=== PATIENT | female | born 1955 | race Caucasian/White ===

== ENCOUNTER 2024-07-07 09:40 | Emergency (ER) | payer MEDICARE, OTHER, SELFPAY ==
--- NOTE | ~2024-07-07 | XR_ITS ---
EXAMINATION: XR elbow RT min 3V DATE: 07/07/2024 11:28 INDICATION: Right elbow pain and swelling post fall TECHNIQUE: Anteroposterior, two oblique and lateral views of the right elbow were obtained. COMPARISON: None. FINDINGS: Alignment is normal. Subtle cortical discontinuity the right radial head neck junction with subtle li near sclerosis extending transversely across the head neck junction consistent with a minimally impac michelle fracture. No evident involvement of the articular cortex. Mild osteoarthritis at the right elbow. Small enthesophytes at the medial and lateral epicondyles. Small right elbow joint effusion with dis placement of the anterior but not the posterior fat pads. Soft tissues are otherwise unremarkable. IMPRESSION: 1. Minimally impacted fracture the proximal right radial head neck junction with small elbow joint ef fusion. Reviewed, dictated and finalized at location A. IMPRESSION: 1. Minimally impacted fracture the proximal right radial head neck junction wit h small elbow joint effusion.
--- NOTE | ~2024-07-07 | XR_ITS ---
EXAMINATION: XR wrist RT min 3V DATE: 07/07/2024 11:29 INDICATION: Right wrist pain and swelling post fall TECHNIQUE: Posteroanterior, ulnar deviation, oblique, and lateral views of the right wrist were obtai valentina. COMPARISON: none FINDINGS: Alignment is normal. No fracture. Mild polyarticular osteoarthritis at the wrist, distal radioulnar, triscaphe, first carpometacarpal joint and many of the visualized interphalangeal joints. Soft tissue s are unremarkable. IMPRESSION: 1. Polyarticular osteoarthritis at the right hand and wrist. No acute osseous abnormality. Reviewed, dictated and finalized at location A. IMPRESSION: 1. Polyarticular osteoarthritis at the right hand and wrist. No acute osseous a bnormality.
--- NOTE | ~2024-07-07 | XR_ITS ---
EXAMINATION: [id number] DATE: 07/07/2024 11:28 INDICATION: Right rib pain post fall TECHNIQUE: A frontal inspiratory view of the chest and I views of the right ribs were obtained. COMPARISON: None FINDINGS: Old healed fracture at the right humeral neck. Irregular contours suspicious for minimally displaced fracture of the anteriormost fourth-seventh ribs although differential would include artifact of the costochondral calcifications. Lungs are clear with no focal airspace opacities, pulmonary edema, pleu ral effusion or pneumothorax. Heart size within normal limits for AP technique. Left ventricular assi st device. Dual lead pacemaker/AICD seen with leads projecting over the expected locations of the rig ht atrium and right ventricle. IMPRESSION: 1. Possible acute minimally displaced fracture of the anterior right fourth-seventh ribs. Correlate f or point tenderness at this location. Alternatively this could be artifact of costochondral calcifica tions. 2. No pneumothorax or other acute cardiopulmonary disease. Reviewed, dictated and finalized at location A. IMPRESSION: 1. Possible acute minimally displaced fracture of the anterior right fourth-sev enth ribs. Correlate for point tenderness at this location. Alternatively this could be artifact of costochondral calcifications. 2. No pneumothorax or other acute cardiopulmonary disease.
--- NOTE | ~2024-07-07 | XR_ITS ---
EXAMINATION: XR finger 1st LT min 2V DATE: 07/07/2024 11:29 INDICATION: Left thumb pain and swelling TECHNIQUE: Dorsal palmar, lateral and oblique views of the left first digit were obtained COMPARISON: None FINDINGS: Bone alignment is normal. No fracture. Mild osteoarthritis at the distal radioulnar and at the first carpometacarpal, metacarpophalangeal and interphalangeal joints. IMPRESSION: 1. Mild polyarticular osteoarthritis at the left hand and wrist. No acute osseous abnormality. Reviewed, dictated and finalized at location A. IMPRESSION: 1. Mild polyarticular osteoarthritis at the left hand and wrist. No acute osseo us abnormality.
--- OUTSIDE RECORDS SUMMARY | 2024-07-07 10:13 | XMS_ITS | Encounter Summary ---
Author Organization [facility] Address [address] [place] [address] Phone Care Team Providers Care Sweatband Decorating Machine Operator Name Role Phone Scotty Oneil MD Primary Care Provider [phone] Maeve Multani MD Unavailable [phone] Castillo Hollis MD Unavailable Kiara King RN Unavailable Gisel Byrd RN Unavailable [phone] Aleta Cevallos RN Unavailable [phone] Josette Ramirez MD Unavailable Miscellaneous, Not In File Unavailable Unava Zenia Brown MA Unavailable Encounter Details Date Type Department Care Team (Late st Contact Info) Description 07/23/2017 Telephone [facility] Cardiology [address] [facility] [address] [place] [address] [place] [address] Parth Bartlett MD [address] [facility] [address] [place] [address] Social History Tobacco Use Types Packs/Day Years Used Date Smoking Tobacco: Never Smokeless Tobacco: Never Alcohol Use Standard Drinks/Week Comments No 0 (1 standard drink = 0.6 oz pur e alcohol) Comments Unknown Sex and Gender Information Value Date Recorded Sex Assigned at Not on file Legal Sex Female 11:50 PM PC INSTALLATION ENGINEER Gender Identity Female 05/25/2020 10:45 AM CDT Sexual Orientation Straight 07/07/2019 7: 18 PM CDT documented as of this encounter Plan of Treatment Not on file documented as of this encounter Visit Diagnoses Not on filedocumented in this encounter Additional Health Concerns Infection Onset Date Last Indicated Resolved Time COVID: Suspected Comment:Removed after ID review. 06/08/2019 Rajat Riggsmeagan 06/07/2019 06/07/2019 06/08/2019 8:27 AM C DT MRSA 08/15/2019 08/15/2019 09/27/2020 5:00 AM CDT COVID: Suspected 02/14/2020 02/14/2020 02/15/2020 1:07 PM PC INSTALLATION ENGINEER Respiratory Infection (ZOHRA), contact + droplet Comment:Automatically added due to negative COVID-19 result. 02/15/2020 02/15/2020 02/29/2020 3:0 7 AM PC INSTALLATION ENGINEER COVID19 03/14/2020 03/14/2020 03/28/2020 3:06 AM PC INSTALLATION ENGINEER COVID: Recovered Comment:Added based on recent COVID infection. 03/28/2020 03/29/2020 07/26/2020 3:05 AM C DT COVID: Suspected 01/17/2022 01/17/2022 01/17/2022 10:16 AM PC INSTALLATION ENGINEER COVID19 02/12/2022 02/12/2022 02/25/2022 3:05 AM PC INSTALLATION ENGINEER COVID: Recovered Comment:Added based on recent COVID infection. 02/25/2022 02/25/2022 05/26/2022 3:05 AM C DT documented as of this encounter Care Teams Sweatband Decorating Machine Operator Relationship Specialty Start Date End Date [place] [address] PCP - General 05/10/16 Maeve Multani MD [address] [facility] [place] [address] Surgeon Breast Surgery 10/27/17 Castillo Hollis MD [address] [facility] [address] [place] [address] Radiation Oncology 10/27/17 Kiara King, RN [address] [facility] [address] [place] [address] SHOP Outpatient Spout Liner Helper 02/26/19 03/04/19 Gisel Byrd, RN [address] [facility] [address] [place] [address] SHOP Outpatient Spout Liner Helper 06/09/19 07/11/19 Aleta Cevallos, RN [address] [facility] [address] [place] [address] VAD Coordinator Hydroelectric Systems Technician 09/13/19 Josette Ramirez MD [address] [place] [address] Surgeon Cardiothoracic Surgery 09/15/19 Miscellaneous, Not In File 09/15/19 Zenia Gerber MA [address] [facility] [address] [place] [address] ACO Care Hobbies [employer] Crafts Sales Representative 11/28/20 11/28/20 documented as of this encounter
--- OUTSIDE RECORDS SUMMARY | 2024-07-07 10:13 | XMS_ITS | Encounter Summary ---
Author Organization [facility] Address [address] [place] [address] Care Team Providers Care Hospice Administrator Name Role Phone Scotty Oneil MD Primary Care Provider [phone] NerissaMaeve judd MD Unavailable [phone] Castillo Hollis MD Unavailable Aleta Cevallos RN Unavailable [phone] Josette Ramirez MD Unavailable [phone] Miscellaneous, Not In File Unavailable Unava Zenia Brown MA Unavailable [phone] Encounter Details Date Type Department Care Team (Late st Contact Info) Description 10/20/2019 Anticoagulation Tele phone Call [facility] Trans[facility] Heart [address] [facility] [address] Mailstop 24-21-119 [place] [address] Aleta Cevallos, RN [address] [facility] [address] [place] [address] Social History Tobacco Use Types Packs/Day Years Used Date Smoking Tobacco: Never Smokeless Tobacco: Never Alcohol Use Standard Drinks/Week Comments No 0 (1 standard drink = 0.6 oz pur e alcohol) Social Connection and Isolat ion Panel [NHANES] Answer Date Recorded In a typical week, how many times do you talk on the phone with family, friends, or neighbors? More than three times a week 06/10/2019 How often do you get togethe r with friends or relatives? More than three times a week 06/10/2019 How often do you attend chur ch or latter day services? More than 4 times per year 06/10/2019 Do you belong to any clubs o r organizations such as restorationism groups, unions, fraternal or athletic groups, or school groups? No 06/10/2019 How often do you attend meet ings of the clubs or organizations you belong to? Never 06/10/2019 Are you , , di vorced, , never , or living with a partner? 06/10/2019 Overall Financial Resource Strain (CARDIA) Answe r Date Recorded How hard is it for you to pa y for the very basics like food, housing, medical care, and heating? Not hard at all 06/10/2019 PHQ-2 Answer Date Recorded PHQ-2 Score 2 07/23/2019 Hunger Vital Sign Answer Date Recorded Within the past 12 months, y ou worried that your food would run out before you got the money to buy more. Never true 06/10/19 20 Within the past 12 months, t he food you bought just didn't last and you didn't have money to get more. Never true 06/10/2019 PRAPARE - Transportation Answer Date Re corded In the past 12 months, has l ack of transportation kept you from medical appointments or from getting medications? No 05/13 In the past 12 months, has l ack of transportation kept you from meetings, work, or from getting things needed for daily living? No 06/10/2019 Comments No Sex and Gender Information Value Date Recorded Sex Assigned at Not on file Legal Sex Female 11:50 PM SUPERVISOR BOATBUILDERS WOOD Gender Identity Female 05/25/2020 10:45 AM CDT Sexual Orientation Straight 07/07/2019 7: 18 PM CDT documented as of this encounter Plan of Treatment Not on file documented as of this encounter Visit Diagnoses Not on filedocumented in this encounter Additional Health Concerns Infection Onset Date Last Indicated Resolved Time MRSA 08/15/2019 08/15/2019 09/27/2020 5:00 AM CDT COVID: Suspected 02/14/2020 02/14/2020 02/15/2020 1:07 PM SUPERVISOR [employer]ATBUILD[employer] WOOD Respiratory Infection (ZOHRA), contact + droplet Comment:Automatically added due to negative COVID-19 result. 02/15/2020 02/15/2020 02/29/2020 3:0 7 AM SUPERVISOR BOATBUILD[employer] WOOD COVID19 03/14/2020 03/14/2020 03/28/2020 3:06 AM SUPERVISOR BOATBUILDERS WOOD COVID: Recovered Comment:Added based on recent COVID infection. 03/28/2020 03/29/2020 07/26/2020 3:05 AM C DT COVID: Suspected 01/17/2022 01/17/2022 01/17/2022 10:16 AM SUPERVISOR [employer]BUILD[employer]OD COVID19 02/12/2022 02/12/2022 02/25/2022 3:05 AM SUPERVISOR BOATBUILDERS [employer]OD COVID: Recovered Comment:Added based on recent COVID infection. 02/25/2022 02/25/2022 05/26/2022 3:05 AM C DT documented as of this encounter Care Teams Hospice Administrator Relationship Specialty Start Date End Date Scotty Oneil MD [address] [place] [address] PCP - General 05/10/16 Maeve Multani MD [address] [place] [address] Surgeon Breast Surgery 10/27/17 Castillo Hollis MD [address] [facility] [address] [place], [place] [id number] Radiation Oncology 10/27/17 Aleta Cevallos, RN [address] [address] VAD Coordinator After School Counselor 09/13/19 Josette Ramirez MD [address] [address] Surgeon Cardiothoracic Surgery 09/15/19 Miscellaneous, Not In File 09/15/19 Zenia Gerber MA [address] [place] [address] [address] [place] [address] ACO Care Windows Desktop Support 11/28/20 11/28/20 documented as of this encounter
--- OUTSIDE RECORDS SUMMARY | 2024-07-07 10:13 | XMS_ITS | Encounter Summary ---
Author Organization [facility] Address [address] [place] [address] Care Team Providers Care Federal Judge Name Role Phone Scotty Oneil MD Primary Care Provider [phone] NerissaMaeve judd MD Unavailable [phone] Castillo Hollis MD Unavailable Aleta Cevallos RN Unavailable [phone] Josette Ramirez MD Unavailable Miscellaneous, Not In File Unavailable Unava Zenia Brown MA Unavailable [phone] Encounter Details Date Type Department Care Team (Late st Contact Info) Description 10/13/2019 Telephone [facility] Radiology [address] [place] [address] Kirstin Elizabeth, REN Social History Tobacco Use Types Packs/Day Years [...] often do you attend chur ch or adventist services? More than 4 times per year 06/10/2019 Do you belong to any clubs o r organizations such as taoism groups, unions, fraternal or athletic groups, or [...] on file Legal Sex Female 11:50 PM JAVA WEB ARCHITECT Gender Identity Female 05/25/2020 10:45 AM CDT Sexual Orientation Straight 07/07/2019 7: 18 PM CDT documented as of this encounter Plan of Treatment Not on file documented as of this encounter Visit Diagnoses Not on filedocumented in this encounter Additional Health Concerns Infection Onset Date Last Indicated Resolved Time MRSA 08/15/2019 08/15/2019 09/27/2020 5:00 AM CDT COVID: Suspected 02/14/2020 02/14/2020 02/15/2020 1:07 PM JAVA WEB ARCHITECT Respiratory Infection (ZOHRA), contact + droplet Comment:Automatically added due to negative COVID-19 result. 02/15/2020 02/15/2020 02/29/2020 3:0 7 AM JAVA WEB ARCHITECT COVID19 03/14/2020 03/14/2020 03/28/2020 3:06 AM JAVA WEB ARCHITECT COVID: Recovered Comment:Added based on recent COVID infection. 03/28/2020 03/29/2020 07/26/2020 3:05 AM C DT COVID: Suspected 01/17/2022 01/17/2022 01/17/2022 10:16 AM JAVA WEB ARCHITECT COVID19 02/12/2022 02/12/2022 02/25/2022 3:05 AM JAVA WEB ARCHITECT COVID: Recovered Comment:Added based on recent COVID infection. 02/25/2022 02/25/2022 05/26/2022 3:05 AM C DT documented as of this encounter Care Teams Federal Judge Relationship Specialty Start Date End Date Scotty Oneil MD [address] [place] [address] PCP - General 05/10/16 [place] Trib[place] HousingMaeve MD [address] [place] [address] Surgeon Breast Surgery 10/27/17 Castillo Hollis MD [address] [facility] [address] [place] [address] Radiation Oncology 10/27/17 Aleta Cevallos, RN [address] [place] [address] VAD Coordinator Ice Cream Freezer 09/13/19 Josette Ramirez MD [address] [place] [address] Surgeon Cardiothoracic Surgery 09/15/19 Miscellaneous, Not In File 8/5/20 Zenia Gerber MA [address] [facility] [address] [place] [address] ACO Care Learning Solutions Specialist 11/28/20 11/28/20 documented as of this encounter
--- OUTSIDE RECORDS SUMMARY | 2024-07-07 10:14 | XMS_ITS | Referral Summary ---
Author Organization [facility] Address [address] [place] [address] Care Team Providers Care Supervisor Paste Mixing Name Role Phone Scotty Oneil MD Primary Care Provider [phone] Maeve Multani MD Unavailable [phone] Castillo Hollis MD Unavailable Aleta Cevallos RN Unavailable [phone] Josette Ramirez MD Unavailable [phone] Miscellaneous, Not In File Unavailable Unava ilable Encounters Date Type Department Care Team Description 06/10/2024 10:40 AM CDT - 06/10/2024 11:59 PM CDT Hospital Encounter [facility] Breast [facility] ([facility]) [address] [place] [id number] Breast calcification seen on mammogram Discharge Disposition: Discharge to home or self care 06/09/2024 10:45 AM CDT Therapy [facility] Physical [place] [address] [address] Maxine De Leon PTA Muscle weakness (generalized) (Primary Dx) 06/07/2024 Anticoagulation Telephone Call [facility] Transplant Heart [address] [facility] [address] Mail[address] -[phone] [place] [address] Aleta Cevallos, RN 06/07/2024 11:40 AM CDT Lab [facility] Laboratory [address] [place] [phone] LVAD (left ventricular assist device) present (HCC) 06/07/2024 10:45 AM CDT Therapy [facility] [place] [address] Spike Ott, PT Muscle weakness (generalized) (Primary Dx) 06/03/2024 11:15 AM CDT Therapy [facility] [place] [address] Spike Ott, PT Muscle weakness (generalized) (Primary Dx) 05/31/2024 10:45 AM CDT Therapy [facility] [place] [address] Maxine De Leon, LEAD ATHLETE Muscle weakness (generalized) (Primary Dx) 05/27/2024 10:45 AM CDT Therapy [facility] [place] [address] Maxine De Leon, LEAD ATHLETE Muscle weakness (generalized) (Primary Dx) 05/24/2024 11:30 AM CDT Therapy [facility] [place] [address] Spike Ott, PT Muscle weakness (generalized) (Primary Dx) 05/16/2024 Orders Only [facility] [address] [place] [phone] Scotty Oneil MD 05/13/2024 Anticoagulation Telephone Call [facility] Transplant Heart [address] [facility] [address] Mailstop [phone] [place] [address] Aleta Cevallos RN 05/13/2024 12:00 PM CDT Lab [facility] [address] [phone] LVAD (left ventricular assist device) present (HCC) 05/13/2024 9:30 AM CDT Office Visit [facility] [address] [facility] Medical [address] [place] [phone] Bradycardia (Primary Dx); SOB (shortness of breath); Chronic systolic congestive heart failure (CMS/HCC) (HCC); Coronary artery disease involving little river coronary artery of little river heart without angina pectoris; LVAD (left ventricular assist device) present ([facility]) 05/12/2024 1:00 PM CDT Therapy [facility] [place] [address] [address] Maxine De Leon, LEAD ATHLETE Muscle weakness (generalized) (Primary Dx) 05/10/2024 Telephone [facility] Endocrinology Metabolism and Lipid [address] [facility] 5th [place] [address] [place] [address] Candy Espinoza RN Prior Auth; ozempic 2 mg 05/10/2024 12:00 PM CDT Therapy [facility] [place] [address] [address] Spike Ott, PT Muscle weakness (generalized) (Primary Dx) 05/03/2024 2:30 PM CDT Therapy [facility] [place] [address] Maxine De Leon, LEAD ATHLETE Muscle weakness (generalized) (Primary Dx) 04/30/2024 1:45 PM CDT Therapy [facility] [place] [address] Maxine De Leon, LEAD ATHLETE Muscle weakness (generalized) (Primary Dx) 04/29/2024 Telephone [facility] Ophthalmology [address] [facility] 6th Floor, [address] Center for [facility] [address] Whitney Mitchell OD 04/28/2024 Anticoagulation Telephone Call [facility] Transplant Heart [address] [facility] [address] Mail[address] [phone] [place] [address] Aleta Cevallos RN 04/28/2024 11:00 AM CDT Lab [facility] [address] [place] [address] LVAD (left ventricular assist device) present ([facility]) 04/23/2024 10:30 AM CDT Office Visit [facility] [address] [place] [address] Stefanie Fajardo NP Acute non-recurrent maxillary sinusitis (Primary Dx); Class 3 severe obesity due to excess calories with serious comorbidity and body mass index (BMI) of 40.0 to 44.9 in adult ([facility]) 04/20/2024 11:00 AM CDT Therapy [facility] Therapy - [address] [place] [address] Spike Ott, PT Muscle weakness (generalized) (Primary Dx) 04/16/2024 Telephone [facility] [address] [facility] 8th [place] [address] [place] [address] Soledad Hedrick NP 04/14/2024 Telephone [facility] Endocrinology Metabolism and Lipid [address] [facility] 13th [place] [address] [place] [address] Mine Klein RMA ROI ([facility]) from Last 3 Months Allergies Active Allergy Reactions Criticality Noted Date Comments Empagliflozin Other (See comments) Low 10/31/2017 Yeast infection Lisinopril Cough Low 02/26/2018 Medications acetaminophen 500 mg capsule Take 2 capsules (1,000 mg total) by mouth every 6 (six) hours as needed for pain, headaches or fever 30 tablet 09/15/19 20 Active fenofibrate (TRICOR) 54 mg tabletIndicati ons:hyperlipid emia Take 1 tablet (54 mg total) by mouth daily Active docusate sodium (COLACE) 100 mg capsuleIndicat ions:constipat ion Take 1 capsule (100 mg total) by mouth 2 (two) times a day as needed for constipation 11/28/19 21 Active pen needle, diabetic 31 gauge x 5/16 needleIndicati ons:Controlled type 2 diabetes mellitus with hyperglycemia, with long-term current use of insulin ([facility]) Use to inject 1-4 times daily as directed. 300 each 4 07/17/19 22 Active blood glucose diagnostic (glucose blood) stripIndicatio ns:Controlled type 2 diabetes mellitus with hyperglycemia, with long-term current use of insulin ([facility]) Check blood sugar four times a day or as directed 400 each 11 03/13/19 23 Active glucagon (Gvoke HypoPen 1-Pack) 1 mg/0.2 mL auto-injectorI ndications:Typ e 2 diabetes mellitus with hyperglycemia, with long-term current use of insulin ([facility]) Use as directed for severe low blood sugar 0.2 mL 2 03/20/19 23 Active terbinafine (LamISIL) 1 % cream Apply topically 2 (two) times a day 30 g 2 03/20/19 23 Active blood-glucose transmitter (Dexcom G6 Transmitter) deviceIndicati ons:Type 2 diabetes mellitus without complication, with long-term current use of insulin ([facility]) Use one transmitter one every 3 months 1 each 3 07/19/19 23 Active ergocalciferol (VITAMIN D) 50,000 unit capsuleIndicat ions:Vitamin D deficiency TAKE 1 CAPSULE BY MOUTH 1 TIME A WEEK 12 capsule 3 08/11/19 24 Active metOLazone (ZAROXOLYN) 2.5 mg tablet Take 1 tablet (2.5 mg total) by mouth 3 (three) times a week 36 tablet 3 09/10/19 24 025 Active Ozempic 2 mg/dose (8 mg/3 mL) pen injector injectionIndic ations:Type 2 diabetes mellitus without complication, with long-term current use of insulin ([facility]) INJECT 2 MG UNDER THE SKIN EVERY 7 DAYS 3 mL 3 11/12/19 24 Active magnesium oxide (MAG-OX) 400 mg (241.3 mg elemental magnesium) tablet TAKE 1 TABLET(400 MG) BY MOUTH TWICE DAILY 60 tablet 11 11/17/19 24 Active insulin glargine (TOUJEO) 300 unit/mL (1.5 mL) pen for injectionIndic ations:Type 2 diabetes mellitus without complication, with long-term current use of insulin ([facility]) Inject 38 Units under the skin daily 12 mL 3 01/05/20 24 Active omeprazole (PriLOSEC) 20 mg capsule TAKE 1 CAPSULE(20 MG) BY MOUTH DAILY 90 capsule 3 01/12/20 24 Active ondansetron (ZOFRAN) 4 mg tablet Take 1 tablet (4 mg total) by mouth every 8 (eight) hours as needed for nausea 20 tablet 2 01/14/20 24 Active bumetanide (BUMEX) 1 mg tablet TAKE 3 TABLETS BY MOUTH TWICE DAILY 540 tablet 3 01/26/20 24 Active rosuvastatin (CRESTOR) 40 mg tablet TAKE 1 TABLET(40 MG) BY MOUTH EVERY NIGHT 90 tablet 3 01/26/20 24 Active insulin aspart (NovoLOG) 100 unit/mL (3 mL) pen for injectionIndic ations:Control led type 2 diabetes mellitus with hyperglycemia, with long-term current use of insulin ([facility]) Inject 13 units three times a day with meal : if you skip a meal, skip this dose. sliding scale : 3 units for every 50 points above 150 three times a day with meals, based on sugar value BEFORE the meal. # Novolog 4 units with snacks if your sugar before the snack is above 140-150. Max TDD 100 units daily 90 mL 3 02/07/20 24 Active warfarin (COUMADIN) 2 mg tablet Take 2mg daily; 3mg fri/e 03/11/19 25 Active metoprolol XL (TOPROL-XL) 25 mg extended release tablet TAKE 1 TABLET(25 MG) BY MOUTH DAILY 30 tablet 3 04/05/19 25 Active albuterol HFA (PROVENTIL HFA,VENTOLIN HFA,PROAIR HFA) 90 mcg/actuation inhalerIndicat ions:Acute non-recurrent maxillary sinusitis Inhale 2 puffs every 6 (six) hours as needed for wheezing 3 each 4 04/24/19 25 026 Active fluticasone propionate (FLONASE) 50 mcg/actuation nasal sprayIndicatio ns:Acute non-recurrent maxillary sinusitis Administer 2 sprays into each nostril daily 3 each 4 04/24/19 25 Active allopurinoL (ZYLOPRIM) 100 mg tablet TAKE 1 TABLET(100 MG) BY MOUTH DAILY 90 tablet 05/07/19 25 Active ALPRAZolam (XANAX) 0.25 mg tablet TAKE 1 TABLET(0.25 MG) BY MOUTH THREE TIMES DAILY NEEDED FOR ANXIETY 90 tablet 05/07/19 25 Active spironolactone (ALDACTONE) 25 mg tablet TAKE 1 TABLET(25 MG) BY MOUTH DAILY 90 tablet 3 05/04/19 25 Active potassium chloride ER 20 mEq CR tablet 1 tablet (20 mEq total) daily 05/10/19 25 Active cephalexin (KEFLEX) 250 mg capsule TAKE 1 CAPSULE(250 MG) BY MOUTH EVERY NIGHT 30 capsule 2 06/15/19 25 Active pregabalin (LYRICA) 25 mg capsuleIndicat ions:Polyneuro anita associated with underlying disease TAKE 1 CAPSULE(25 MG) BY MOUTH TWICE DAILY 60 capsule 1 06/25/19 25 Active cephalexin (KEFLEX) 250 mg capsule Take 1 capsule (250 mg total) by mouth nightly 30 capsule 2 03/15/19 25 025 Discontinued pregabalin (LYRICA) 25 mg capsuleIndicat ions:Polyneuro anita associated with underlying disease Take 1 capsule (25 mg total) by mouth 2 (two) times a day 60 capsule 05/20/19 25 025 Discontinued Active Problems Problem Noted Date Diagnosed Date Acute non-recurrent maxillary sinusitis 04/24/19 25 Assessment & Plan (04/23/2024 10:37 AM CDT): Will start on Augmentin, Medrol dose pack, Flonase, and Albuterol inhaler to help with infection and symptoms. Will continue to monitor. Orders: albuterol HFA (PROVENTIL HFA,VENTOLIN HFA,PROAIR HFA) 90 mcg/actuation inhaler; Inhale 2 puffs every 6 (six) hours as needed for wheezing methylPREDNISolone (MEDROL DOSEPACK) 4 mg Dosepack; Take as directed on package. 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 WIll continue to follow with ophthalmology and endocrinology as well. History of breast cancer 10/10/2023 Assessment & Plan (10/10/2023 9:09 AM CDT): No evidence of recurrence. BMI 40.0-44.9, adult 10/10/2023 Assessment & Plan (10/10/2023 9:09 AM CDT): As above. Annual physical exam 10/10/2023 Assessment & Plan (10/10/2023 9:10 AM CDT): Focus of exam is prevnetative in nature. Reviewed age and comorbid appropriate screening recommendations and will monitor response. Acute kidney injury superimposed on chronic kidn ey disease 07/17/2023 Assessment & Plan (07/18/2023 10:35 AM CDT): Per review of chart, BL Cr appears to be ~1.6. Cr 1.92 on admit. -renal fxn stable -continue to hold losartan at discharge--may resume as OP -Hold PM Bumex -Avoid nephrotoxins, renally dose meds as appropriate -Avoid hypotension Assessment & Plan (07/17/2023 1:35 PM CDT): Per review of chart, BL Cr appears to be ~1.6. Cr 1.92 on admit. -Cr slightly up trending -Hold losartan at this time -Hold PM Bumex -Avoid nephrotoxins, renally dose meds as appropriate -Avoid hypotension -BMP daily UTI (urinary tract infection) 07/15/2023 Assessment & Plan (07/18/2023 10:36 AM CDT): Presenting with complicated UTI due to recurrence despite prophylactic antibiotics and systemic symptoms of confusion, weakness, and ROBRET. Typical symptoms UTI with grossly positive UA 4+ LE, > 50 WBC, 3+ bacteria. She has remote urine culture 2019 showing bird susceptible Klebsiella and resistant Enterococcus. Will trial her on ceftriaxone and follow up urine cultures from [facility] -culture has grown Proteus -ceftriaxone 2 g daily transitioned to cefepime (previous resistance to CTX in 2019) -kidney US to r/o structural abnormalities: Small left angiomyolipoma. Otherwise normal kidneys. No hydronephrosis. -will discharge on Cipro mg daily x 3 more days Assessment & Plan (07/17/2023 1:29 PM CDT): Presenting with complicated UTI due to recurrence despite prophylactic antibiotics and systemic symptoms of confusion, weakness, and ROBERT. Typical symptoms UTI with grossly positive UA 4+ LE, > 50 WBC, 3+ bacteria. She has remote urine culture 2019 showing bird susceptible Klebsiella and resistant Enterococcus. Will trial her on ceftriaxone and follow up urine cultures from [facility] -ceftriaxone 2 g daily transitioned to cefepime (previous resistance to CTX in 2019) -follow-up urine cultures, pending susceptibilities -kidney US to r/o structural abnormalities: Small left angiomyolipoma. Otherwise normal kidneys. No hydronephrosis. Weakness 07/15/2023 Assessment & Plan (07/15/2023 10:58 PM CDT): Global weakness without focal deficits. Likely secondary to untreated complicated UTI. Head CT negative. -PT OT evaluation Hypertropia of right eye 05/05/2023 Assessment & Plan (05/05/2023 11:46 AM CDT): History of remakes/glasses seeming off for year Significant improvement with prism - release Rx, pt ed on adaptation No s/sx concerning for GCA Pattern of deviation consistent with R cranial nerve (CN) 4 paresis Exophoria 04/22/2023 Assessment & Plan (04/22/2023 11:36 AM CDT): Recheck alternate cover test (ACT) at dist/near and fusional ranges non dilated at FU Combined forms of age-related cataract of both e yes 04/22/2023 Assessment & Plan (04/22/2023 11:35 AM CDT): Defer cataract surgery until signs and symptoms indicate. Pt was educated on the diagnosis. Recommend daily UV protection. Encounter for observation fo r other suspected diseases and conditions ruled out 04/22/2023 Generalized contraction of visual field, bilater al 04/22/2023 Assessment & Plan (04/22/2023 11:35 AM CDT): Better on visual field (VF) than confrontations - non specific defects OU Fall 02/13/2022 Assessment & Plan (02/14/2022 12:57 PM HEAD WAITER/WAITRESS): Patient states she was feeling weak and her wheelchair was only locked on one side which caused her to lose her balance and have a mechanical fall (no loss of consciousness) -[employer] ICD interrogation-no arrhythmias -PT/OT evaluated the patient Spo2 96% on room air with activity. pt denied SOB Assessment & Plan (02/13/2022 5:29 PM HEAD WAITER/WAITRESS): Patient states she was feeling weak and her wheelchair was only locked on one side which caused her to lose her balance and have a mechanical fall (no loss of consciousness) -[employer] ICD interrogation-no arrythmias Closed nondisplaced fracture of surgical neck of right humerus 02/12/2022 Assessment & Plan (02/15/2022 9:22 AM HEAD WAITER/WAITRESS): In the setting of a mechanical fall -Right upper extremity imaging with comminuted impacted fracture of the surgical neck of the right humerus with a fracture involving the greater tuberosity as well with mild displacement of fracture fragments and varus alignment of the primary distal fracture fragment. -Orthopedics consulted, recommended non-operative management, right arm sling, non-weight bearing RUE -PRN Tylenol ,oxycodone and lidocaine patches for pain -pt reports that pain is now well controlled on current regimen -PT/OT evaluations Assessment & Plan (02/14/2022 12:34 PM HEAD WAITER/WAITRESS): In the setting of a mechanical fall -Right upper extremity imaging with comminuted impacted fracture of the surgical neck of the right humerus with a fracture involving the greater tuberosity as well with mild displacement of fracture fragments and varus alignment of the primary distal fracture fragment. -Orthopedics consulted, recommended non-operative management, right arm sling, non-weight bearing RUE -PRN Tylenol ,oxycodone and lidocaine patches for pain -PT/OT evaluations Assessment & Plan (02/13/2022 5:40 PM HEAD WAITER/WAITRESS): In the setting of a mechanical fall -Right upper extremity imaging with comminuted impacted fracture of the surgical neck of the right humerus with a fracture involving the greater tuberosity as well with mild displacement of fracture fragments and varus alignment of the primary distal fracture fragment. -Orthopedics consulted, recommended non-operative management, right arm sling, non-weight bearing RUE -PRN Tylenol and tramadol for pain -PT/OT evaluations Stage 3 chronic kidney disease 02/12/2022 Assessment & Plan (02/14/2022 12:59 PM HEAD WAITER/WAITRESS): -Serum Cr currently at baseline -Daily BMPs -Avoid nephrotoxins Assessment & Plan (02/13/2022 5:01 PM HEAD WAITER/WAITRESS): -Serum Cr currently at baseline -Daily BMPs -Avoid nephrotoxins Morbid (severe) obesity due to excess calories 0 10/16/2021 Irritable bowel syndrome with diarrhea 2 Tinea corporis 10/16/2021 Conductive hearing loss, bilateral 05/08/2021 Assessment & Plan (05/08/2021 10:16 AM CDT): Avoid ear cleaning techniques Avoid water to ears Follow up in one year Impacted cerumen of right ear 05/08/2021 Assessment & Plan (07/25/2023 10:45 AM CDT): Avoid ear cleaning techniques Follow up as needed for ear check Assessment & Plan (05/08/2021 10:16 AM CDT): Avoid ear cleaning techniques Avoid water to ears Follow up in one year Polyneuropathy associated with underlying diseas e 12/20/2020 Assessment & Plan (10/10/2023 9:08 AM CDT): No open wounds/sores. No new neuropathy progressive symptoms. Assessment & Plan (02/14/2022 12:59 PM HEAD WAITER/WAITRESS): -Continue home Pregabalin Assessment & Plan (02/13/2022 5:01 PM HEAD WAITER/WAITRESS): -Continue home Pregabalin Left ventricular assist device (LVAD) complicati on 11/26/2020 Assessment & Plan (11/26/2020 11:57 PM CDT): Driveline pain likely secondary to irritation at exit site. Associated dried blood without purulence. This may be in the setting of changing brands of earlene patches to anchor her driveline approximately 1 week ago. She also no longer has a stitch to anchor her driveline. Although differential includes DLI, there is only mild erythema at driveline site with discharge and her CT shows no signs of infection. There is some fat stranding anterior to the driveline as it enters the rectus, but it does not appear contiguous with her driveline and it likely represents SQ inflammation from site of insulin administration. There is no associated tenderness in this area on exam. -no LVAD alarms -suspect driveline irritation -no sample to culture -CT abdominal wall fat stranding correlates with SQ insulin injections -holding off on antibiotics at this time -will reposition external driveline with less tension and re-assess Atrial fibrillation 11/26/2020 Assessment & Plan (10/10/2023 9:09 AM CDT): Continue f/u cardiology. No s/s of fluid overload. Assessment & Plan (02/15/2022 9:21 AM HEAD WAITER/WAITRESS): -Paroxysmal atrial fibrillation but currently in sinus rhythm -Continue home Metoprolol for rate control -Continue warfarin for AC (INR at 2.3) -Monitor on telemetry and replete serum electrolytes for a goal K >4.0 and Mg >2.0 Assessment & Plan (02/14/2022 12:31 PM HEAD WAITER/WAITRESS): -Paroxysmal atrial fibrillation but currently in sinus rhythm -Continue home Metoprolol for rate control -Continue warfarin for AC (INR at 2.3) -Monitor on telemetry and replete serum electrolytes for a goal K >4.0 and Mg >2.0 Assessment & Plan (02/13/2022 5:09 PM HEAD WAITER/WAITRESS): -Paroxysmal atrial fibrillation but currently in sinus rhythm -Continue home Metoprolol for rate control and warfarin for AC -Monitor on telemetry and replete serum electrolytes for a goal K >4.0 and Mg >2.0 Assessment & Plan (11/26/2020 11:04 PM CDT): Anticoagulated on warfarin for LVAD as above. Metoprolol discontinued in May due to persistent volume overload, RV dysfunction, and multivalvular abnormalities -continue warfarin as above -continuous telemetry LVAD (left ventricular assist device) present Assessment & Plan (10/10/2023 9:09 AM CDT): No complications at the present time. Assessment & Plan (07/18/2023 10:37 AM CDT): Status post DT HeartMate 3 implantation on 08/24/2019 complicated by driveline infection in 2020 with completion of doxycycline therapy and without recurrence. -continue home warfarin 2 mg daily, INR goal 2-3 -continue aspirin 81 mg daily -continue metoprolol 25 mg daily, spironolactone 25 mg daily -stop losartan -Continue home bumex and discharge today -hold coumadin x 2 days and then decrease to 1mg until Cipro finished Assessment & Plan (07/17/2023 1:36 PM CDT): Status post DT HeartMate 3 implantation on 08/24/2019 complicated by driveline infection in 2020 with completion of doxycycline therapy and without recurrence. -continue home warfarin 2 mg daily, INR goal 2-3 -continue aspirin 81 mg daily -continue metoprolol 25 mg daily, spironolactone 25 mg daily -holding losartan due to ROBERT -continue Bumex 3 mg b.i.d. PO--hold PM dose -strict I&Os, daily standing weights, low-Na diet -telemetry Assessment & Plan (02/15/2022 9:23 AM HEAD WAITER/WAITRESS): S/p HeartMate 3 implanted 08/24/2019 (DT) -LVAD functioning appropriately without alarms -INR currently 3.2 (INR goal 2.0-3.0) -Continue warfarin 3 mg daily and 2 mg on Friday and Friday -Daily INRs Assessment & Plan (02/14/2022 12:58 PM HEAD WAITER/WAITRESS): S/p HeartMate 3 implanted 08/24/2019 -LVAD functioning appropriately without alarms -INR currently 2.3 (INR goal 2.0-3.0) -Continue warfarin 3 mg daily and 2 mg on Friday and Friday -Daily INRs Assessment & Plan (02/13/2022 5:24 PM HEAD WAITER/WAITRESS): S/p HeartMate 3 implanted 08/24/2019 -LVAD functioning appropriately without alarms -INR currently 2.3 (INR goal 2.0-3.0) -Continue warfarin 3 mg daily and 2 mg on Friday and Friday -Daily INRs Assessment & Plan (11/26/2020 11:46 PM CDT): HeartMate 3 on 08/24/2019 with RV dysfunction, moderate MR and severe TR. She has had challenges with maintaining volume status, but has not required hospitalziation. Diuretics were recently increased to Bumex 3 mg BID with metolazone PRN. She frequently needs metolazone 3x/week. -Status post 1000cc IVF in ED, instructed to hold on further IVF -resume diuresis Bumex 3 mg BID -metolazone PRN, usually requires multiple doses -continue ASA 325 mg -continue warfarin 4 mg and Friday, 3 mg other days -continue losartan 25 mg daily and spironolactone 12.5 mg daily -strict I/Os, daily standing weights, low sodium diet, continuous telemetry Physical deconditioning 09/10/2019 Assessment & Plan (09/13/2019 8:20 AM CDT): Due to acute illness and prolonged hospitalization 09/09 was first day of sit to stand but unable to pivot Clarke lift to chair PT/OT Will need placement: SNF vs Rehab Assessment & Plan (09/12/2019 2:24 PM CDT): Patient severely deconditioned 09/09 was first day of sit to stand but unable to pivot Clarke lift to chair PT/OT Will need placement: SNF vs Rehab Assessment & Plan (09/11/2019 2:11 PM CDT): Patient severely deconditioned 09/09 was first day of sit to stand but unable to pivot Clarke lift to chair PT/OT Will need placement: SNF vs Rehab Assessment & Plan (09/10/2019 3:36 PM CDT): Patient severely deconditioned Today was first day of sit to stand but unable to pivot Clarke lift to chair PT/OT Will need placement: SNF vs Rehab Myocarditis 09/01/2019 Assessment & Plan (09/12/2019 2:24 PM CDT): Giant cell myocarditis. Cardiology recommends holding off on immunotherapy at this time given recent LVAD placement and acute illness. Assessment & Plan (09/11/2019 2:10 PM CDT): Giant cell myocarditis. Cardiology recommends holding off on immunotherapy at this time given recent LVAD placement and acute illness. Assessment & Plan (09/07/2019 9:08 AM CDT): Giant cell myocarditis. Cardiology recommends holding off on immunotherapy at this time given recent LVAD placement and acute illness. 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 Cardiology recommends holding off on immunotherapy at this time given recent LVAD placement and acute illness. Atrial fibrillation with RVR 08/26/2019 Assessment & Plan (07/18/2023 10:30 AM CDT): -Currently paced -Continue BB -Anticoagulation with warfarin -Telemetry Assessment & Plan (07/17/2023 1:23 PM CDT): -Currently paced -Continue BB -Anticoagulation with warfarin -Telemetry Assessment & Plan (09/13/2019 8:23 AM CDT): Pt vtach/a fib/ PVCs persistently. Pt has ICD for hx of VF arrest. ICD interrogated/turned on (08/24), set to shock for rate > 200. S/p amio load and oral without rate control. Cardioversion 08/29 was unsuccessful x4. Started on dilt gtt. - amiodarone 200mg daily - currently SR - on systemic anticoagulation Assessment & Plan (09/12/2019 2:24 PM CDT): Pt vtach/a fib/ PVCs persistently. Pt has ICD for hx of VF arrest. ICD interrogated/turned on (08/24), set to shock for rate > 200. S/p amio load and oral without rate control. Cardioversion 08/29 was unsuccessful x4. Started on dilt gtt. - amiodarone 200mg daily - A paced rhythm - on systemic anticoagulation Assessment & Plan (09/11/2019 2:10 PM CDT): Pt vtach/a fib/ PVCs persistently. Pt has ICD for hx of VF arrest. ICD interrogated/turned on (08/24), set to shock for rate > 200. S/p amio load and oral without rate control. Cardioversion 08/29 was unsuccessful x4. Started on dilt gtt. - amiodarone 200mg daily - A paced rhythm - on systemic anticoagulation Assessment & Plan (09/10/2019 3:27 PM CDT): Pt vtach/a fib/ PVCs persistently. Pt has ICD for hx of VF arrest. ICD interrogated/turned on (08/24), set to shock for rate > 200. S/p amio load and oral without rate control. Cardioversion 08/29 was unsuccessful x4. Started on dilt gtt. - amiodarone 200mg daily - A paced rhythm - on systemic anticoagulation- therapeutic Assessment & Plan (09/01/2019 11:42 PM CDT): Pt vtach/a fib/ PVCs persistently. Pt has ICD for hx of VF arrest. ICD interrogated/turned on (08/24), set to shock for rate > 200. S/p amio load and oral without rate control. Cardioversion 08/29 was unsuccessful x4. Started on dilt gtt. - dilt gtt stopped - PO amio 400 mg TID Assessment & Plan (09/01/2019 1:32 AM CDT): Pt vtach/a fib/ PVCs persistently. Pt has ICD for hx of VF arrest. ICD interrogated/turned on (08/24), set to shock for rate > 200. S/p amio load and oral without rate control. Cardioversion 08/29 was unsuccessful x4. Started on dilt gtt. - dilt gtt stopped - PO amio Assessment & Plan (08/31/2019 2:20 AM CDT): Pt vtach/a fib/ PVCs persistently. Pt has ICD for hx of VF arrest. ICD interrogated/turned on (08/24), set to shock for rate > 200. S/p amio load and oral without rate control. Cardioversion 08/29 was unsuccessful x4. Started on dilt gtt. - dilt gtt for goal HR < 110 Assessment & Plan (08/30/2019 3:03 AM CDT): Pt vtach/a fib/ PVCs persistently. Pt has ICD for hx of VF arrest. ICD interrogated/turned on (08/24), set to shock for rate > 200 - amio gtt completed on 08/26 - amio 400 TID Assessment & Plan (08/29/2019 2:37 AM CDT): Pt vtach/a fib/ PVCs persistently. Pt has ICD for hx of VF arrest. ICD interrogated/turned on (08/24), set to shock for rate > 200 - amio gtt completed on 08/26 - amio 400 TID Assessment & Plan (08/27/2019 4:44 PM CDT): Pt vtach/a fib/ PVCs persistently. Pt has ICD for hx of VF arrest. ICD interrogated/turned on (08/24), set to shock for rate > 200 - amio gtt completed on 08/26 - amio 400 TID Assessment & Plan (08/27/2019 12:43 AM CDT): Pt vtach/a fib/ PVCs persistently. Pt has ICD for hx of VF arrest. ICD interrogated/turned on (08/24), set to shock for rate > 200 - amio gtt @ 1 - prn amio bolus Assessment & Plan (08/26/2019 2:42 AM CDT): Pt vtach/a fib/ PVCs persistently. Pt has ICD for hx of VF arrest. ICD interrogated/turned on (08/24) - responds well to amio boluses (2 received overnight). - amio gtt - lidocaine gtt. - prn amio bolus Hyponatremia 08/16/2019 Assessment & Plan (09/09/2019 10:17 AM CDT): Sodium remains low Assessment & Plan (08/19/2019 2:28 PM CDT): Chronically low sodium in the 120-127 range likely related to severe heart failure. -started vaptan 15mg daily per heart failure, 08/18 MRSA (methicillin resistant Staphylococcus aureus) infection 08/16/2019 Assessment & Plan (09/10/2019 3:30 PM CDT): MRSA UTI. UA on 08/14- IV Ceftriaxone started 08/14--> switched to IV Vancomycin 08/16 after urine culture speciated to MRSA. 08/16 blood cx x2 - vancomycin completed (08/23-09/06). - WBC mildly elevated - pt afebrile - Will continue to monitor Assessment & Plan (09/01/2019 11:42 PM CDT): MRSA UTI. UA on 08/14 with over 50 wbc's, over 50 rbc's, 3+ leuk esterase. IV Ceftriaxone started 08/14--> switched to IV Vancomycin 08/16 after urine culture speciated to MRSA. 08/16 blood cx x2. Repeat UA with 21-50 WBC, 3+ LE (08/16). - tx vancomycin 750 q12, for 2 weeks post-op (08/23-09/06). - redosed vancomycin to 1g daily until 09/06 Assessment & Plan (09/01/2019 1:31 AM CDT): MRSA UTI. UA on 08/14 with over 50 wbc's, over 50 rbc's, 3+ leuk esterase. IV Ceftriaxone started 08/14--> switched to IV Vancomycin 08/16 after urine culture speciated to MRSA. 08/16 blood cx x2. Repeat UA with 21-50 WBC, 3+ LE (08/16). - tx vancomycin 750 q12, for 2 weeks post-op (08/23-09/06). Assessment & Plan (08/31/2019 2:18 AM CDT): MRSA UTI. UA on 08/14 with over 50 wbc's, over 50 rbc's, 3+ leuk esterase. IV Ceftriaxone started 08/14--> switched to IV Vancomycin 08/16 after urine culture speciated to MRSA. 08/16 blood cx x2. Repeat UA with 21-50 WBC, 3+ LE (08/16). - tx vancomycin 750 q12, for 2 weeks post-op (08/23-09/06). Assessment & Plan (08/30/2019 3:03 AM CDT): MRSA UTI. UA on 08/14 with over 50 wbc's, over 50 rbc's, 3+ leuk esterase. IV Ceftriaxone started 08/14--> switched to IV Vancomycin 08/16 after urine culture speciated to MRSA. 08/16 blood cx x2. Repeat UA with 21-50 WBC, 3+ LE (08/16). - tx vancomycin 750 q12, for 2 weeks post-op (08/23-09/06) - vanc currently stopped, repeat vanc level and resume vanc if possible. Assessment & Plan (08/29/2019 2:36 AM CDT): MRSA UTI. UA on 08/14 with over 50 wbc's, over 50 rbc's, 3+ leuk esterase. IV Ceftriaxone started 08/14--> switched to IV Vancomycin 08/16 after urine culture speciated to MRSA. 08/16 blood cx x2. Repeat UA with 21-50 WBC, 3+ LE (08/16). - tx vancomycin 750 q12, for 2 weeks post-op (08/23-09/06) Assessment & Plan (08/27/2019 4:43 PM CDT): MRSA UTI. UA on 08/14 with over 50 wbc's, over 50 rbc's, 3+ leuk esterase. IV Ceftriaxone started 08/14--> switched to IV Vancomycin 08/16 after urine culture speciated to MRSA. 08/16 blood cx x2. Repeat UA with 21-50 WBC, 3+ LE (08/16). - tx vancomycin 750 q12, for 2 weeks post-op (08/23-09/06) Assessment & Plan (08/27/2019 12:39 AM CDT): MRSA UTI. UA on 08/14 with over 50 wbc's, over 50 rbc's, 3+ leuk esterase. IV Ceftriaxone started 08/14--> switched to IV Vancomycin 08/16 after urine culture speciated to MRSA. 08/16 blood cx x2. Repeat UA with 21-50 WBC, 3+ LE (08/16). - tx vancomycin 750 q12, for 2 weeks post-op (08/23-09/06) - holding vanc today given high trough level Assessment & Plan (08/25/2019 4:09 PM CDT): MRSA UTI. UA on 08/14 with over 50 wbc's, over 50 rbc's, 3+ leuk esterase. IV Ceftriaxone started 08/14--> switched to IV Vancomycin 08/16 after urine culture speciated to MRSA. 08/16 blood cx x2. Repeat UA with 21-50 WBC, 3+ LE (08/16). - tx vancomycin 750 q12, for 2 weeks post-op (08/23-09/06) - vanc trough 2-3x/wk Assessment & Plan (08/25/2019 3:52 AM CDT): MRSA UTI. UA on 08/14 with over 50 wbc's, over 50 rbc's, 3+ leuk esterase. -IV Ceftriaxone started 08/14--> switched to IV Vancomycin 08/16 after urine culture speciated to MRSA -08/16 blood cx x2 -repeat UA with 21-50 WBC, 3+ LE (08/16) - tx vancomycin 750 q12, for 2 weeks post-op (08/23-09/06) Assessment & Plan (08/24/2019 7:31 PM CDT): MRSA UTI. UA on 08/14 with over 50 wbc's, over 50 rbc's, 3+ leuk esterase. -IV Ceftriaxone started 08/14--> switched to IV Vancomycin 08/16 after urine culture speciated to MRSA -08/16 blood cx x2 -repeat UA with 21-50 WBC, 3+ LE (08/16) - tx vancomycin 750 q12, for 2 weeks post-op (08/23-09/06) Chronic systolic congestive heart failure (CMS/H CC) 08/08/2019 Overview (08/16/2019): Added automatically from request for surgery [id number] Assessment & Plan (02/15/2022 9:18 AM HEAD WAITER/WAITRESS): ACC/AHA stage D heart failure secondary to NICM s/p HeartMate 3 on 08/24/2019 with RV dysfunction, moderate MR and severe TR -S/p Medtronic dual-chamber ICD -Pt remains hemodynamically stable, euvolemic on exam -Continue Bumex 2 mg BID for now -Continue losartan 25 mg daily, metoprolol XL 25 mg daily and spironolactone 12.5 mg daily -Strict I/Os, daily standing weights, low sodium diet, continuous telemetry while in house -plan to discharge home today after last remdesevir dose -last echo ( showed moderate RV dysfxn so will plan to discharge on home diuretic regimen (bumex 3/3 + metolazone MWF ) Assessment & Plan (02/14/2022 12:32 PM HEAD WAITER/WAITRESS): ACC/AHA stage D heart failure secondary to NICM s/p HeartMate 3 on 08/24/2019 with RV dysfunction, moderate MR and severe TR -S/p Medtronic dual-chamber ICD -Hemodynamically stable, euvolemic on exam -Continue Bumex 2 mg BID -Continue losartan 25 mg daily, metoprolol XL 25 mg daily and spironolactone 12.5 mg daily -Strict I/Os, daily standing weights, low sodium diet, continuous telemetry Assessment & Plan (02/13/2022 5:24 PM HEAD WAITER/WAITRESS): ACC/AHA stage D heart failure secondary to NICM s/p HeartMate 3 on 08/24/2019 with RV dysfunction, moderate MR and severe TR -S/p Medtronic dual-chamber ICD -Hemodynamically stable, euvolemic on exam -Continue Bumex 1 mg BID -Continue losartan 25 mg daily, metoprolol XL 25 mg daily and spironolactone 12.5 mg daily -Strict I/Os, daily standing weights, low sodium diet, continuous telemetry Acute on chronic combined sy stolic (congestive) and diastolic (congestive) heart failure 08/08/2019 Overview (08/17/2019): Added automatically from request for surgery [id number] Hx of adenomatous colonic polyps 07/09/2019 ICD (implantable cardioverter-defibrillator) in place 06/24/2019 Urinary tract infection 06/08/2019 Assessment & Plan (11/26/2020 11:41 PM CDT): Recurrent UTIs currently on suppressive therapy without dysuria on admission -continue Keflex 250 mg daily Assessment & Plan (09/14/2019 7:29 AM CDT): UA grossly positive (obtained at time of cox placement), culture with enterobacter sensitive to cefepime. -patient reports chronic UTI (7-9) this year - may consider chronic suppression after treatment -cox was placed due to limited mobility and excoriated perineum - Cefepime day 4/7 Assessment & Plan (09/12/2019 2:30 PM CDT): UA grossly positive (obtained at time of cox placement), culture is pending -continue cefepime -patient reports chronic UTI (7-9) this year - may consider chronic suppression after treatment -cox was placed due to limited mobility and excoriated perineum Assessment & Plan (06/09/2019 9:11 AM CDT): UA with 21-50 WBCs, 3+ LE, suggestive of UTI. - Urine cx growing Klebsiella, sensitivities pending. - Started on ceftriaxone 1 g IV daily (06/06-). - Will transition to Keflex 250 mg q6h for treatment on discharge for additional 3 days (total 5 days of treatment). Sensitivities pending but had urine cx in Mar growing Klebsiella susceptible to many antibiotics including Keflex. Will follow up on sensitivities and call patient if need to change antibiotics. Cellulitis of right upper extremity 03/09/2019 Assessment & Plan (03/09/2019 9:11 AM HEAD WAITER/WAITRESS): S/p Vanc x 2 Will discharge on doxy Cardiac arrest with ventricular fibrillation Assessment & Plan (03/09/2019 9:12 AM HEAD WAITER/WAITRESS): - Admitted 02/24 following Vfib arrest. Required chest compressions, defibrillation and epinephrine - [facility] 02/24 with widely patent stents in the LAD and obtuse marginal branch and unchanged CAD from prior [facility] in 09/2018 - Was not cooled. Now back at baseline mental status. - Cardiac arrest felt to be due to arrhythmia in the setting of acute on chronic CHF - Was on amiodarone for ectopy earlier this admission. Now discontinued. - Patient not willing to repeat cMRI - S/p ICD placement Assessment & Plan (03/02/2019 6:23 PM HEAD WAITER/WAITRESS): Unable to view telemetry in the ED showing ventricular fibrillation. Patient previously seen by Dr. De La Paz for SVT where possible SVT ablation had been discussed. S/p multiple rounds of CPR, epinephrine, amiodarone, defibrillation. Per collaborative physician, most likely 2/2 acute on chronic CHF, malignant HTN, and respiratory failure. On arrival to the floor, EKG in sinus tachycardia with 1st degree block. TTE 02/25 shows new reduced LVEF 20% - Monitoring BMP, Mg q12 hours for electrolyte repletion - Patient was not cooled. She received prompt CPR in the ED here per her family and per ED sign out. In addition, the ED notes indicate that she was responding to her name and groaning. On the floor overnight, she was wiggling her toes and regarding to command. She thus has clear neurologic recovery and will not derive benefit from cooling at this time -02/26 stable without pressors, no episodes of VT/VF in CCU. Some ectopy 02/26, s/p amio bolus/gtt and metop inc to 25 q8 (from XL 50 qD). -03/01, will transition to amio 400 mg TID (has received 2.2 g IV since admission), held on 03/02 due to bradycardia/hypotension - Will consult heart failure and EP Abnormal findings on cardiac catheterization Overview (09/03/2018): Added automatically from request for surgery [id number] NSTEMI (non-ST elevated myocardial infarction) 0 08/25/2018 Overview (08/25/2018): Added automatically from request for surgery [id number] SVT (supraventricular tachycardia) 08/13/2018 Assessment & Plan (08/13/2018 3:58 AM CDT): Currently resolved. Hemodynamically stable. Patient is chest pain-free. Patient received 2 doses of adenosine and 1 dose of IV metoprolol. Will continue with p.o. Carvedilol b.i.d. Echocardiogram is pending in a.m.. Will trend troponins. TSH was slightly elevated. Will get free T3-T4 levels. Continue telemetry monitoring. Will check electrolytes in a.m.. Elevated troponin 08/13/2018 Assessment & Plan (06/08/2019 8:19 AM CDT): Trop elevated to 0.06 on admission. EKG without acute changes. Likely 2/2 to demand ischemia from HFrEF exacerbation vs. less likely true ACS. Also has chronically elevated trop at baseline. Recent cath (03/01): Widely patent stents in the LAD and OM, 40% proximal LAD occlusion, 40% mid-RCA occlusion, mild diffuse disease in CFX - Trop 0.06 --> 0.06, d/c'd trend. - Management of HFrEF as above. Assessment & Plan (08/13/2018 4:04 AM CDT): Initial troponins negative Second sample was consistent with elevated troponins at 0.3. Patient at this point remains chest pain-free and otherwise asymptomatic. Will continue with telemetry monitoring continue trending troponin. Continue with Nitro-Bid and aspirin. Echocardiogram is pending in a.m.. Patient states that does not want to have any extensive cardiac workup in [facility] and would like to have a follow-up and further evaluation at her cardiology office. Discussed with the patient if the troponins Will trend down she will most likely be discharged home however if troponins continue to rise she will need to stay in the hospital. Patient verbalized understanding Nonrheumatic aortic valve regurgitation 06/22/19 17 Neoplasm of uncertain behavior of breast 016 Mass of breast 11/23/2015 Assessment & Plan (07/18/2023 10:28 AM CDT): History of breast cancer status post definitive treatment. Assessment & Plan (07/15/2023 10:56 PM CDT): History of breast cancer status post definitive treatment. Abrasion of toe 11/02/2015 Overview (05/17/2016): Toe abrasion, right, initial encounter Periodic limb movement disorder 06/21/2015 Overview (05/17/2016): Periodic limb movement disorder Hypersomnia with sleep apnea 05/12/2015 Overview (05/17/2016): Hypersomnia with sleep apnea Assessment & Plan (10/10/2023 9:08 AM CDT): Reviewed nightl sleep pattern and import of therapy. Obstructive sleep apnea syndrome 05/12/2015 Overview (05/18/2016): Obstructive sleep apnea Assessment & Plan (02/15/2022 9:16 AM HEAD WAITER/WAITRESS): Continue nocturnal CPAP Assessment & Plan (02/14/2022 12:58 PM HEAD WAITER/WAITRESS): Continue nocturnal CPAP Assessment & Plan (02/12/2022 9:21 PM HEAD WAITER/WAITRESS): Nocturnal CPAP Assessment & Plan (09/01/2019 11:41 PM CDT): Patient compliant with CPAP at home. Settings are 11-13. - extubated, on CPAP at night. - Patient intermittently refusing CPAP Assessment & Plan (09/01/2019 1:31 AM CDT): Patient compliant with CPAP at home. Settings are 11-13. - extubated, on CPAP at night. - Patient intermittently refusing CPAP Assessment & Plan (08/31/2019 2:18 AM CDT): Patient compliant with CPAP at home. Settings are 11-13. - extubated, on CPAP at night. Assessment & Plan (08/30/2019 2:59 AM CDT): Patient compliant with CPAP at home. Settings are 11-13. Pt on ventilator currently. - extubated, on CPAP at night. Assessment & Plan (08/29/2019 2:36 AM CDT): Patient compliant with CPAP at home. Settings are 11-13. Pt on ventilator currently. - Wean sedation + vent Assessment & Plan (08/27/2019 4:43 PM CDT): Patient compliant with CPAP at home. Settings are 11-13. Pt on ventilator currently. - Wean sedation + vent Assessment & Plan (08/27/2019 12:39 AM CDT): Patient compliant with CPAP at home. Settings are 11-13. Pt on ventilator currently. - Wean sedation + vent Assessment & Plan (08/25/2019 4:08 PM CDT): Patient compliant with CPAP at home. Settings are 11-13. Pt on ventilator currently. - Wean sedation + vent Assessment & Plan (08/25/2019 3:51 AM CDT): Patient compliant with CPAP at home. Settings are 11-13 - pt on ventilator currently. - Wean sedation + vent. Assessment & Plan (08/24/2019 7:26 PM CDT): Patient compliant with CPAP at home. Settings are 11-13 - pt on ventilator currently. - Wean sedation + vent. Assessment & Plan (06/07/2019 10:18 AM CDT): On CPAP at home - Continue home CPAP Assessment & Plan (08/27/2018 9:17 PM CDT): -on CPAP, continue as home settings Assessment & Plan (08/13/2018 4:04 AM CDT): Restart CPAP Chest pain 03/31/2015 Assessment & Plan (03/05/2019 11:38 AM HEAD WAITER/WAITRESS): Improved - R sided, worsened with inspiration, reproduced with palpation - Likely MSK chest pain due to chest compressions. CXR with no obvious rib fractures. - Lidocaine patch, PRN Tylenol Triple vessel coronary artery disease 03/31/2015 Assessment & Plan (02/15/2022 9:17 AM HEAD WAITER/WAITRESS): History of coronary artery disease complicated by NSTEMI and VF arrest in February of 2019 and multiple prior PCIs -Currently without any angina or equivalent symptoms -Continue aspirin 81 mg daily and Crestor 40 mg daily -continue aggressive risk factor modification Assessment & Plan (02/14/2022 12:59 PM HEAD WAITER/WAITRESS): History of coronary artery disease complicated by NSTEMI and VF arrest in February of 2019 and multiple prior PCIs -Currently without any angina or equivalent symptoms -Continue aspirin 81 mg daily and Crestor 40 mg daily Assessment & Plan (02/13/2022 5:23 PM HEAD WAITER/WAITRESS): History of coronary artery disease complicated by NSTEMI and VF arrest in February of 2019 and multiple prior PCIs -Currently without any angina or equivalent symptoms -Continue aspirin 81 mg daily and Crestor 40 mg daily Assessment & Plan (09/13/2019 11:36 AM CDT): Patient has 4 stents placed in 2007 (3 LAURA, 1 BMS) - Continue aspirin 325, statin Assessment & Plan (09/12/2019 2:24 PM CDT): Patient has 4 stents placed in 2007 (3 LAURA, 1 BMS), has been on aspirin and plavix since. - Continue aspirin 325 - cont statin - hold plavix Assessment & Plan (09/11/2019 2:11 PM CDT): Patient has 4 stents placed in 2007 (3 LAURA, 1 BMS), has been on aspirin and plavix since. - Continue aspirin 325 - cont statin - hold plavix Assessment & Plan (09/07/2019 9:09 AM CDT): Patient has 4 stents placed in 2007 (3 LAURA, 1 BMS), has been on aspirin and plavix since. - Continue aspirin 325 - cont statin - hold plavix Assessment & Plan (09/01/2019 11:41 PM CDT): Patient has 4 stents placed in 2007 (3 LAURA, 1 BMS), has been on aspirin and plavix since. - Continue aspirin 81 - hold plavix Assessment & Plan (09/01/2019 1:31 AM CDT): Patient has 4 stents placed in 2007 (3 LAURA, 1 BMS), has been on aspirin and plavix since. - Continue aspirin 81 - hold plavix Assessment & Plan (08/31/2019 2:18 AM CDT): Patient has 4 stents placed in 2007 (3 LAURA, 1 BMS), has been on aspirin and plavix since. - Continue aspirin 81 - hold plavix Assessment & Plan (08/30/2019 3:00 AM CDT): Patient has 4 stents placed in 2007 (3 LAURA, 1 BMS), has been on aspirin and plavix since. - Continue aspirin 81 - hold plavix Assessment & Plan (08/29/2019 2:36 AM CDT): Patient has 4 stents placed in 2007 (3 LAURA, 1 BMS), has been on aspirin and plavix since. - Continue aspirin 81 - hold plavix Assessment & Plan (08/27/2019 4:43 PM CDT): Patient has 4 stents placed in 2007 (3 LAURA, 1 BMS), has been on aspirin and plavix since. - Continue aspirin 81 - hold plavix Assessment & Plan (08/27/2019 12:42 AM CDT): Patient has 4 stents placed in 2007 (3 LAURA, 1 BMS), has been on aspirin and plavix since. - Continue aspirin 81 - hold plavix Assessment & Plan (08/25/2019 4:09 PM CDT): Patient has 4 stents placed in 2007 (3 LAURA, 1 BMS), has been on aspirin and plavix since. - Continue aspirin 81 - hold plavix Assessment & Plan (08/25/2019 3:51 AM CDT): Patient has 4 stents placed in 2007 (3 LAURA, 1 BMS), has been on aspirin and plavix since. - Continue aspirin 81 - hold plavix Assessment & Plan (08/24/2019 7:27 PM CDT): Patient has 4 stents placed in 2007 (3 LAURA, 1 BMS), has been on aspirin and plavix since. - Continue aspirin 81 - hold plavix Assessment & Plan (03/03/2019 12:24 AM HEAD WAITER/WAITRESS): - [facility] 02/24/2019 with widely patent stents in LAD and obtuse marginal branch. Most recent LAURA placed to LAD in 09/2018 - 40% proximal LAD occlusion, 40% mid-RCA occlusion and mild diffuse disease in CFX also noted - ASA, Plavix, rosuvastatin Palpitations 06/23/2014 Assessment & Plan (08/13/2018 4:04 AM CDT): Secondary to SVT. Resolved. Type 2 diabetes mellitus, wi th long-term current use of insulin 06/26/2013 Overview (05/18/2016): DMII WO CMP NT [facility] Assessment & Plan (10/10/2023 9:07 AM CDT): Good glycemic control. Continue f/u with Endocrine at [facility]. Appreciate their expertise. Assessment & Plan (07/18/2023 10:28 AM CDT): Longstanding history of DM2 requiring insulin. Home regimen includes long-acting 36 units nightly, short-acting 13-16 units t.i.d. a.c. will dose reduce as follows: -Lantus 30 units q.h.s. -Lispro 10-->7 units t.i.d. a.c. due to poor po -SSI, point care glucose q.i.d. Assessment & Plan (07/17/2023 1:21 PM CDT): Longstanding history of DM2 requiring insulin. Home regimen includes long-acting 36 units nightly, short-acting 13-16 units t.i.d. a.c. will dose reduce as follows: -Lantus 30 units q.h.s. -Lispro 10-->7 units t.i.d. a.c. due to poor po -SSI, point care glucose q.i.d. Assessment & Plan (04/22/2023 11:35 AM CDT): No retinopathy on DFE both eyes (OU). Pt ed. Stressed BG control (HbA1C<7) to reduce the risk for diabetic ocular complications. Lab Results Component Value Date HGBA1C 5.9 02/12/2023 Assessment & Plan (02/15/2022 9:16 AM HEAD WAITER/WAITRESS): -Poorly controlled, last A1c 10.4 at time of admission -Endocrine consulted, recommendations: -Lantus 40 units nightly -Humalog 15 units TID AC -Resistant correctional Humalog TID AC, HS -POC glucoses TID AC, HS, 2AM when eating -Consistent carb diet when eating, no juices, no regular soda -Consult the diabetes nurse educator to meet with her -Pt's blood sugars have been adequately controlled here on current regimen -Rx for lantus and mounjaro sent to pharmacy for patrick check Assessment & Plan (02/14/2022 12:59 PM HEAD WAITER/WAITRESS): -Poorly controlled, last A1c 10.4 -Endocrine consulted, recommendations: -Lantus 40 units nightly -Humalog 15 units TID AC -Resistant correctional Humalog TID AC, HS -POC glucoses TID AC, HS, 2AM when eating -Consistent carb diet when eating, no juices, no regular soda -Consult the diabetes nurse educator to meet with her -When NPO, continue Lantus, hold mealtime Humalog, change correctional (sliding scale) Humalog and POC glucoses to Q4hr -Carb consistent diet -Accuchecks Assessment & Plan (02/13/2022 5:40 PM HEAD WAITER/WAITRESS): -Poorly controlled, last A1c 10.4 -Endocrine consulted, recommendations: -Lantus 40 units nightly -Humalog 15 units TID AC -Resistant correctional Humalog TID AC, HS -POC glucoses TID AC, HS, 2AM when eating -Consistent carb diet when eating, no juices, no regular soda -Consult the diabetes nurse educator to meet with her -When NPO, continue Lantus, hold mealtime Humalog, change correctional (sliding scale) Humalog and POC glucoses to Q4hr -Carb consistent diet -Accuchecks Assessment & Plan (11/26/2020 11:53 PM CDT): Current home regimen NPH 40 units BID and Lispro 12-20 units TID AC. Last A1c 8.2% on 10/2020 -dose reduce NPH 30 units BID -lispro 8 units TID AC -SSI -POC BG QID Assessment & Plan (09/14/2019 7:28 AM CDT): - holding home meformin 1000 mg BID - mid-dose SSI, NPH 10 unit BID with goal BG 100-180 - BS last 24 hours 138-183 Assessment & Plan (09/12/2019 2:26 PM CDT): - hold home meformin 1000 mg BID + NPH - mid-dose SSI - goal BG 100-180 - BS last 24 hours 150 - 217 - add NPH 10 units BID Assessment & Plan (09/11/2019 2:12 PM CDT): - hold home meformin 1000 mg BID - mid-dose SSI - goal BG 100-180 - BS last 24 hours Assessment & Plan (09/10/2019 3:29 PM CDT): - hold home meformin 1000 mg BID - mid-dose SSI - goal BG 100-180 - BS last 24 hours 162-208 Assessment & Plan (09/01/2019 11:40 PM CDT): S/p LVAD (08/23) - hold home meformin 1000 mg BID - NPH 35U TID - mid-dose SSI - goal BG 100-180 Assessment & Plan (09/01/2019 1:31 AM CDT): S/p LVAD (08/23) - hold home meformin 1000 mg BID - NPH 30U TID - mid-dose SSI - goal BG 100-180 Assessment & Plan (08/31/2019 2:19 AM CDT): S/p LVAD (08/23) - hold home meformin 1000 mg BID - NPH 20U TID - mid-dose SSI - goal BG 100-180 Assessment & Plan (08/30/2019 2:55 AM CDT): S/p LVAD (08/23) - hold home meformin 1000 mg BID - insulin gtt - goal BG 100-180 - consider switching off of gtt to SSI Assessment & Plan (08/29/2019 2:36 AM CDT): S/p LVAD (08/23) - hold home meformin 1000 mg BID - insulin gtt - goal BG 100-180 Assessment & Plan (08/28/2019 2:18 AM CDT): S/p LVAD (08/23) - hold home meformin 1000 mg BID - insulin gtt - goal BG 100-180 Assessment & Plan (08/27/2019 12:42 AM CDT): S/p LVAD (08/23) - hold home meformin 1000 mg BID - insulin gtt - goal BG 100-180 Assessment & Plan (08/25/2019 4:08 PM CDT): S/p LVAD (08/23) - hold home meformin 1000 mg BID - insulin gtt @ 3 - MDSSI + NPH 5 TID previously while on the floor Assessment & Plan (08/25/2019 3:51 AM CDT): S/p LVAD (08/23) -hold home meformin 1000 mg BID - insulin gtt @ 7 - MDSSI + NPH 5 TID previously while on the floor. Assessment & Plan (08/24/2019 7:26 PM CDT): S/p LVAD (08/23) -hold home meformin 1000 mg BID - insulin gtt - MDSSI + NPH 5 TID previously while on the floor. Assessment & Plan (06/09/2019 9:11 AM CDT): Per chart most recently on NPH 35 BID and aspart 50 units total on average spread over mealtimes. Recently, due to poor appetite, patient's BGs have been lower in the low 100s and has been taking no mealtime and only 30 units NPH BID. BG low at 76 on presentation. Overall well controlled on regimen below. - Ordered NPH 20 units BID without mealtime for now given lower BGs, adjust PRN - MD SSI - QID accuchecks - Consistent carb diet Assessment & Plan (03/03/2019 12:35 AM HEAD WAITER/WAITRESS): - A1c 6.9% 02/11/2019 - Home regimen: Metformin 1000 mg BID, NPH 35 units BID, lispro 50 unites total daily - Inpatient regimen: NPH 27 units BID, lispro 16 units TID with meals, HDSSI Assessment & Plan (03/02/2019 6:25 PM HEAD WAITER/WAITRESS): A1c on 02/11/2019 was 6.9. At home, on metformin 1000 mg BID, NPH 35 units BID, and lispro about 50 total daily per most recent PCP notes. BG in the ED and o/n were in the 200s-300s. Although home NPH 35 units was ordered in the ED, this was apparently never administered. - Holding home metformin - On 03/01, transitioned from insulin gtt to NPH 18 q8 and Lispro 18 TID with meals - Holding home gabapentin 300 mg TID Assessment & Plan (08/27/2018 9:09 PM CDT): - home metformin 1000 mg BID, NPH 35 and 35 AM PM, novalog 12-15 with every meal -well controlled sugars at home, HbA1c 5.9 Assessment & Plan (08/13/2018 4:08 AM CDT): Continue with NPH 50 units t.i.d. With meals. Start on low-dose insulin sliding scale per hyperglycemia protocol CAD (coronary artery disease) 06/26/2013 Overview (05/17/2016): CHR ISCHEMIC HRT DIS NOS Assessment & Plan (10/10/2023 9:10 AM CDT): Secondary preveniton and will montior repsonse. Assessment & Plan (07/18/2023 10:29 AM CDT): History of CAD complicated by NSTEMI in VF arrest in February 2019. Also has had multiple prior PCIs. Currently without chest pain symptoms -continue aspirin 81 mg daily, rosuvastatin 40 mg daily Assessment & Plan (07/15/2023 10:56 PM CDT): History of CAD complicated by NSTEMI in VF arrest in February 2019. Also has had multiple prior PCIs. Currently without chest pain symptoms -continue aspirin 81 mg daily, rosuvastatin 40 mg daily Assessment & Plan (11/26/2020 11:04 PM CDT): Status post multiple PCI, currently chest pain free -continue ASA and statin therapy Assessment & Plan (06/08/2019 8:20 AM CDT): Most recent cath in 03/11 with widely patent stents in the LAD and OM, 40% proximal LAD occlusion, 40% mid-RCA occlusion, mild diffuse disease in CFX. EKG without acute changes. Trop 0.06 likey 2/2 to demand ischemia from acute HF exacerbation. - Troponin 0.06 --> 0.06; d/c'd trend. 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 Initial troponins were negative. Second troponin noted to be Elevated Patient is chest pain-free and otherwise asymptomatic. Will trend troponins. Continue Nitro-Bid. Continue with beta-mohini Continue aspirin. Patient currently on statin. Echo in a.m.. Consider Cardiology consult in a.m. Hyperlipidemia 11/07/2011 Assessment & Plan (02/15/2022 9:08 AM HEAD WAITER/WAITRESS): -Continue home Crestor Assessment & Plan (02/14/2022 12:57 PM HEAD WAITER/WAITRESS): -Continue home Crestor Assessment & Plan (02/13/2022 5:02 PM HEAD WAITER/WAITRESS): -Continue home Crestor Class 3 severe obesity due t o excess calories with serious comorbidity and body mass index (BMI) of 40.0 to 44.9 in adult 06/26/2010 Overview (05/22/2017): Description: Obesity Assessment & Plan (04/23/2024 10:37 AM CDT): Encouraged heart healthy diet and lifestyle. Advised 150 min/week of aerobic exercise. Assessment & Plan (02/15/2022 9:22 AM HEAD WAITER/WAITRESS): -BMI 48 -encourage aggressive management of DM and weight control Benign essential hypertension 06/26/2010 Overview (05/22/2017): Description: Benign Essential Hypertension Assessment & Plan (03/07/2019 9:47 AM HEAD WAITER/WAITRESS): - Normotensive following arrest - Irbesartan 300 mg daily, metoprolol 12.5 daily, spironolactone 25 mg daily Assessment & Plan (03/02/2019 6:23 PM HEAD WAITER/WAITRESS): Initially arrived to the floor on nitro gtt at 5 with systolics in the 160s. Overnight, BP downtrended and nitro gtt was weaned off. - Restart home irbesartan 150 mg daily for BP control->300 mg daily as of 02/28 for improved BP control - held on 03/02 due to bradycardia and hypotension to the 80s systolics - On metop 25 q8 hours - held on 03/02 due to bradycardia and hypotension to the 80s systolics - Restarted HCTZ 25 mg daily 02/27, stopped 03/01 in favor of amlodipine 10 mg daily Assessment & Plan (08/27/2018 9:16 PM CDT): -very elevated BP in ED 200s/100s -had stopped HCTZ at home because she began metoprolol -well controlled in house on hctz 25, irbesartan 150, metoprolol 25 -discharge home on these medicines tomorrow CHF (congestive heart failure) Assessment & Plan (10/10/2023 9:08 AM CDT): LVAD in place and continue f/u with Dr. Zhang on every 3 month basis. Resolved Problems Problem Noted Date Diagnosed Date Resolved Date Morbid obesity with BMI of 40.0-44.9, adult 10/10/2023 11/19/2023 Assessment & Plan (10/10/2023 9:09 AM CDT): Encoruage 150min/week aerobic exericse. Healthy food choices. Other closed nondisplaced fr acture of proximal end of left humerus, initial encounter 02/12/2022 02/12/2022 Acute respiratory failure 08/29/2019 Overview (08/29/2019): Unable to wean pt from vent Assessment & Plan (09/01/2019 1:32 AM CDT): Post-op respiratory failure. Extubated 08/29. - wean NC as tolerated - home CPAP as needed Assessment & Plan (08/31/2019 2:17 AM CDT): Post-op respiratory failure. Extubated 08/29. - wean NC as tolerated - home CPAP as needed Assessment & Plan (08/30/2019 3:04 AM CDT): PSV trials after surgery resulted in tachypnea & respiratory distress - pt extubated - xanax 0.25 x1 used successfully for tachypneia/agitation. Pt drowsy at baseline, limiting narcotic use. Severe malnutrition (CMS/HCC) 08/16/2019 12/20/2020 Hepatopathy 08/09/2019 08/16/2019 Assessment & Plan (08/10/2019 11:33 AM CDT): Admission LFTs were AST 295, ALT 236, Alk Phos 216, T Bili 1.9. Suspect congestive hepatopathy given evidence of RH failure and shock - Trending LFTs: have been downtrending Hyperkalemia 08/09/2019 08/16/2019 Assessment & Plan (08/10/2019 11:33 AM CDT): Patient's K on admission BMP was 5.8, not hemolyzed. Patient received insulin and glucose, Ca gluconate, and lasix as part of cardiogenic shock tx. Repeat whole blood K was 4.6 - Hold home spironolactone and irbesartan - BMP QDay Shock 08/09/2019 08/16/2019 Assessment & Plan (08/10/2019 11:59 AM CDT): Patient has cool extremities with poor cap refill, elevated lactic acid on presentation, with warm hands and feet now. Suspect cardiogenic etiology, however, evaluating for infection - UA: LE only 1+ with trace bacteria - CXR unremarkable - Fu BCx and UCx Change in bowel habits 07/27/201908/15 Overview (07/27/2019): Added automatically from request for surgery [id number] Unexplained weight loss 07/27/2019 07/0 07/2019 Overview (07/27/2019): Added automatically from request for surgery [id number] Chronic nausea 07/09/2019 08/16/2019 Diarrhea 06/07/2019 08/16/2019 Assessment & Plan (08/10/2019 11:32 AM CDT): Patient has ongoing diarrhea for past several years. Being evaluated as an outpatient, provisional diagnosis IBS-D, no diarrhea since admission - d/c Bentyl - consider PRN oxy - on regular diet Assessment & Plan (06/09/2019 9:09 AM CDT): Patient with frequent loose, watery stools since over the past several months with 7 stools the day [employer]. Did receive abx for a UTI around March. - Planned to check C diff given recent abx and frequent loose watery stools; however, patient did not have any more loose stools. - COVID negative Suspected COVID-19 virus infection 06/07/2019 06/09/2019 Assessment & Plan (06/08/2019 8:18 AM CDT): Patient with possible symptoms c/w COVID including SOB, decreased taste/smell, abdominal complaints although more likely is just from HFrEF exacerbation with volume overload. Denies fevers/chills, bodyaches, change in cough (has chronic cough), sick contacts. Has remained at home in the past several weeks without going anywhere except for a few doctors visits. Lives at home with who has also remained at home. Given symptoms with hospital exposure, will test for COVID. - COVID test NEGATIVE Acute on chronic systolic heart failure 03/03/2019 07/11/2021 Assessment & Plan (09/13/2019 8:16 AM CDT): S/p LVAD 08/23 - TTE 09/10 due to alarms: RV failure slightly worse, AV closed, mild AR, severe TR - ASA 325, cozaar for afterload reduction - INR 2.8 from 3.5- warfarin to 1mg Po daily - LVAD teaching to be completed- scheduled 09/12 and 09/13 with anticipated discharge 09/14 Assessment & Plan (09/12/2019 2:24 PM CDT): S/p LVAD 08/23 - Pacemaker reset 08/24 - AAI/DDD 90 - Lasix 40 mg IV BID - Continue Norvasc 10 mg daily - 09/02 ECHO stable - TTE 09/10 due to alarms: RV failure slightly worse, AV closed, mild AR, severe TR - ASA 325, rosuvastatin - INR supra-therapeutic - give 0.5mg tonight - LVAD teaching to be completed- scheduled 09/12 and 09/13 with anticipated discharge to [facility] 09/14 - likely will need [facility] extended care as patient standing but unable to pivot, clarke lift to chair Assessment & Plan (09/11/2019 2:10 PM CDT): S/p LVAD 08/23 - Pacemaker reset 08/24 - AAI/DDD 90 - Lasix 40 mg IV BID - Continue losartan, will add Norvasc 10 mg daily - 09/02 ECHO stable - TTE today for multiple PI alarms and low speed on 09/09 - ASA 325, rosuvastatin - INR supra-therapeutic - hold coumadin tonight - LVAD teaching to be completed- scheduled 09/12 and 09/13 with anticipated discharge to [facility] 09/14 Assessment & Plan (09/10/2019 3:27 PM CDT): S/p LVAD 08/23 - Pacemaker reset 08/24 - AAI/DDD 90 - Lasix 40 mg IV BID - net negative - Continue losartan, will add Norvasc 10 mg daily - 09/02 ECHO stable - will repeat today for PI alarms and low speed - ASA 325, rosuvastatin - INR supra-therapeutic - coumadin down to 0.5 - LVAD teaching to be completed- scheduled 09/12 and 09/13 with anticipated discharge to [facility] 09/14 Assessment & Plan (09/01/2019 11:43 PM CDT): TTE on 08/08: LV is markedly dilated. LVEF 20% with akinesis of inferior and inferolateral arroyo. RV is poorly visualized; at least mild dysfunction. Mild AR, mod-severe MR, mod TR. Heart failure consulted while patient was on cardiology firm for evaluation of advanced heart failure therapies. Underwent right heart catheterizationon 08/16 with leave in PA catheter. S/p LVAD 08/23. PA pressures post op 30s/10s. Post-procedure echo shows moderate RV dysfunction, and severe TR (cardiac index will have to be calculated using brynn's). - Pacemaker reset 08/24 - AAI/DDD 90 - milrinone off - epinephrine off - lasix gtt stopped, 40 IV BID started - levo/vaso vs. nicard for MAP 70-90 - ASA81, rosuvastatin - heparin gtt on nomogram - sildenafil 10mg BID for pulmonary htn. - warfarin 2mg daily Assessment & Plan (09/01/2019 1:30 AM CDT): TTE on 08/08: LV is markedly dilated. LVEF 20% with akinesis of inferior and inferolateral arroyo. RV is poorly visualized; at least mild dysfunction. Mild AR, mod-severe MR, mod TR. Heart failure consulted while patient was on cardiology firm for evaluation of advanced heart failure therapies. Underwent right heart catheterizationon 08/16 with leave in PA catheter. S/p LVAD 08/23. PA pressures post op 30s/10s. Post-procedure echo shows moderate RV dysfunction, and severe TR (cardiac index will have to be calculated using brynn's). - Pacemaker reset 08/24 - AAI/DDD 90 - milrinone off - epinephrine off - lasix gtt stopped, 40 IV BID started - levo/vaso vs. nicard for MAP 70-90 - ASA, statin - heparin gtt on nomogram - sildenafil 10mg BID for pulmonary htn. Assessment & Plan (08/31/2019 2:17 AM CDT): TTE on 08/08: LV is markedly dilated. LVEF 20% with akinesis of inferior and inferolateral arroyo. RV is poorly visualized; at least mild dysfunction. Mild AR, mod-severe MR, mod TR. Heart failure consulted while patient was on cardiology firm for evaluation of advanced heart failure therapies. Underwent right heart catheterizationon 08/16 with leave in PA catheter. S/p LVAD 08/23. PA pressures post op 30s/10s. Post-procedure echo shows moderate RV dysfunction, and severe TR (cardiac index will have to be calculated using brynn's). - Pacemaker reset 08/24 - AAI/DDD 90 - milrinone @ 0.4 for inodilation. - epinephrine off - holding lasix gtt given overall FB of negative 1.3L - levo/vaso vs. nicard for MAP 70-90 - ASA, statin - heparin gtt on nomogram - sildenafil 10mg BID for pulmonary htn. Assessment & Plan (08/30/2019 3:01 AM CDT): Most recent TTE on 08/08: LV is markedly dilated. LVEF 20% with akinesis of inferior and inferolateral arroyo. RV is poorly visualized; at least mild dysfunction. Mild AR, mod-severe MR, mod TR. Heart failure consulted while patient was on cardiology firm for evaluation of advanced heart failure therapies. Underwent right heart catheterizationon 08/16 with leave in PA catheter. S/p LVAD 08/23. PA pressures post op 30s/10s. Post-procedure echo shows moderate RV dysfunction, and severe TR (cardiac index will have to be calculated using brynn's). - Pacemaker reset 08/24 - AAI/DDD 90 - milrinone @ 0.5 for inodilation. - epinephrine (concentrated) @ 0.07 - wean q8h for Brynn > 2.2 - furosemide gtt @ 15 + diuril 1g/metolazone 10mg PRN for UOP > 100/hr - levo/vaso vs. nicard for MAP 70-90 - ASA, statin - heparin gtt on nomogram - sildenafil for pulmonary htn. Assessment & Plan (08/29/2019 2:34 AM CDT): Most recent TTE on 08/08: LV is markedly dilated. LVEF 20% with akinesis of inferior and inferolateral arroyo. RV is poorly visualized; at least mild dysfunction. Mild AR, mod-severe MR, mod TR. Heart failure consulted while patient was on cardiology firm for evaluation of advanced heart failure therapies. Underwent right heart catheterizationon 08/16 with leave in PA catheter. S/p LVAD 08/23. PA pressures post op 30s/10s. Post-procedure echo shows moderate RV dysfunction, and severe TR (cardiac index will have to be calculated using brynn's). - Pacemaker reset 08/24 - AAI/DDD 90 - milrinone @ 0.5 for inodilation. - epinephrine @ 0.07 - wean q8h for Brynn > 2.2 - furosemide gtt @ 15 + diuril 1g PRN for UOP > 100/hr - levo/vaso vs. nicard for MAP 70-90 - ASA, statin - heparin gtt on nomogram Assessment & Plan (08/28/2019 2:17 AM CDT): Most recent TTE on 08/08: LV is markedly dilated. LVEF 20% with akinesis of inferior and inferolateral arroyo. RV is poorly visualized; at least mild dysfunction. Mild AR, mod-severe MR, mod TR. Heart failure consulted while patient was on cardiology firm for evaluation of advanced heart failure therapies. Underwent right heart catheterizationon 08/16 with leave in PA catheter. S/p LVAD 08/23. PA pressures post op 30s/10s. Post-procedure echo shows moderate RV dysfunction, and severe TR (cardiac index will have to be calculated using brynn's). - Pacemaker reset 08/24 - AAI/DDD 90 - milrinone @ 0.5 for inodilation. - epinephrine @ 0.09 - wean q12h for Brynn > 2.2 - furosemide gtt + diuril for UOP > 100/hr - nicard for MAP 70-90 - ASA, statin - heparin gtt on nomogram Assessment & Plan (08/27/2019 12:38 AM CDT): Most recent TTE on 08/08: LV is markedly dilated. LVEF 20% with akinesis of inferior and inferolateral arroyo. RV is poorly visualized; at least mild dysfunction. Mild AR, mod-severe MR, mod TR. Heart failure consulted while patient was on cardiology firm for evaluation of advanced heart failure therapies. Underwent right heart catheterizationon 08/16 with leave in PA catheter. S/p LVAD 08/23. PA pressures post op 30s/10s. Post-procedure echo shows moderate RV dysfunction, and severe TR (cardiac index will have to be calculated using brynn's). - Pacemaker reset 08/24 - AAI/DDD 90 - milrinone @ 0.4 for inodilation. - epinephrine @ 0.1 - furosemide gtt + diuril for UOP < 100/hr - nicard for MAP 70-90 - ASA, statin - heparin gtt. Assessment & Plan (08/26/2019 2:39 AM CDT): Most recent TTE on 08/08: LV is markedly dilated. LVEF 20% with akinesis of inferior and inferolateral arroyo. RV is poorly visualized; at least mild dysfunction. Mild AR, mod-severe MR, mod TR. Heart failure consulted while patient was on cardiology firm for evaluation of advanced heart failure therapies. Underwent right heart catheterizationon 08/16 with leave in PA catheter. S/p LVAD 08/23. PA pressures post op 30s/10s. Post-procedure echo shows moderate RV dysfunction, and severe TR (cardiac index will have to be calculated using brynn's). - Pacemaker reset 08/24 - AAI/DDD 90 - milrinone @ 0.4 for inodilation. - epinephrine @ 0.08, wean q4h for Brynn >2.2 - bedside echo showed lower epi reduced pulse index. Bedside echo shows strained RV, with improved function on higher epi. Plan to diurese to further reduce RV load. - nicard for MAP 70-90 - ASA, statin - heparin gtt. - FBG -0.5 to -1L, prn lasix - lasix gtt, consider diurel if lasix doesn't work Assessment & Plan (08/25/2019 3:50 AM CDT): Most recent TTE on 08/08: LV is markedly dilated. LVEF 20% with akinesis of inferior and inferolateral arroyo. RV is poorly visualized; at least mild dysfunction. Mild AR, mod-severe MR, mod TR. Heart failure consulted while patient was on cardiology firm for evaluation of advanced heart failure therapies. Underwent right heart catheterizationon 08/16 with leave in PA catheter. S/p LVAD 08/23. - PA pressures post op 30s/10s - Post-procedure echo shows moderate RV dysfunction, and severe TR (cardiac index will have to be calculated using brynn's) - veletri off for extubation - milrinone @ 0.3 for inodilation. - epinephrine @ 0.1, map goal 80-90 Assessment & Plan (08/24/2019 7:24 PM CDT): Most recent TTE on 08/08: LV is markedly dilated. LVEF 20% with akinesis of inferior and inferolateral arroyo. RV is poorly visualized; at least mild dysfunction. Mild AR, mod-severe MR, mod TR. Heart failure consulted while patient was on cardiology firm for evaluation of advanced heart failure therapies. Underwent right heart catheterizationon 08/16 with leave in PA catheter. S/p LVAD 08/23. - PA pressures post op 30s/10s - Post-procedure echo shows moderate RV dysfunction, and severe TR (cardiac index will have to be calculated using brynn's) - veletri 160, monitor PA pressures, wean veletri. - milrinone for inodilation. - epinephrine, map goal 80-90 Assessment & Plan (06/09/2019 9:08 AM CDT): HFrEF with LVEF of 32% on TTE in 04/29. S/p ICD placement in 03/01. Patient presenting with several weeks of increased SOB on exertion, orthopnea. Initial NT-proBNP at OSH elevated to 2,526, trop 0.06. On exam with some OLIVIA, elevated JVP. Patient symptomatically improved since admission with decreased SOB. - At home on lasix 40 mg PO BID, metoprolol XL 12.5 mg daily, irbesartan 150 mg PO daily, aldactone 25 mg PO daily - Transitioned back to lasix 40 mg PO BID (home dose). - Continue home metoprolol, irbesartan, aldactone - Strict I&Os, daily weights - 2 g Na diet - K>4, Mg >2 Assessment & Plan (03/09/2019 9:12 AM HEAD WAITER/WAITRESS): - TTE 02/25 with severe global reduction in LV systolic function (EF 20%, previously 60%) as well as inferior/inferolateral akinesis not present on prior TTE from 08/27/2018 - Unclear whether reduced systolic function preceded cardiac arrest or is due to cardiac arrest. Suspect some degree of chronic heart failure given worsening dyspnea on exertion prior to arrest - Currently relatively euvolemic although some crackles noted on lung exam. Spot IV Lasix PRN to maintain euvolemia. - Irbesartan 300 mg daily, metoprolol 25 mg Q8h, spironolactone 25 mg daily - Received biopsy 03/05, ICD 02/26 - Appreciate HF recs Altered mental status 02/28/20192019 Assessment & Plan (03/02/2019 6:22 PM HEAD WAITER/WAITRESS): Now resolved. Patient now clearly able to communicate with team. Likely 2/2 prolonged effects of sedation - Head CT 02/28 with no acute intracranial abnormalities - Repeat blood cultures, UA, tracheal aspirate 02/28 NGTD - Insulin drip for appropriate BG control transitioned to NPH + Lispro on 03/01 - PT/OT ordered NSTEMI (non-ST elevated myoc ardial infarction) 02/25/2019 03/03/2019 Assessment & Plan (03/02/2019 6:24 PM HEAD WAITER/WAITRESS): Trop peak 0.12->0.11->0.10. Per patient's , she did not endorse CP prior to arrest. ST elevations in III, aVR, ST depressions in I, aVL, V5, V6. S/p ASA 243 in the ED, Brilinta 180 mg, and heparin bolus. LHC 02/24: L main w mild luminal irregularities; LAD w 40% lesion in prox vessel, widely patent stents in midportion, and remainder w mild-moderate diffuse d/z, small 1st diag w mild-mod diffuse d/z. LCX w mild diffuse d/z w widely patent stent in large OM branch, remainder of OM w mild diffuse d/z, and RCA widely patent w 40% lesion in mid portion, large PDA w mild luminal irregularities. - Continue home ASA 81 mg daily - Transitioned home Plavix to Brilinta 90 mg BID -> back on Plavix 75 mg daily after 300 mg on 03/02 load as she did not have new obstructive CAD on cath requiring stent - Continue home rosuvastatin 40 mg daily and fenofibrate daily - Venous and arterial R femoral sheath removed 02/26. ARDS (adult respiratory distress syndrome) 02/25/2019 03/03/2019 Assessment & Plan (03/01/2019 1:20 PM HEAD WAITER/WAITRESS): Likely due to flash pulmonary edema. Meeting criteria for severe ARDS with PaO2/FiO2 75 at PEEP 20 on arrival to the CCU. She was given 120 mg IV Lasix in the ED, 500 mg diuril in the collaborative physician, and 80 mg IV bolus on arrival to the CCU. She was briefly on a drip overnight, but this was discontinued. - Likely fluid overloaded at admission. Initially FBG net neg 2.2L on 02/24. W/ initial vent settings 20/450/50/10 - Of note, the patient is on CPAP at home for STACIE; once extubated, she will need her nightly CPAP -02/26 extubated to BiPap, weaned to home CPAP settings o/n. Diurising well but still with pulm edema on CXR this AM. -03/01: COMMUNICATIONS OPERATOR now have recommended dysphagia 2 diet and thin/regular liquids, on 1 L NC this AM -PT/OT ordered Fever 02/25/2019 03/03/2019 Assessment & Plan (03/02/2019 6:23 PM HEAD WAITER/WAITRESS): Now resolved. On night of admission, the patient was febrile to 38.6. WBC elevated to 19.8. BP stable without pressors. CXR with pulmonary edema, likely flash as prior CXR was clear. UA with negative LE, negative nitrites, reflex to culture. - Started on 1999 q24, cefepime 2000 q12, and Flagyl 500 q8 (02/24-02/26) for empiric antibiotic coverage - F/u blood cultures x2, urine culture, trach aspirate, flu swab - Repeat blood culture, UA, trach aspirate 02/28 Malignant neoplasm of centra l portion of female breast 12/12/2015 10/10/2023 Morbid obesity with BMI of 40.0-44.9, adult 05/12/2015 02/12/2023 Overview (05/17/2016): Morbid obesity with BMI of 40.0-44.9, adult Immunizations Immunization Administration Dates Next Due Influenza, Quadrivalent, Debbie l Culture-based MDCK, Antibiotic Free, Intramuscular 12/23/2018 Influenza, Quadrivalent, Hig h Dose, Preservative Free, Intrr 12/17/2021,12/01/2019 Influenza, Unspecified 10/10/2023(Deferr ed: Patient Refused),10/11/2022(Deferred: Patient Refused),02/10/2021(Deferred: Patient Refused),12/20/2020(Deferred: Patient Refused),11/06/2020(Deferred: Patient Refused),02/10/2019(Deferred: Patient Refused),12/23/2018,03/25/2018(Deferre d: Patient Refused),12/30/2016(Deferred: Patient Refused),02/12/2016(Deferred: Patient Refused) Pneumococcal Conjugate PCV 13 12/01/2019 Pneumococcal Polysaccharide PPV23 2021,12/20/2020(Deferred: Patient Refused) ZOSTER Recombinant 12/14/2019 Social History Tobacco Use Types Packs/Day Years Used Date Smoking Tobacco: Never Smokeless Tobacco: Never Tobacco Cessation:Counseling Given: Not Answered Alcohol Use Standard Drinks/Week Comments No 0 [...] often do you attend chur ch or faith services? More than 4 times per year 06/10/2019 Do you belong to any clubs o r organizations such as nondenominational groups, unions, fraternal or athletic groups, or [...] all 06/10/2019 PHQ-2 Answer Date Recorded PHQ-2 Total Score (If total score is 3 or more points, staff should administer the PHQ-9) 0 04/23/2024 Hunger Vital Sign Answer Date Recorded Within [...] medical appointments or from getting medications? No 11/11 In the past 12 months, has l ack of transportation kept you from meetings, work, or from getting things needed for daily living? No 11/29/2020 Personal Safety Answer Date Recorded Have you ever been in or are you currently in a harmful physical or emotional relationship or is someone making you feel afraid or unsafe? Denies 07/15/2023 Comments No Sex and Gender Information Value Date Recorded Sex Assigned at Not on file Legal Sex Female 11:50 PM HEAD WAITER/WAITRESS Gender Identity Female 05/25/2020 10:45 AM CDT Sexual Orientation Straight 07/07/2019 7: 18 PM CDT Last Filed Vital Signs Vital Sign Reading Time Taken Comments Blood Pressure 66/0 05/13/2024 9:23 AM CDT LVA D Pulse 46 05/13/2024 9:23 AM CDT Temperature 36.8 C (98.3 F) 04/07/2024 10:43 AM HEAD WAITER/WAITRESS Respiratory Rate 20 04/23/2024 10:19 AM CDT Oxygen Saturation 96% 05/13/2024 9:23 AM CDT Inhaled Oxygen Concentration - - Weight 122.5 kg (270 lb) 05/13/2024 9:23 AM CDT Height 167.6 cm (5' 6) 05/13/2024 9:23 AM CDT Body Mass Index 43.58 05/13/2024 9:23 AM CDT Plan of Treatment Not on file Medical Devices Implanted Type Area Molder Apprentice Device Identifier Shelf Expiration Date Model / Serial / Lot Daig [employer] [id number] Angio-Seal Evolution 6fr .035in Guidewire Bypass Tube Suture - [id number] Implanted:Qty: 1 on 08/16/2019 by Chinedu Luther MD PhD at [facility] [employer] 03/12/2020 [id number] / / [id number] Medtronic Cardiac Rhythm Mgmt [id number] Evera Mri Xt Dr Bell Physiocurve Smartshock 04f22xg 2 Chamber - [id number] - [id number] Implanted:Qty: 1 on 03/08/2019 by Mt Collins DO at [facility] ICD Left: Heart Medtronic Inc 07/07/2020 [id number] / [id number] / Description:VF: 200bpm ATP d uring charginJ X 6 VT monitor: [id number] Thoratec Corpheartmate 3 Left Ventricular Device Blood Pump - [id number] - [id number] Implanted:Qty: 1 on 08/24/2019 by Josette Ramirez MD at [facility] LVAD Left: Heart Thoratec Francisco 04/06/2022 [id number] / [id number] / Thoratec Francisco [id number] Heartmate 3 Kit Implant Sterile Latex Free - [id number] Implanted:Qty: 1 on 08/24/2019 by Josette Ramirez MD at [facility] LVAD Left: Heart [employer]atec Francisco 03/25/2022 [id number] / / [id number], MLP-0209 02 [id number] Thoratec Corpgraft Outflow Lvad Heartmate 3 W-Bend Relief - [id number] Implanted:Qty: 1 on 08/24/2019 by Josette Ramirez MD at [facility] LVAD Left: Heart Thoratec Francisco 05/20/2021 [id number] / / [id number] Medtronic Cardiac Rhythm Mgmt [id number] Sprint Quattro Secure S 55cm Df-4 Tripolar Screw Defibrillator - [id number] - [id number] Implanted:Qty: 1 on 03/08/2019 by Rubén Davalos MD at [facility] Lead Left: Heart Medtronic Inc 11/23/2020 [id number] / [id number] / Medtronic Cardiac Rhythm Mgmt 5076-45 Capsurefix Novus 6.2fr 2mm 45cm Bipolar Screw In Implantable - [id number] - [id number] Implanted:Qty: 1 on 03/08/2019 by Mt Collins DO at [facility] Lead Left: Heart Medtronic Inc 01/22/2021 5076-45 / [id number] / White Vascular [id number] System Coronary Stent Xience Margareth Everolimus L15 Mm Od3.25 Mm Rapid Exchange - [id number] - [id number] Implanted:Qty: 1 on 09/15/2018 by Ray Mullins MD at [facility] Stent N/A: Coronary [employer] 06/09/2019 [id number] / [id number] / [id number] White Vascular [id number] System Coronary Stent Xience Margareth Everolimus L8 Mm Od3.5 Mm Rapid Exchange - [id number] - [id number] Implanted:Qty: 1 on 09/15/2018 by Ray Mullins MD at [facility] Stent N/A: Coronary [employer] 12/14/2018 [id number] / [id number] / [id number] As[employer]ism [id number] Cath Iab 6in 8fr 17.4mm Uli Statlock 2 Device Insertion Kit - [id number] - [id number] Implanted:Qty: 1 on 08/17/2019 by Richie Zapien MD at [facility] [employer] 03/01/2022 0684-00- [id number] / [id number] / [id number] Bard Peripheral Vascular Ultraclip Bard 17ga 10cm 2 Trigger Permanent Ultrasound [id number] - [id number] Implanted:Qty: 1 on 12/08/2023 by Aime Schaefer DO at [facility] Right: Breast Bard Peripheral Vascular [id number] / / Procedures Procedure Name Priority Date/Time Associated Diagnosis Comments DIAGNOSTIC MAMMOGRAM LEFT W DARRIUS Schedule Routine, Read Routine (OP Routine) 06/10/2024 11:47 AM CDT Breast calcification seen on mammogram EGFR Routine 06/07/2024 11:39 AM CDT LVAD (left ventricular assist device) present (HCC) DIFFERENTIAL AUTO Routine 06/07/2024 11:39 AM CDT LVAD (left ventricular assist device) present (HCC) CBC WITH AUTO DIFFERENTIAL Routine 06/07/2024 11:39 AM CDT LVAD (left ventricular assist device) present (HCC) COMPREHENSIVE METABOLIC PANEL Routine 06/07/2024 11:39 AM CDT LVAD (left ventricular assist device) present (HCC) PROTIME-INR Routine 06/07/2024 11:39 AM CDT LVAD (left ventricular assist device) present (HCC) LACTATE DEHYDROGENASE Routine 06/07/2024 11:39 AM CDT LVAD (left ventricular assist device) present (HCC) EGFR Routine 05/13/2024 5:34 PM CDT LVAD (left ventricular assist device) present (HCC) DIFFERENTIAL AUTO Routine 05/13/2024 5:3 4 PM CDT LVAD (left ventricular assist device) present (HCC) LACTATE DEHYDROGENASE Routine 05/13/2024 5:34 PM CDT LVAD (left ventricular assist device) present (HCC) PROTIME-INR Routine 05/13/2024 5:34 PM CDT LVAD (left ventricular assist device) present (HCC) COMPREHENSIVE METABOLIC PANEL Routine 05/13/2024 5:34 PM CDT LVAD (left ventricular assist device) present (HCC) CBC WITH AUTO DIFFERENTIAL Routine 05/13/2024 5:34 PM CDT LVAD (left ventricular assist device) present (HCC) EGFR Routine 04/28/2024 10:57 AM CDT LVAD (left ventricular assist device) present (HCC) DIFFERENTIAL AUTO Routine 04/28/2024 10:57 AM CDT LVAD (left ventricular assist device) present (HCC) CBC WITH AUTO DIFFERENTIAL Routine 04/28/2024 10:57 AM CDT LVAD (left ventricular assist device) present (HCC) COMPREHENSIVE METABOLIC PANEL Routine 04/28/2024 10:57 AM CDT LVAD (left ventricular assist device) present (HCC) PROTIME-INR Routine 04/28/2024 10:57 AM CDT LVAD (left ventricular assist device) present (HCC) LACTATE DEHYDROGENASE Routine 04/28/2024 10:57 AM CDT LVAD (left ventricular assist device) present (HCC) POCT HEMOGLOBIN A1C Routine 04/07/2024 10:48 AM HEAD WAITER/WAITRESS Type 2 diabetes mellitus with other neurologic complication, with long-term current use of insulin (HCC) DIAGNOSTIC MAMMOGRAM BILATERAL W DARRIUS Schedule Routine, Read Routine (OP Routine) 12/01/2023 10:07 AM CDT Abnormality of both breasts on screening mammogram LIPID PANEL Routine 08/11/2023 11:04 AM CDT Hyperlipidemia, unspecified hyperlipidemia type DIABETES EYE EXAM Routine 03/12/2023 DEXA AXIAL SKELETON BONE DENSITY 1 OR MORE SITES Schedule Routine, Read Routine (OP Routine) 09/25/2022 2:02 PM CDT History of healed fragility fracture ALBUMIN CREATININE RATIO, URINE Routine 05/27/2022 4:05 PM CDT HEPATITIS PANEL, ACUTE Routine 12/23/2019 4:10 PM HEAD WAITER/WAITRESS Thrombocytopenia, unspecified DIABETES FOOT EXAM Routine 01/29/2017 COLONOSCOPY REPORT 11/10/2014 from Last 3 Months or Most Recently Relevant to Health Maintenance Results * Diagnostic Mammogram Left W Darrius (06/10/2024 11:47 AM CDT) Anatomical Region Laterality Modality Breast Left Mammography 06/10/2024 11:5 0 AM CDT Impressions 06/10/2024 12:46 PM CDT Unchanged diffuse coarse heterogeneous calcifications in the LEFT breast. Findings are probably benign. OVERALL FINAL ASSESSMENT: BI-RADS Category 3: Probably Benign. RECOMMENDATION: Recommend follow-up diagnostic breast imaging in 6 months with BILATERAL diagnostic mammogram (patient due for annual mammography at that time). Dictated by: Preston Gardner MD The radiology attending physician has personally reviewed this study, and had reviewed and/or edited this written report and agrees with it. Electronically signed by: Carina Weston M.D. Narrative 06/10/2024 12:46 PM CDT EXAMINATION: LEFT UNILATERAL DIGITAL DIAGNOSTIC MAMMOGRAM AND DIGITAL BREAST TOMOSYNTHESIS HISTORY: 69-year-old woman presenting for follow-up of calcifications in the LEFT breast. COMPARISON: Multiple mammograms, most recently dated 12/01/2023. TECHNIQUE: Full field digital mammographic views of the LEFT breast were performed, including computer aided detection (CAD) and digital breast tomosynthesis (DBT). BREAST PARENCHYMAL COMPOSITION: There are scattered areas of fibroglandular density. MAMMOGRAM FINDINGS: There are diffuse coarse heterogeneous and dystrophic calcifications in the LEFT breast, predominantly in the lower and central regions. There has not been a significant change in the size, number, or distribution of these calcifications. No new suspicious mass or architectural distortion in the LEFT breast. Procedure Note Carina Weston MD - 06/10/2024 EXAMINATION: LEFT UNILATERAL DIGITAL DIAGNOSTIC MAMMOGRAM AND DIGITAL BREAST TOMOSYNTHESIS HISTORY: 69-year-old woman presenting for follow-up of calcifications in the LEFT breast. COMPARISON: Multiple mammograms, most recently dated 12/01/2023. TECHNIQUE: Full field digital mammographic views of the LEFT breast were performed, including computer aided detection (CAD) and digital breast tomosynthesis (DBT). BREAST PARENCHYMAL COMPOSITION: There are scattered areas of fibroglandular density. MAMMOGRAM FINDINGS: There are diffuse coarse heterogeneous and dystrophic calcifications in the LEFT breast, predominantly in the lower and central regions. There has not been a significant change in the size, number, or distribution of these calcifications. No new suspicious mass or architectural distortion in the LEFT breast. IMPRESSION: Unchanged diffuse coarse heterogeneous calcifications in the LEFT breast. Findings are probably benign. OVERALL FINAL ASSESSMENT: BI-RADS Category 3: Probably Benign. RECOMMENDATION: Recommend follow-up diagnostic breast imaging in 6 months with BILATERAL diagnostic mammogram (patient due for annual mammography at that time). Dictated by: Preston Gardner MD The radiology attending physician has personally reviewed this study, and had reviewed and/or edited this written report and agrees with it. Electronically signed by: Carina Weston M.D. Scotty Oneil MD IMG MAMMO PROCEDURES Eda l Result * (ABNORMAL) eGFR (06/07/2024 11:39 AM CDT) eGFR 31(L) >=60 mL/min/1. 73 m2 Comment: Interpretive Data Reference Interval Normal >/= 90 mL/min/1.73m2 Mildly decreased* 60 - 89 mL/min/1.73m2 Mildly to moderately decreased 45 - 59 mL/min/1.73m2 Moderately to severely decreased 30 - 44 mL/min/1.73m2 Severely decreased 15 - 29 mL/min/1.73m2 Kidney Failure < 15 mL/min/1.73m2 *Relative to young adult level Estimated glomerular filtration rate is determined by the 2020 CKD-EPI equation recommended by the National Kidney Foundation (A Unifying Approach to GFR Estimation: Recommendations of the NKF-ASK Task Force on Reassessing the Inclusion of Race in Diagnosing Kidney Disease, JASN 2020). The CKD-EPI equation should not be used for patients with unstable renal function and has not been validated in children and those over 70. Current interpretive data was last reviewed 2020. Testing performed by: [address], [address] Blood 06/07/2024 11:3 9 AM CDT 06/07/2024 6:32 PM CDT us Rudolph Zhang MD LAB BLOOD ORDERABLES Final R esult [facility] ([place]) [facility] Department [place] [address] * (ABNORMAL) Differential, auto (06/07/2024 11:39 AM CDT) Neutrophil abs 5.44 1.50 - 6.50 K/cumm Comment:Testing performed by : [address] [address] Imm gran abs 0.02 0.00 - 0.10 K/cumm [facility] ([place]) Comment:Testing performed by : [address], [address] Lymphocyte abs 2.98 0.80 - 3.30 K/cumm [facility] (FCO) Comment:Testing performed by : [address], [address] Monocyte abs 1.06(H) 0.20 - 0.80 K/cumm [facility] ([facility]) Comment:Testing performed by : [address], [address] Eosinophil abs 0.18 0.00 - 0.50 K/cumm [facility] ([facility]) Comment:Testing performed by : [address], [place]., [address] Basophil abs 0.08 0.00 - 0.10 K/cumm [facility] ([facility]) Comment:Testing performed by : [address] [address] Neutrophil pct 55.8 % [facility] (F[facility]) Comment: Interpretive Data Percent cell count reference ranges are not reported, since discordance with absolute values may lead to misinterpretation of CBC data. Current Interpretive Data was last revised on 2017. Testing performed by: [facility], [address] [place] [address]., [address] Imm gran pct 0.2 % [facility] ([facility]) Comment: Interpretive Data Percent cell count reference ranges are not reported, since discordance with absolute values may lead to misinterpretation of CBC data. Current Interpretive Data was last revised on 2017. Testing performed by: [address] [address] Lymphocyte pct 30.5 % [facility] ([facility]) Comment: Interpretive Data Percent cell count reference ranges are not reported, since discordance with absolute values may lead to misinterpretation of CBC data. Current Interpretive Data was last revised on 2017. Testing performed by: [address] [address] Monocyte pct 10.9 % [facility] ([facility]) Comment: Interpretive Data Percent cell count reference ranges are not reported, since discordance with absolute values may lead to misinterpretation of CBC data. Current Interpretive Data was last revised on 2017. Testing performed by: [address] [address] Eosinophil pct 1.8 % [facility] ([facility]) Comment: Interpretive Data Percent cell count reference ranges are not reported, since discordance with absolute values may lead to misinterpretation of CBC data. Current Interpretive Data was last revised on 2017. Testing performed by: [address] [address] Basophil pct 0.8 % [facility] ([facility]) Comment: Interpretive Data Percent cell count reference ranges are not reported, since discordance with absolute values may lead to misinterpretation of CBC data. Current Interpretive Data was last revised on 2017. Testing performed by: [facility], [address] [place] [address]., [address] Blood 06/07/2024 11:3 9 AM CDT 06/07/2024 6:10 PM CDT us Rudolph Zhang MD LAB BLOOD ORDERABLES Final R esult [facility] ([facility]) [facility] Department [place] [address] * (ABNORMAL) CBC with auto differential (06/07/2024 11:39 AM CDT) WBC 9.76 3.80 - 9.90 K/cumm Comment:Testing performed by : [address], [address] Hgb 16.1(H) 11.9 - 15.5 g/dL [facility] ([facility]) Comment:Testing performed by : [address], [address] Hct 51.8(H) 35.6 - 45.5 % [facility] ([facility]) Comment:Testing performed by : [address], [address] Plt 184 150 - 400 K/cumm [facility] ([facility]) Comment:Testing performed by : [address], [address] MPV 12.0 9.1 - 12.3 fL [facility] ([facility]) Comment:Testing performed by : [address], [address] RBC 5.38(H) 3.90 - 5.20 M/cumm [facility] ([facility]) Comment:Testing performed by : [address], [address] MCV 96.3 81.3 - 96.4 fL [facility] (CFO) Comment:Testing performed by : [address], [address] MCH 29.9 27.1 - 33.3 pg [facility] ([facility]) Comment:Testing performed by : [facility], [address] [place] [address]., [address] MCHC 31.1(L) 32.3 - 35.7 g/dL [facility] (F[facility]) Comment:Testing performed by : [address], [address] RDW CV 17.3(H) 11.1 - 14.9 % [facility] ([facility]) Comment:Testing performed by : [facility], [address] [place] [address], [address] RDW SD 61.1(H) 35.7 - 48.1 fL [facility] ([facility]) Comment:Testing performed by : [address], [address] NRBC abs 0.00 0.00 - 0.01 K/cumm [facility] (F[facility]) Comment:Testing performed by : [address], [address] Blood 06/07/2024 11:3 9 AM CDT 06/07/2024 6:10 PM CDT us Rudolph Zhang MD LAB BLOOD ORDERABLES Final R esult [facility] ([place]) [facility] Department [place] [address] * (ABNORMAL) Protime-INR (06/07/2024 11:39 AM CDT) PT 23.1(H) 9.7 - 13.0 sec Comment:Testing performed by : [address], [address] INR 2.11(H) 0.90 - 1.20 [facility] (F[facility]) Comment: Interpretive data Oral anticoagulant therapeutic ranges: Venous thromboembolism prophylaxis or treatment: 2.0-3.0 CARDIOLOGY Standard range: 2.0-3.0 High-intensity range: 2.5-3.5 Refer to indication-specific guidelines for appropriate target ranges for prosthetic heart valve replacement. Current interpretive data was last revised on 2019. Testing performed by: [facility], [address] [place] [address]., [address] Blood 06/07/2024 11:3 9 AM CDT 06/07/2024 6:10 PM CDT Rudolph Zhang MD LAB BLOOD ORDERABLES Final R esult Performing Organization Address City/[facility] Co de Phone Number [facility] (F[facility]) [facility] [place] [address] * (ABNORMAL) Lactate dehydrogenase (LD) (06/07/2024 11:39 AM CDT) Lactate dehydrogenase (LDH) 296(H) 100 - 250 Units/L Comment:Testing performed by : [facility], [address] [place] [address], [address] Blood 06/07/2024 11:3 9 AM CDT 06/07/2024 6:10 PM CDT Rudolph Zhang MD LAB BLOOD ORDERABLES Final R esult Performing Organization Address City/[facility] Co de Phone Number [facility] ([facility]) [address] [place] [address] [place] [address] * (ABNORMAL) Comprehensive metabolic panel (06/07/2024 11:39 AM CDT) Sodium 138 135 - 145 mmol/L Comment:Testing performed by : [facility], [address] [place] [address]., [address] Potassium, pl 4.3 3.3 - 4.9 mmol/L [facility] ([facility]) Comment:Testing performed by : [facility], [address] [place] [address]., [address] Chloride 95(L) 97 - 110 mmol/L [facility] ([facility]) Comment:Testing performed by : [facility], [address] [place] [address]., [address] CO2 27 22 - 32 mmol/L [facility] ([facility]) Comment:Testing performed by : [facility], [address] [place] [address], [address] Anion gap 16(H) 2 - 15 mmol/L [facility] ([facility]) Comment:Testing performed by : [address] [address] BUN 30(H) 6 - 25 mg/dL [facility] ([facility]) Comment:Testing performed by : [address] [address] Creatinine 1.73(H) 0.60 - 1.10 mg/dL [facility] ([facility]) Comment: Icteric sample, test results may be affected. Testing performed by: [address], [address] Glucose 129 70 - 199 mg/dL [facility] ([facility]) Comment: Interpretive Data Fasting glucose >/= 126 mg/dl is diagnostic for diabetes. Fasting is defined as no caloric intake for at least 8 hours. Fasting glucose between 100 mg/dl to 125 mg/dl is diagnostic of prediabetes. In a patient with classic symptoms of hyperglycemia or hyperglycemic crisis, a random glucose >/= 200 mg/dl is diagnostic for diabetes. In the absence of unequivocal hyperglycemia, results should be confirmed by repeat testing. The classification and Diagnosis of Diabetes Diabetes Care 202; 46: S19-S40. Current interpretive data was last revised 2022. Testing performed by: [address] [address] Calcium 10.1 8.5 - 10.3 mg/dL [facility] ([facility]) Comment:Testing performed by : [address] [address] Bilirubin, total 1.7(H) 0.1 - 1.2 mg/dL [facility] ([facility]) Comment:Testing performed by : [address] [address] Protein, pl 7.7 6.5 - 8.5 g/dL [facility] ([facility]) Comment:Testing performed by : [address] [address] Albumin 4.3 3.5 - 5.0 g/dL [facility] ([facility]) Comment:Testing performed by : [address], [address] Alk phos 121 40 - 130 Units/L [facility] ([facility]) Comment:Testing performed by : [facility], [address] [place] [address]., [address] ALT 26 7 - 45 Units/L [facility] ([facility]) Comment:Testing performed by : [facility], [address] [place] [address]., [address] AST 41 10 - 45 Units/L [facility] ([facility]) Comment:Testing performed by : [facility], [address] [place] [address]., [address] Blood 06/07/2024 11:3 9 AM CDT 06/07/2024 6:10 PM CDT us Rudolph Zhang MD LAB BLOOD ORDERABLES Final R esult TOY FIG[facility]EREDO (FCO) 1 [facility] [place] [address] * (ABNORMAL) eGFR (05/13/2024 5:34 PM CDT) eGFR 30(L) >=60 mL/min/1. 73 m2 Comment: Interpretive Data Reference Interval Normal >/= 90 mL/min/1.73m2 Mildly decreased* 60 - 89 mL/min/1.73m2 Mildly to moderately decreased 45 - 59 mL/min/1.73m2 Moderately to severely decreased 30 - 44 mL/min/1.73m2 Severely decreased 15 - 29 mL/min/1.73m2 Kidney Failure < 15 mL/min/1.73m2 *Relative to young adult level Estimated glomerular filtration rate is determined by the 2020 CKD-EPI equation recommended by the National Kidney Foundation (A Unifying Approach to GFR Estimation: Recommendations of the NKF-ASK Task Force on Reassessing the Inclusion of Race in Diagnosing Kidney Disease, JASN 202). The CKD-EPI equation should not be used for patients with unstable renal function and has not been validated in children and those over 70. Current interpretive data was last reviewed 2020. Testing performed by: [facility], [address] [place] [address]., [address] Blood 05/13/2024 5:34 PM CDT 05/13/2024 5:41 PM CDT us Rudolph Zhang MD LAB BLOOD ORDERABLES Final R esult TOY [facility] (FCO) 1 [facility] Department [place] [address] * (ABNORMAL) Differential, auto (05/13/2024 5:34 PM CDT) Neutrophil abs 7.12(H) 1.50 - 6.50 K/cumm Comment:Testing performed by : [facility], [address] [place] [address]., [address] Imm gran abs 0.03 0.00 - 0.10 K/cumm [facility] ([facility]) Comment:Testing performed by : [facility], [address] [place] [address]., [address] Lymphocyte abs 2.87 0.80 - 3.30 K/cumm [facility] ([facility]) Comment:Testing performed by : [facility], [address] [place] [address]., [address] Monocyte abs 1.27(H) 0.20 - 0.80 K/cumm [facility] ([facility]) Comment:Testing performed by : [facility], [address] [place] [address]., [address] Eosinophil abs 0.19 0.00 - 0.50 K/cumm [facility] ([facility]) Comment:Testing performed by : [address] [address] Basophil abs 0.08 0.00 - 0.10 K/cumm [facility] ([facility]) Comment:Testing performed by : [address] [address] Neutrophil pct 61.6 % [facility] ([facility]) Comment: Interpretive Data Percent cell count reference ranges are not reported, since discordance with absolute values may lead to misinterpretation of CBC data. Current Interpretive Data was last revised on 2017. Testing performed by: [facility], [address] [place] [address], [address] Imm gran pct 0.3 % [facility] ([facility]) Comment: Interpretive Data Percent cell count reference ranges are not reported, since discordance with absolute values may lead to misinterpretation of CBC data. Current Interpretive Data was last revised on 2017. Testing performed by: [facility], [address] [place] [address]., [address] Lymphocyte pct 24.8 % [facility] ([facility]) Comment: Interpretive Data Percent cell count reference ranges are not reported, since discordance with absolute values may lead to misinterpretation of CBC data. Current Interpretive Data was last revised on 2017. Testing performed by: [facility], [address] [place] [address]., [address] Monocyte pct 11.0 % [facility] ([facility]) Comment: Interpretive Data Percent cell count reference ranges are not reported, since discordance with absolute values may lead to misinterpretation of CBC data. Current Interpretive Data was last revised on 2017. Testing performed by: [facility], [address] [place] [address]., [address] Eosinophil pct 1.6 % [facility] ([facility]) Comment: Interpretive Data Percent cell count reference ranges are not reported, since discordance with absolute values may lead to misinterpretation of CBC data. Current Interpretive Data was last revised on 2017. Testing performed by: [address] [address] Basophil pct 0.7 % [facility] ([facility]) Comment: Interpretive Data Percent cell count reference ranges are not reported, since discordance with absolute values may lead to misinterpretation of CBC data. Current Interpretive Data was last revised on 2017. Testing performed by: [address] [address] Blood 05/13/2024 5:34 PM CDT 05/13/2024 5:34 PM CDT us Rudolph Zhang MD LAB BLOOD ORDERABLES Final R esult CONIGHADA FIGUEREDO (FCO) 1 [facility] Department [place] [address] * (ABNORMAL) CBC with auto differential (05/13/2024 5:34 PM CDT) WBC 11.56(H) 3.80 - 9.90 K/cumm Comment:Testing performed by : [facility], [address] [place] [address], [address] Hgb 16.0(H) 11.9 - 15.5 g/dL [facility] ([facility]) Comment:Testing performed by : [facility], [address] [place] [address], [address] Hct 51.9(H) 35.6 - 45.5 % [facility] ([facility]) Comment:Testing performed by : [facility], [address] [place] [address], [address] Plt 168 150 - 400 K/cumm [facility] ([facility]) Comment:Testing performed by : [address], [address] MPV 12.2 9.1 - 12.3 fL [facility] ([facility]) Comment:Testing performed by : [address], [address] RBC 5.41(H) 3.90 - 5.20 M/cumm [facility] ([facility]) Comment:Testing performed by : [address], [address] MCV 95.9 81.3 - 96.4 fL [facility] ([facility]) Comment:Testing performed by : [address], [address] MCH 29.6 27.1 - 33.3 pg [facility] ([facility]) Comment:Testing performed by : [address], [address] MCHC 30.8(L) 32.3 - 35.7 g/dL [facility] ([facility]) Comment:Testing performed by : [address], [address] RDW CV 18.2(H) 11.1 - 14.9 % [facility] ([facility]) Comment:Testing performed by : [address], [address] RDW SD 62.0(H) 35.7 - 48.1 fL [facility] ([facility]) Comment:Testing performed by : [address], [address] NRBC abs 0.02(H) 0.00 - 0.01 K/cumm TOY [facility] (FCO) Comment:Testing performed by : [facility], [address] [place] [address], [address] Blood 05/13/2024 5:34 PM CDT 05/13/2024 5:34 PM CDT us Rudolph Zhang MD LAB BLOOD ORDERABLES Final R esult TOY [facility]ER[facility] (FCO) 1 [facility] [place] [address] * (ABNORMAL) Protime-INR (05/13/2024 5:34 PM CDT) PT 27.3(H) 9.7 - 13.0 sec Comment:Testing performed by : [facility], [address] [place] [address], [address] INR 2.48(H) 0.90 - 1.20 TOY [facility] (FCO) Comment: Interpretive data Oral anticoagulant therapeutic ranges: Venous thromboembolism prophylaxis or treatment: 2.0-3.0 CARDIOLOGY Standard range: 2.0-3.0 High-intensity range: 2.5-3.5 Refer to indication-specific guidelines for appropriate target ranges for prosthetic heart valve replacement. Current interpretive data was last revised on 2019. Testing performed by: [facility], [address] [place] [address], [address] Blood 05/13/2024 5:34 PM CDT 05/13/2024 5:34 PM CDT us Rudolph Zhang MD LAB BLOOD ORDERABLES Final R esult TOY [facility] ([place]) 1 [facility] [place] [address] * (ABNORMAL) Lactate dehydrogenase (LD) (05/13/2024 5:34 PM CDT) Lactate dehydrogenase (LDH) 358(H) 100 - 250 Units/L Comment: Hemolysis present. Results may be affected. Testing performed by: [facility], [address] [place] [address]., [address] Blood 05/13/2024 5:34 PM CDT 05/13/2024 5:34 PM CDT us Rudolph Zhang MD LAB BLOOD ORDERABLES Final R esult TOY [facility] (FCO) 1 [facility] Department [place] [address] * (ABNORMAL) Comprehensive metabolic panel (05/13/2024 5:34 PM CDT) Sodium 135 135 - 145 mmol/L Comment:Testing performed by : [address], [address] Potassium, pl 4.9 3.3 - 4.9 mmol/L [facility] (FCO) Comment:Testing performed by : [facility], [address] [place] [address], [address] Chloride 92(L) 97 - 110 mmol/L [facility] ([facility]) Comment:Testing performed by : [facility], [address] [place] [address], [address] CO2 27 22 - 32 mmol/L [facility] ([facility]) Comment:Testing performed by : [address] [address] Anion gap 16(H) 2 - 15 mmol/L [facility] (FCO) Comment:Testing performed by : [address] [address] BUN 38(H) 6 - 25 mg/dL [facility] ([facility]) Comment:Testing performed by : [address], [address] Creatinine 1.82(H) 0.60 - 1.10 mg/dL [facility] ([facility]) Comment: Icteric sample, test results may be affected. Testing performed by: [facility], [address] [place] [address], [address] Glucose 170 70 - 199 mg/dL TO[facility] (FCO) Comment: Interpretive Data Fasting glucose >/= 126 mg/dl is diagnostic for diabetes. Fasting is defined as no caloric intake for at least 8 hours. Fasting glucose between 100 mg/dl to 125 mg/dl is diagnostic of prediabetes. In a patient with classic symptoms of hyperglycemia or hyperglycemic crisis, a random glucose >/= 200 mg/dl is diagnostic for diabetes. In the absence of unequivocal hyperglycemia, results should be confirmed by repeat testing. The classification and Diagnosis of Diabetes Diabetes Care 2021; 46: S19-S40. Current interpretive data was last revised 2022. Testing performed by: [facility], [address] [place] [address]., [address] Calcium 10.1 8.5 - 10.3 mg/dL [facility] ([facility]) Comment:Testing performed by : [address] [address] Bilirubin, total 1.9(H) 0.1 - 1.2 mg/dL [facility] ([facility]) Comment:Testing performed by : [address], [address] Protein, pl 7.8 6.5 - 8.5 g/dL [facility] ([facility]) Comment:Testing performed by : [address], [address] Albumin 4.4 3.5 - 5.0 g/dL [facility] ([facility]) Comment:Testing performed by : [address] [address] Alk phos 145(H) 40 - 130 Units/L [facility] ([facility]) Comment:Testing performed by : [address], [address] ALT 33 7 - 45 Units/L [facility] ([facility]) Comment:Testing performed by : [address], [address] AST 42 10 - 45 Units/L [facility] ([facility]) Comment:Testing performed by : [address], [address] Blood 05/13/2024 5:34 PM CDT 05/13/2024 5:34 PM CDT Rudolph Zhang MD LAB BLOOD ORDERABLES Final R esult Performing Organization Address City/[facility]/ZIP Co de Phone Number TOY FIGUEREDO (SHAWN[place]) 1 [facility] [employer] [place] [place] [employer] [place] [address] * (ABNORMAL) eGFR (04/28/2024 10:57 AM CDT) eGFR 40(L) >=60 mL/min/1. 73 m2 Comment: Interpretive Data Reference Interval Normal >/= 90 mL/min/1.73m2 Mildly decreased* 60 - 89 mL/min/1.73m2 Mildly to moderately decreased 45 - 59 mL/min/1.73m2 Moderately to severely decreased 30 - 44 mL/min/1.73m2 Severely decreased 15 - 29 mL/min/1.73m2 Kidney Failure < 15 mL/min/1.73m2 *Relative to young adult level Estimated glomerular filtration rate is determined by the 2020 CKD-EPI equation recommended by the National Kidney Foundation (A Unifying Approach to GFR Estimation: Recommendations of the NKF-ASK Task Force on Reassessing the Inclusion of Race in Diagnosing Kidney Disease, JASN 2020). The CKD-EPI equation should not be used for patients with unstable renal function and has not been validated in children and those over 70. Current interpretive data was last reviewed 2020. Testing performed by: [facility], [address] [place] [address]., [address] Blood 04/28/2024 10:5 7 AM CDT 04/28/2024 7:07 PM CDT us Rudolph Zhang MD LAB BLOOD ORDERABLES Final R esult TOY [facility] ([place]) 1 [facility] [place] [address] * (ABNORMAL) Differential, auto (04/28/2024 10:57 AM CDT) Neutrophil abs 6.1 1.5 - 6.5 K/cumm Comment:Testing performed by : [address] [address] Imm gran abs 0.0 0.0 - 0.1 K/cumm [facility] ([facility]) Comment:Testing performed by : [facility], [address] [place] [address]., [address] Lymphocyte abs 2.8 0.8 - 3.3 K/cumm [facility] ([facility]) Comment:Testing performed by : [facility], [address] [place] [address]., [address] Monocyte abs 1.2(H) 0.2 - 0.8 K/cumm [facility] ([facility]) Comment:Testing performed by : [facility], [address] [place] [address]., [address] Eosinophil abs 0.3 0.0 - 0.5 K/cumm [facility] ([facility]) Comment:Testing performed by : [facility], [address] [place] [address]., [address] Basophil abs 0.1 0.0 - 0.1 K/cumm [facility] ([facility]) Comment:Testing performed by : [facility], [address] [place] [address]., [address] Neutrophil pct 58.6 % [facility] ([facility]) Comment: Interpretive Data Percent cell count reference ranges are not reported, since discordance with absolute values may lead to misinterpretation of CBC data. Current Interpretive Data was last revised on 2017. Testing performed by: [facility], [address] [place] [address]., [address] Imm gran pct 0.3 % [facility] ([facility]) Comment: Interpretive Data Percent cell count reference ranges are not reported, since discordance with absolute values may lead to misinterpretation of CBC data. Current Interpretive Data was last revised on 2017. Testing performed by: [facility], [address] [place] [address]., [address] Lymphocyte pct 26.6 % [facility] ([facility]) Comment: Interpretive Data Percent cell count reference ranges are not reported, since discordance with absolute values may lead to misinterpretation of CBC data. Current Interpretive Data was last revised on 2017. Testing performed by: [address] [address] Monocyte pct 11.4 % [facility] ([facility]) Comment: Interpretive Data Percent cell count reference ranges are not reported, since discordance with absolute values may lead to misinterpretation of CBC data. Current Interpretive Data was last revised on 2017. Testing performed by: [facility], [address] [place] [address]., [address] Eosinophil pct 2.4 % SHAVONNE FIGUEREDO (FCO) Comment: Interpretive Data Percent cell count reference ranges are not reported, since discordance with absolute values may lead to misinterpretation of CBC data. Current Interpretive Data was last revised on 2017. Testing performed by: [address], [address] Basophil pct 0.7 % TO[facility] (FCO) Comment: Interpretive Data Percent cell count reference ranges are not reported, since discordance with absolute values may lead to misinterpretation of CBC data. Current Interpretive Data was last revised on 2017. Testing performed by: [address], [address] Blood 04/28/2024 10:5 7 AM CDT 04/28/2024 6:20 PM CDT us Rudolph Zhang MD LAB BLOOD ORDERABLES Final R esult [facility] (FCO) 1 [facility] Department [place] [address] * (ABNORMAL) CBC with auto differential (04/28/2024 10:57 AM CDT) WBC 10.4(H) 3.8 - 9.9 K/cumm Comment:Testing performed by : [address] [address] Hgb 15.4 11.9 - 15.5 g/dL [facility] (FCO) Comment:Testing performed by : [address] [address] Hct 51.6(H) 35.6 - 45.5 % [facility] (FCO) Comment:Testing performed by : [address], [address] Plt 197 150 - 400 K/cumm TOY [facility] (FCO) Comment:Testing performed by : [address], [address] MPV 12.1 9.1 - 12.3 fL [facility] ([facility]) Comment:Testing performed by : [address], [address] RBC 5.19 3.90 - 5.20 M/cumm [facility] ([facility]) Comment:Testing performed by : [address], [address] MCV 99.4(H) 81.3 - 96.4 fL [facility] ([facility]) Comment:Testing performed by : [facility], [address] [place] [address], [address] MCH 29.7 27.1 - 33.3 pg [facility] ([facility]) Comment:Testing performed by : [address], [address] MCHC 29.8(L) 32.3 - 35.7 g/dL [facility] ([facility]) Comment:Testing performed by : [address], [address] RDW CV 17.5(H) 11.1 - 14.9 % [facility] ([facility]) Comment:Testing performed by : [address], [address] RDW SD 63.6(H) 35.7 - 48.1 fL [facility] ([facility]) Comment:Testing performed by : [address], [address] NRBC abs 0.00 0.00 - 0.01 K/cumm [facility] ([facility]) Comment:Testing performed by : [address], [address] Blood 04/28/2024 10:5 7 AM CDT 04/28/2024 6:20 PM CDT us Rudolph Zhang MD LAB BLOOD ORDERABLES Final R esult [facility] ([facility]) 1 [facility] [place] [address] * (ABNORMAL) Protime-INR (04/28/2024 10:57 AM CDT) PT 24.9(H) 9.7 - 13.0 sec Comment:Testing performed by : [address], [address] INR 2.27(H) 0.90 - 1.20 TOY [facility]ER[facility] (FCO) Comment: Interpretive data Oral anticoagulant therapeutic ranges: Venous thromboembolism prophylaxis or treatment: 2.0-3.0 CARDIOLOGY Standard range: 2.0-3.0 High-intensity range: 2.5-3.5 Refer to indication-specific guidelines for appropriate target ranges for prosthetic heart valve replacement. Current interpretive data was last revised on 2019. Testing performed by: [address], [address] Blood 04/28/2024 10:5 7 AM CDT 04/28/2024 6:20 PM CDT Rudolph Zhang MD LAB BLOOD ORDERABLES Final R esult Performing Organization Address City/[facility]/ZIP Co de Phone Number TOY [facility]ER[facility]O (FCO) 1 [facility] [employer] [place] [address] * (ABNORMAL) Lactate dehydrogenase (LD) (04/28/2024 10:57 AM CDT) Lactate dehydrogenase (LDH) 330(H) 100 - 250 Units/L Comment: Hemolysis present. Results may be affected. Testing performed by: [address], [address] Blood 04/28/2024 10:5 7 AM CDT 04/28/2024 6:20 PM CDT Rudolph Zhang MD LAB BLOOD ORDERABLES Final R esult TOY [facility] (FCO) 1 [facility] [place] [employer] [place] [address] * (ABNORMAL) Comprehensive metabolic panel (04/28/2024 10:57 AM CDT) Sodium 138 135 - 145 mmol/L Comment:Testing performed by : [facility], [address] [place] [address]., [address] Potassium, pl 4.8 3.3 - 4.9 mmol/L [facility] ([facility]) Comment:Testing performed by : [facility], [address] [place] [address]., [address] Chloride 96(L) 97 - 110 mmol/L [facility] ([facility]) Comment:Testing performed by : [facility], [address] [place] [address], [address] CO2 28 22 - 32 mmol/L [facility] ([facility]) Comment:Testing performed by : [address], [address] Anion gap 14 2 - 15 mmol/L [facility] ([facility]) Comment:Testing performed by : [address] [address] BUN 31(H) 6 - 25 mg/dL [facility] ([facility]) Comment:Testing performed by : [facility], [address] [place] [address], [address] Creatinine 1.42(H) 0.60 - 1.10 mg/dL [facility] ([facility]) Comment:Testing performed by : [address] [address] Glucose 75 70 - 199 mg/dL [facility] ([facility]) Comment: Interpretive Data Fasting glucose >/= 126 mg/dl is diagnostic for diabetes. Fasting is defined as no caloric intake for at least 8 hours. Fasting glucose between 100 mg/dl to 125 mg/dl is diagnostic of prediabetes. In a patient with classic symptoms of hyperglycemia or hyperglycemic crisis, a random glucose >/= 200 mg/dl is diagnostic for diabetes. In the absence of unequivocal hyperglycemia, results should be confirmed by repeat testing. The classification and Diagnosis of Diabetes Diabetes Care 2021; 46: S19-S40. Current interpretive data was last revised 2022. Testing performed by: [address] [address] Calcium 9.7 8.5 - 10.3 mg/dL [facility] ([facility]) Comment:Testing performed by : [address], [place]., [address] Bilirubin, total 1.2 0.1 - 1.2 mg/dL [facility] ([facility]) Comment:Testing performed by : [facility], [address] [place] [address]., [address] Protein, pl 7.6 6.5 - 8.5 g/dL [facility] ([facility]) Comment:Testing performed by : [facility], [address] [place] [address], [address] Albumin 4.4 3.5 - 5.0 g/dL [facility] ([facility]) Comment:Testing performed by : [facility], [address] [place] [address], [address] Alk phos 134(H) 40 - 130 Units/L [facility] ([facility]) Comment:Testing performed by : [facility], [address] [place] [address], [address] ALT 28 7 - 45 Units/L [facility] ([facility]) Comment:Testing performed by : [facility], [address] [place] [address], [address] AST 35 10 - 45 Units/L [facility] ([facility]) Comment:Testing performed by : [facility], [address] [place] [address], [address] Blood 04/28/2024 10:5 7 AM CDT 04/28/2024 6:20 PM CDT us Rudolph Zhang MD LAB BLOOD ORDERABLES Final R esult TOY [facility] ([place]) 1 [facility] [place] [address] * POCT hemoglobin A1c (04/07/2024 10:48 AM HEAD WAITER/WAITRESS) Hemoglobin A1C, POC 6.2 4.0 - 5.6 % Blood 04/07/2024 10:4 8 AM HEAD WAITER/WAITRESS us Hay Calvo MD POINT OF CARE TEST ORDERABLES F inal Result * DIAGNOSTIC MAMMOGRAM BILATERAL W DARRIUS (12/01/2023 10:07 AM CDT) Anatomical Region Laterality Modality Breast Bilateral Mammography 12/01/2023 11:2 0 AM CDT Impressions 12/01/2023 12:43 PM CDT 1. Heterogeneous tissue with calcifications and posterior shadowing in the right breast at 2:00, 5 cm from the nipple correlates to focal asymmetry and architectural distortion with calcifications on mammogram. The findings are of moderate suspicion for malignancy given history of calcified malignant phyllodes; differential diagnosis includes evolving fat necrosis. Recommend ultrasound-guided biopsy of the heterogeneous tissue superficial to the area of shadowing. 2. Calcified 1.4 cm mass in the right breast at 10:00, 5 cm from the nipple is favored to represent fat necrosis. Further management pending biopsy results. 3. Diffuse coarse heterogeneous calcifications predominantly within the lower and central left breast are probably benign. Recommend follow-up left diagnostic mammogram in 6 months. The method of initial detection of finding was 3D screening mammography (Sdbt). OVERALL FINAL ASSESSMENT: SUSPICIOUS. BI-RADS Category 4B: Moderate suspicion for malignancy. RECOMMENDATION: 1. Ultrasound-guided biopsy of right breast at 2:00, 5 cm from the nipple. 2. Management of a calcified 1.4 cm mass in the right breast at 10:00, 5 cm from the nipple, favored to represent fat necrosis, pending biopsy results. 3. Follow-up of probably benign calcifications in the left breast in 6 months with left diagnostic mammogram. Dr. Ryder discussed the above findings and recommendations with the patient. She has been scheduled for biopsy on 12/08/2023 at 12:45 PM. This facility will contact the referring clinician's office for an order. Dictated by: Evelia Ryder M.D. The radiology attending physician has personally reviewed this study, and had reviewed and/or edited this written report and agrees with it. Electronically signed by: Tim Guerrero MD Narrative 12/01/2023 12:43 PM CDT EXAMINATION: BILATERAL DIGITAL DIAGNOSTIC MAMMOGRAM INCLUDING CAD AND BILATERAL DIGITAL BREAST TOMOSYNTHESIS; RIGHT BREAST SONOGRAM HISTORY: 68-year-old woman with screening detected calcified mass and architectural distortion with calcifications in the right breast as well as left breast calcifications presenting for additional imaging. 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 Prior left breast biopsy demonstrated benign fibrocystic change. COMPARISON: 11/10/2023 bilateral screening mammogram and additional prior studies back to 2016. TECHNIQUE: Full field digital mammographic views of BOTH breasts were performed, including computer aided detection (CAD) and BILATERAL digital breast tomosynthesis (DBT). Directed ultrasound evaluation of the RIGHT breast was performed. BREAST PARENCHYMAL COMPOSITION: There are scattered areas of fibroglandular density. MAMMOGRAM FINDINGS: There is a focal asymmetry and architectural distortion with associated calcifications in the slightly upper inner right breast at anterior to mid depth which persists with spot compression. Additional smaller focal asymmetry with coarse calcification is present in the slightly lower inner right breast at posterior depth. There is a calcified mass in the upper outer right breast with areas of central lucency most consistent with fat necrosis. There is diffuse right breast skin thickening most consistent with postradiation change. There are diffuse coarse heterogeneous and dystrophic calcifications throughout the left breast, predominantly within the lower and central breast. SONOGRAM FINDINGS: Targeted sonographic evaluation of the right breast at 2:00, 5 cm from the nipple demonstrates heterogeneous tissue with calcifications and posterior shadowing measuring 1.5 x 1.4 x 1.0 cm. The finding correlates to the slightly upper inner focal asymmetry and distortion on mammogram. In the right breast at 10:00, 5 cm from the nipple there is an area of posterior shadowing measuring 1.4 x 1.1 x 0.7 cm. This finding correlates to the calcified mass on mammogram, likely representing fat necrosis. Procedure Note Tim Guerrero MD - 12/01/2023 EXAMINATION: BILATERAL DIGITAL DIAGNOSTIC MAMMOGRAM INCLUDING CAD AND BILATERAL DIGITAL BREAST TOMOSYNTHESIS; RIGHT BREAST SONOGRAM HISTORY: 68-year-old woman with screening detected calcified mass and architectural distortion with calcifications in the right breast as well as left breast calcifications presenting for additional imaging. 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 Prior left breast biopsy demonstrated benign fibrocystic change. COMPARISON: 11/10/2023 bilateral screening mammogram and additional prior studies back to 2016. TECHNIQUE: Full field digital mammographic views of BOTH breasts were performed, including computer aided detection (CAD) and BILATERAL digital breast tomosynthesis (DBT). Directed ultrasound evaluation of the RIGHT breast was performed. BREAST PARENCHYMAL COMPOSITION: There are scattered areas of fibroglandular density. MAMMOGRAM FINDINGS: There is a focal asymmetry and architectural distortion with associated calcifications in the slightly upper inner right breast at anterior to mid depth which persists with spot compression. Additional smaller focal asymmetry with coarse calcification is present in the slightly lower inner right breast at posterior depth. There is a calcified mass in the upper outer right breast with areas of central lucency most consistent with fat necrosis. There is diffuse right breast skin thickening most consistent with postradiation change. There are diffuse coarse heterogeneous and dystrophic calcifications throughout the left breast, predominantly within the lower and central breast. SONOGRAM FINDINGS: Targeted sonographic evaluation of the right breast at 2:00, 5 cm from the nipple demonstrates heterogeneous tissue with calcifications and posterior shadowing measuring 1.5 x 1.4 x 1.0 cm. The finding correlates to the slightly upper inner focal asymmetry and distortion on mammogram. In the right breast at 10:00, 5 cm from the nipple there is an area of posterior shadowing measuring 1.4 x 1.1 x 0.7 cm. This finding correlates to the calcified mass on mammogram, likely representing fat necrosis. IMPRESSION: 1. Heterogeneous tissue with calcifications and posterior shadowing in the right breast at 2:00, 5 cm from the nipple correlates to focal asymmetry and architectural distortion with calcifications on mammogram. The findings are of moderate suspicion for malignancy given history of calcified malignant phyllodes; differential diagnosis includes evolving fat necrosis. Recommend ultrasound-guided biopsy of the heterogeneous tissue superficial to the area of shadowing. 2. Calcified 1.4 cm mass in the right breast at 10:00, 5 cm from the nipple is favored to represent fat necrosis. Further management pending biopsy results. 3. Diffuse coarse heterogeneous calcifications predominantly within the lower and central left breast are probably benign. Recommend follow-up left diagnostic mammogram in 6 months. The method of initial detection of finding was 3D screening mammography (Sdbt). OVERALL FINAL ASSESSMENT: SUSPICIOUS. BI-RADS Category 4B: Moderate suspicion for malignancy. RECOMMENDATION: 1. Ultrasound-guided biopsy of right breast at 2:00, 5 cm from the nipple. 2. Management of a calcified 1.4 cm mass in the right breast at 10:00, 5 cm from the nipple, favored to represent fat necrosis, pending biopsy results. 3. Follow-up of probably benign calcifications in the left breast in 6 months with left diagnostic mammogram. Dr. Ryder discussed the above findings and recommendations with the patient. She has been scheduled for biopsy on 12/08/2023 at 12:45 PM. This facility will contact the referring clinician's office for an order. Dictated by: Evelia Ryder M.D. The radiology attending physician has personally reviewed this study, and had reviewed and/or edited this written report and agrees with it. Electronically signed by: Tim Guerrero MD us Scotty Oneil MD IMG MAMMO PROCEDURES Eda l Result * (ABNORMAL) Lipid panel (08/11/2023 11:04 AM CDT) Cholesterol 119 30 - 199 mg/dL Comment: Interpretive Data Ages < or = 19 years Acceptable: <170 mg/dL Borderline high: 170-199 mg/dL High: >or= 200 mg/dL Ages > or = 20 years Desirable: <200 mg/dL Borderline high: 200-239 mg/dL High: >or= 240 mg/dL Literature References: 1. Expert Panel on Integrated Guidelines for Cardiovascular Health and Risk Reduction in Children and Adolescents. Pediatrics 2011;128:S213 2. NCEP Expert Panel. Circulation 2004;110:227 Current Interpretive Data was last revised on 2017. Testing performed by: [facility], [address] [place] [address], [place]., [address] Triglycerides 224(H) <=149 mg/dL TOY [facility] ([facility]) Comment: Interpretive Data Ages < or = 9 years Acceptable: <75 mg/dL Borderline high: 75-99 mg/dL High: >or= 100 mg/dL Ages 10 to 20 years Acceptable: <90 mg/dL Borderline high: 90-129 mg/dL High: >or= 130 mg/dL Ages > or = 20 years Desirable: <150 mg/dL Borderline high: 150-199 mg/dL High: 200-499 mg/dL Very high: >or= 499 mg/dL Literature References: 1. Expert Panel on Integrated Guidelines for Cardiovascular Health and Risk Reduction in Children and Adolescents. Pediatrics 2011;128:S213 2. NCEP Expert Panel. Circulation 2004;110:227 Current Interpretive Data was last revised on 2017. Testing performed by: [facility], [address] [place] [address]., [address] HDL 33(L) >=40 mg/dL [facility] ([facility]) Comment: Interpretive Data Ages < or = 19 years Acceptable: >45 mg/dL Borderline low: 40-45 mg/dL Low: <40 mg/dL Ages > or = 20 years Desirable: >or= 60 mg/dL Low: <40 mg/dL Literature References: 1. Expert Panel on Integrated Guidelines for Cardiovascular Health and Risk Reduction in Children and Adolescents. Pediatrics 2011;128:S213 2. NCEP Expert Panel. Circulation 2004;110:227 Current Interpretive Data was last revised on 2017. Testing performed by: [facility], [address] [place] [address]., [address] LDL, calculated 41 <=129 mg/dL [facility] ([facility]) Comment: Interpretive Data Ages < or = 19 years Acceptable: <110 mg/dL Borderline high: 110-129 mg/dL High: >or= 130 mg/dL Ages > or = 20 years Optimal: <100 mg/dL Near optimal: 100-129 mg/dL Borderline high: 130-159 mg/dL High: >160 mg/dL Literature References: 1. Expert Panel on Integrated Guidelines for Cardiovascular Health and Risk Reduction in Children and Adolescents. Pediatrics 2011;128:S213 2. NCEP Expert Panel. Circulation 2004;110:227 Current Interpretive Data was last revised on 2017. Testing performed by: [facility], [address] [place] [address]., [address] Non-HDL Cholesterol 86 mg/dL [facility] ([facility]) Comment: Interpretive Data Ages < or = 19 years Acceptable: <120 mg/dL Borderline high: 120-144 mg/dL High: >145 mg/dL Ages > or = 20 years When triglycerides are >200 mg/dL, Non-HDL cholesterol is a secondary target of therapy with treatment goals that are 30 mg/dL greater than the LDL cholesterol target. Literature References: 1. Expert Panel on Integrated Guidelines for Cardiovascular Health and Risk Reduction in Children and Adolescents. Pediatrics 2011;128:S213 2. NCEP Expert Panel. Circulation 2004;110:227 Current Interpretive Data was last revised on 2017. Testing performed by: [facility], [address] [place] [address]., [address] Chol/HDL ratio 4 CONIEDUARDA Graciela FIGUEREDO ([facility]) Comment:Testing performed by : [facility], [address] [place] [address]., [address] Blood 08/11/2023 11:0 4 AM CDT 08/11/2023 6:30 PM CDT Narrative [facility] ([facility]) - 08/11/2023 7:06 PM CDT These lab test should be done fasting. This means do not eat or drink for at least 12 hours prior to getting your blood drawn. Hay Calvo MD LAB BLOOD ORDERABLES Final Resu lt [facility]Y [facility] ([place]) [facility] Department [place] [address] * (ABNORMAL) DIABETES EYE EXAM (03/12/2023) SCRIBED DIABETIC DILATED EYE EXAM Abnormal Marcus Provider HEALTH MAINTENANCE Final Result * Dexa Axial Skeleton Bone Density 1 or 2 Site (09/25/2022 2:02 PM CDT) Anatomical Region Laterality Modality Body N/A Radiographic Sera ging Narrative 09/27/2022 8:17 AM CDT Patient Name: Jose Daniel Martin Date of : 1955 Date of scan: 09/25/2022 Bone mineral density was performed on a Hologic Discovery Densitometer. Based on machine cross-calibration and precision studies the least significant changes of this densitometer is 0.024 g/cm2 at the spine, 0.020 g/cm2 at the total proximal femur, and 0.014g/cm2 at the forearm. HISTORY: This is a 67 y.o. postmenopausal female with a history of breast cancer. She reports that she has never smoked. She has never used smokeless tobacco. Currently on treatment with calcium, anticoagulants, and diuretics and previously treated with hormone replacement therapy. INDICATIONS: Menopause status. FINDINGS: BONE MINERAL DENSITY OF THE LUMBAR SPINE Bone Mineral Density (BMD) of the lumbar spine was measured from L2-L4 and the average density was calculated to be 1.148 gm/cm2. This corresponds to a T-score (standard deviations from the mean of young adults) of 0.6. There is no previous study available for comparison. BONE MINERAL DENSITY OF THE PROXIMAL FEMUR Bone Mineral Density (BMD) of the left hip total was found to be 1.126 gm/cm2. This corresponds to a T-score standard deviations from the mean of young adults of 1.5. Femoral neck is 0.774 gm/cm2 with a T-score (standard deviations from the mean of young adults) of -0.7. There is no previous study available for comparison. SUMMARY: Bone mineral density is near the young adult normal mean with no increased risk for fracture. L1 excluded from bone mineral density analysis of the lumbar spine because of the presence of an artifact. ADDITIONAL COMMENTS: Postmenopausal Women and Men Over 50: Diagnostic criteria: Osteoporosis: BMD at or below -2.5 T-score; Osteopenia (low bone mass): BMD between -1.0 and -2.5 T-score. If the patient has a history of a fragility fracture, a fracture that occurred with trauma equivalent to a fall from a standing position or less, then the diagnosis is osteoporosis regardless of bone density. The history and data sections of the bone mineral density scan were prepared by Regina Barker who is accredited by the International Society of Clinical Densitometry. The overall patient assessment and scan interpretation were performed by Kassidy Maldonado M.D. who is certified by the International Society of Clinical Densitometry. [id number] Hay Calvo MD [facility] [place]ED[place] Final Result * (ABNORMAL) Albumin Creatinine Ratio, Urine (05/27/2022 4:05 PM CDT) Albumin Ur <12.0 mg/L [facility] ([facility]) Comment: Interpretive Data No reference range established. Current interpretive data was last revised 2018. Testing performed by: [facility], [address] [place] [address], [place]., [address] Creatinine Ur 37.0 mg/dL [facility] ([facility]) Comment: Interpretive Data No reference range established. Current interpretive data was last revised 2018. Testing performed by: [facility], [address] [place] [address]., [address] Albumin Creatinine Ratio, Ur <32(H) 1 - 29 mg/g [facility] ([facility]) Comment: Unable to calculate Testing performed by: [facility], [address] [place] [address]., [address] Urine 05/27/2022 4:05 PM CDT 05/27/2022 4:06 PM CDT us Hay Calvo MD LAB URINE ORDERABLES Final Resu lt [facility] ([place]) [facility] Department [place] [address] * Hepatitis panel, acute (12/23/2019 4:10 PM HEAD WAITER/WAITRESS) Hep A IgM Nonreactive Nonreactive [facility] Comment: Interpretive Data: If Hep A IgM Ab is reported as Equivocal, a new sample should be drawn in two weeks for testing. Current interpretive data was last revised on 19. Hep B core IgM Nonreactive Nonreactive [facility] Comment: Interpretive Data If HepB Core IgM Ab is reported as Equivocal, a new sample should be drawn in two weeks for testing. Current interpretive data was last revised on 19. Hep C Ab Nonreactive Nonreactive [facility] Comment:Antibodies to HCV no t detected. Does NOT exclude the possibility of recent exposure to HCV. HepBsAg Nonreactive Nonreactive [facility] Blood specimen (specimen) 12/23/2019 4:10 PM HEAD WAITER/WAITRESS 12/23/2019 4:52 PM HEAD WAITER/WAITRESS us Maeve Kuo MD LAB MICROBIOLOGY - GENERAL O RDERABLES Edited Result - Final [facility] [place] [address] * DIABETES FOOT EXAM (01/29/2017) Diabetic Foot Exam Unknown us Historical Provider HEALTH MAINTENANCE Final Result * COLONOSCOPY REPORT (11/10/2014) Anatomical Region Laterality Modality Other Narrative 11/10/2014 Ordered by an unspecified provider. us Historical Provider GI PROCEDURE ORDERABLES F inal Result from Last 3 Months or Most Recently Relevant to Health Maintenance Insurance MEDICARE [facility] Member Subscriber Plan / Payer (Ef fective 2019-Present) Name:Jose Daniel Martin Relation to Subscriber:Self Name:Jose Daniel Martin Payer ID:[id number] Group ID:[id number] Type:Broadband Voice Address: [address] [facility] [place] [address] MEDICARE [facility] MEDICARE [facility] MEDICARE [employer] Member Subscriber Plan / Payer ( fective 2019-Present) Name:Jose Daniel Martin Relation to Subscriber:Self Name:Jose Daniel Martin Payer ID:[id number] Group ID:[id number] Type:Broadband Voice Address: [address] [facility] [place] [facility] [place] [address] MEDICARE [employer] MEDICARE [facility] Advance Directives For more information, please contact: [phone] * Full Code (Latest Code Status on File) Date Activated Date Inactivated Comments 07/15/2023 10:38 PM 07/18/2023 4:05 PM * Full Code Date Activated Date Inactivated Comments 02/12/2022 8:51 PM 02/15/2022 10:20 PM * Full Code Date Activated Date Inactivated Comments 11/26/2020 11:49 PM 11/27/2020 6:15 PM * Full Code Date Activated Date Inactivated Comments 10/29/2019 8:36 AM 10/29/2019 2:06 PM * Full Code Date Activated Date Inactivated Comments 10/22/2019 9:45 AM 10/22/2019 3:38 PM Care Teams Supervisor Paste Mixing Relationship Specialty Start Date End [place] [address] PCP - General 05/10/16 [place], Maeve Leach MD [address] [place] [address] Surgeon Breast Surgery 10/27/17 Castillo Hollis MD [address] [facility] [address] [place], [place] [id number] Radiation Oncology 10/27/17 Aleta Cevallos, RN [address] [facility] [address] [place], [place] [id number] VAD Coordinator Panel Cutter 09/13/19 Josette Ramirez MD [address] [place], [place] [id number] Surgeon Cardiothoracic Surgery 09/15/19 Miscellaneous, Not In File 09/15/19
--- OUTSIDE RECORDS SUMMARY | 2024-07-07 10:14 | XMS_ITS | Encounter Summary ---
Author Organization [facility] Address [address] [place] [address] Care Team Providers Care Refresh Technician Name Role Phone Scotty Oneil MD Primary Care Provider [phone] Maeve Multani MD Unavailable [phone] Castillo Hollis MD Unavailable Aleta Cevallos RN Unavailable [phone] Josette Ramirez MD Unavailable [phone] Miscellaneous, Not In File Unavailable Unava ilable Encounter Details Date Type Department Care Team (Late st Contact Info) Description 07/05/2023 Orders Only [facility] [address] [place] [address] Scotty Oneil MD [address] [place] [address] Social History Tobacco Use Types Packs/Day Years [...] often do you attend chur ch or caodaism services? More than 4 times per year 06/10/2019 Do you belong to any clubs o r organizations such as episcopalian groups, unions, fraternal or athletic groups, or [...] points, staff should administer the PHQ-9) 0 09/30/2022 Hunger Vital Sign Answer Date Recorded Within [...] No 11/29/2020 Personal Safety Answer Date Recorded Getting School Help Needed Not on file 05/18 Comments No Sex and Gender Information Value Date Recorded Sex Assigned at Not on file Legal Sex Female 11:50 PM CAM MAKER Gender Identity Female 05/25/2020 10:45 AM CDT Sexual Orientation Straight 07/07/2019 7: 18 PM CDT documented as of this encounter Ordered Prescriptions Prescription Sig Dispense Quantity Refills Last Filled Start Date End Date azithromycin (ZITHROMAX) 250 mg tablet Take 2 tabs (500 mg) by mouth today, than 1 tab (250 mg) daily for 4 days. 6 tablet 07/05/2023 07/10/2023 documented in this encounter Plan of Treatment Not on file documented as of this encounter Visit Diagnoses Not on filedocumented in this encounter Care Teams Refresh Technician Relationship Specialty Start Date End Date Scotty Oneil MD [address] [place] [address] PCP - General 05/10/16 NerissaMaeve MD [address] [place] [address] Surgeon Breast Surgery 10/27/17 Castillo Hollis MD [address] [facility] [address] [place] [address] Radiation Oncology 10/27/17 Aleta Cevallos, RN [address] [place] [address] VAD Coordinator Milk Runner 09/13/19 Josette Ramirez MD [address] [place] [address] Surgeon Cardiothoracic Surgery 09/15/19 Miscellaneous, Not In File 09/15/19 documented as of this encounter
--- OUTSIDE RECORDS SUMMARY | 2024-07-07 10:14 | XMS_ITS | Clinical Summary ---
Author Organization [facility] Address [address] [place] [address] Care Team Providers Care Gill Tender Name Role Phone Scotty Oneil MD Primary Care Provider [phone] Maeve Multani MD Unavailable [phone] Castillo Hollis MD Unavailable Aleta Cevallos RN Unavailable [phone] Josette Ramirez MD Unavailable [phone] Miscellaneous, Not In File Unavailable Unava ilable Allergies Active Allergy Reactions Criticality Noted Date [...] hyperglycemia, with long-term current use of insulin ([facility]) Use to inject 1-4 times daily as directed. 300 each 4 07/17/19 22 Active blood glucose diagnostic (glucose blood) stripIndicatio ns:Controlled type 2 diabetes mellitus with hyperglycemia, with long-term current use of insulin ([facility]) Check blood sugar four times a day or as directed 400 each 11 03/13/19 23 Active glucagon (Gvoke HypoPen 1-Pack) 1 mg/0.2 mL auto-injectorI ndications:Typ e 2 diabetes mellitus with hyperglycemia, with long-term current use of insulin ([facility]) Use as directed for severe low blood sugar 0.2 mL 2 03/20/19 23 Active terbinafine (LamISIL) 1 % cream Apply topically 2 (two) times a day 30 g 2 03/20/19 23 Active blood-glucose transmitter (Dexcom G6 Transmitter) deviceIndicati ons:Type 2 diabetes mellitus without complication, with long-term current use of insulin ([facility]) Use one transmitter one every 3 months [...] complication, with long-term current use of insulin ([facility]) INJECT 2 MG UNDER THE SKIN EVERY 7 DAYS 3 mL 3 11/12/19 24 Active magnesium oxide (MAG-OX) 400 mg (241.3 mg elemental magnesium) tablet TAKE 1 TABLET(400 MG) BY MOUTH TWICE DAILY 60 tablet 11 11/17/19 24 Active insulin glargine (TOUJEO) 300 unit/mL (1.5 mL) pen for injectionIndic ations:Type 2 diabetes mellitus without complication, with long-term current use of insulin ([facility]) Inject 38 Units under the skin daily [...] hyperglycemia, with long-term current use of insulin ([facility]) Inject 13 units three times a day [...] 2 mg tablet Take 2mg daily; 3mg mon/tue 03/11/19 25 Active metoprolol XL (TOPROL-XL) 25 [...] ceftriaxone and follow up urine cultures from [facility] -culture has grown Proteus -ceftriaxone 2 g [...] ceftriaxone and follow up urine cultures from [facility] -ceftriaxone 2 g daily transitioned to cefepime [...] out 04/22/2023 Generalized contraction of visual field, brett al 04/22/2023 Assessment & Plan (04/22/2023 11:35 AM CDT): Better on visual field (VF) than confrontations - non specific defects OU Fall 02/13/2022 Assessment & Plan (02/14/2022 12:57 PM COTTON ROLL PACKER): Patient states she was feeling weak and her wheelchair was only locked on one side which caused her to lose her balance and have a mechanical fall (no loss of consciousness) -Medtronic ICD interrogation-no arrhythmias -PT/OT evaluated the patient Spo2 96% on room air with activity. pt denied SOB Assessment & Plan (02/13/2022 5:29 PM COTTON ROLL PACKER): Patient states she was feeling weak and her wheelchair was only locked on one side which caused her to lose her balance and have a mechanical fall (no loss of consciousness) -Medtronic ICD interrogation-no arrythmias Closed nondisplaced fracture of surgical neck of right humerus 02/12/2022 Assessment & Plan (02/15/2022 9:22 AM COTTON ROLL PACKER): In the setting of a mechanical fall [...] evaluations Assessment & Plan (02/14/2022 12:34 PM COTTON ROLL PACKER): In the setting of a mechanical fall [...] evaluations Assessment & Plan (02/13/2022 5:40 PM COTTON ROLL PACKER): In the setting of a mechanical fall [...] 02/12/2022 Assessment & Plan (02/14/2022 12:59 PM COTTON ROLL PACKER): -Serum Cr currently at baseline -Daily BMPs -Avoid nephrotoxins Assessment & Plan (02/13/2022 5:01 PM COTTON ROLL PACKER): -Serum Cr currently at baseline -Daily BMPs [...] symptoms. Assessment & Plan (02/14/2022 12:59 PM COTTON ROLL PACKER): -Continue home Pregabalin Assessment & Plan (02/13/2022 5:01 PM COTTON ROLL PACKER): -Continue home Pregabalin Left ventricular assist device [...] overload. Assessment & Plan (02/15/2022 9:21 AM COTTON ROLL PACKER): -Paroxysmal atrial fibrillation but currently in sinus rhythm -Continue home Metoprolol for rate control -Continue warfarin for AC (INR at 2.3) -Monitor on telemetry and replete serum electrolytes for a goal K >4.0 and Mg >2.0 Assessment & Plan (02/14/2022 12:31 PM COTTON ROLL PACKER): -Paroxysmal atrial fibrillation but currently in sinus rhythm -Continue home Metoprolol for rate control -Continue warfarin for AC (INR at 2.3) -Monitor on telemetry and replete serum electrolytes for a goal K >4.0 and Mg >2.0 Assessment & Plan (02/13/2022 5:09 PM COTTON ROLL PACKER): -Paroxysmal atrial fibrillation but currently in sinus [...] -telemetry Assessment & Plan (02/15/2022 9:23 AM COTTON ROLL PACKER): S/p HeartMate 3 implanted 08/24/2019 (DT) -LVAD functioning appropriately without alarms -INR currently 3.2 (INR goal 2.0-3.0) -Continue warfarin 3 mg daily and 2 mg on Friday and Friday -Daily INRs Assessment & Plan (02/14/2022 12:58 PM COTTON ROLL PACKER): S/p HeartMate 3 implanted 08/24/2019 -LVAD functioning appropriately without alarms -INR currently 2.3 (INR goal 2.0-3.0) -Continue warfarin 3 mg daily and 2 mg on Friday and Friday -Daily INRs Assessment & Plan (02/13/2022 5:24 PM COTTON ROLL PACKER): S/p HeartMate 3 implanted 08/24/2019 -LVAD functioning [...] (08/16/2019): Added automatically from request for surgery [id number] Assessment & Plan (02/15/2022 9:18 AM COTTON ROLL PACKER): ACC/AHA stage D heart failure secondary to [...] ) Assessment & Plan (02/14/2022 12:32 PM COTTON ROLL PACKER): ACC/AHA stage D heart failure secondary to [...] telemetry Assessment & Plan (02/13/2022 5:24 PM COTTON ROLL PACKER): ACC/AHA stage D heart failure secondary to [...] (08/17/2019): Added automatically from request for surgery [id number] Hx of adenomatous colonic polyps 07/09/2019 ICD [...] 03/09/2019 Assessment & Plan (03/09/2019 9:11 AM COTTON ROLL PACKER): S/p Vanc x 2 Will discharge on doxy Cardiac arrest with ventricular fibrillation Assessment & Plan (03/09/2019 9:12 AM COTTON ROLL PACKER): - Admitted 02/24 following Vfib arrest. Required chest compressions, defibrillation and epinephrine - [facility] 02/24 with widely patent stents in the LAD and obtuse marginal branch and unchanged CAD from prior [facility] in 09/2018 - Was not cooled. Now back at baseline mental status. - Cardiac arrest felt to be due to arrhythmia in the setting of acute on chronic CHF - Was on amiodarone for ectopy earlier this admission. Now discontinued. - Patient not willing to repeat cMRI - S/p ICD placement Assessment & Plan (03/02/2019 6:23 PM COTTON ROLL PACKER): Unable to view telemetry in the ED showing ventricular fibrillation. Patient previously seen by Dr. De La Paz for SVT where possible SVT ablation had been discussed. S/p multiple rounds of CPR, epinephrine, amiodarone, defibrillation. Per nursery laborer, most likely 2/2 acute on chronic CHF, [...] (09/03/2018): Added automatically from request for surgery [id number] NSTEMI (non-ST elevated myocardial infarction) 0 08/25/2018 Overview (08/25/2018): Added automatically from request for surgery [id number] SVT (supraventricular tachycardia) 08/13/2018 Assessment & Plan [...] to have any extensive cardiac workup in [facility] and would like to have a [...] apnea Assessment & Plan (02/15/2022 9:16 AM COTTON ROLL PACKER): Continue nocturnal CPAP Assessment & Plan (02/14/2022 12:58 PM COTTON ROLL PACKER): Continue nocturnal CPAP Assessment & Plan (02/12/2022 9:21 PM COTTON ROLL PACKER): Nocturnal CPAP Assessment & Plan (09/01/2019 11:41 [...] 03/31/2015 Assessment & Plan (03/05/2019 11:38 AM COTTON ROLL PACKER): Improved - R sided, worsened with inspiration, reproduced with palpation - Likely MSK chest pain due to chest compressions. CXR with no obvious rib fractures. - Lidocaine patch, PRN Tylenol Triple vessel coronary artery disease 03/31/2015 Assessment & Plan (02/15/2022 9:17 AM COTTON ROLL PACKER): History of coronary artery disease complicated by NSTEMI and VF arrest in February of 2019 and multiple prior PCIs -Currently without any angina or equivalent symptoms -Continue aspirin 81 mg daily and Crestor 40 mg daily -continue aggressive risk factor modification Assessment & Plan (02/14/2022 12:59 PM COTTON ROLL PACKER): History of coronary artery disease complicated by NSTEMI and VF arrest in February of 2019 and multiple prior PCIs -Currently without any angina or equivalent symptoms -Continue aspirin 81 mg daily and Crestor 40 mg daily Assessment & Plan (02/13/2022 5:23 PM COTTON ROLL PACKER): History of coronary artery disease complicated by [...] has 4 stents placed in 2007 (3 LAUAR, 1 BMS), has been on aspirin and [...] plavix Assessment & Plan (03/03/2019 12:24 AM COTTON ROLL PACKER): - C 02/24/2019 with widely patent stents in LAD [...] glycemic control. Continue f/u with Endocrine at [facility]. Appreciate their expertise. Assessment & Plan (07/18/2023 [...] of DM2 requiring insulin. Home regimen includes long- acting 36 units nightly, short-acting 13-16 units t.i.d. [...] 02/12/2023 Assessment & Plan (02/15/2022 9:16 AM COTTON ROLL PACKER): -Poorly controlled, last A1c 10.4 at time [...] check Assessment & Plan (02/14/2022 12:59 PM COTTON ROLL PACKER): -Poorly controlled, last A1c 10.4 -Endocrine consulted, [...] -Accuchecks Assessment & Plan (02/13/2022 5:40 PM COTTON ROLL PACKER): -Poorly controlled, last A1c 10.4 -Endocrine consulted, [...] diet Assessment & Plan (03/03/2019 12:35 AM COTTON ROLL PACKER): - A1c 6.9% 02/11/2019 - Home regimen: Metformin 1000 mg BID, NPH 35 units BID, lispro 50 unites total daily - Inpatient regimen: NPH 27 units BID, lispro 16 units TID with meals, HDSSI Assessment & Plan (03/02/2019 6:25 PM COTTON ROLL PACKER): A1c on 02/11/2019 was 6.9. At home, [...] episode with trops 0.31, presented to her trade specialist office on 08/20, diagnosed as NSTEMI -cath [...] 11/07/2011 Assessment & Plan (02/15/2022 9:08 AM COTTON ROLL PACKER): -Continue home Crestor Assessment & Plan (02/14/2022 12:57 PM COTTON ROLL PACKER): -Continue home Crestor Assessment & Plan (02/13/2022 5:02 PM COTTON ROLL PACKER): -Continue home Crestor Class 3 severe obesity due t o excess calories with serious comorbidity and body mass index (BMI) of 40.0 to 44.9 in adult 06/26/2010 Overview (05/22/2017): Description: Obesity Assessment & Plan (04/23/2024 10:37 AM CDT): Encouraged heart healthy diet and lifestyle. Advised 150 min/week of aerobic exercise. Assessment & Plan (02/15/2022 9:22 AM COTTON ROLL PACKER): -BMI 48 -encourage aggressive management of DM and weight control Benign essential hypertension 06/26/2010 Overview (05/22/2017): Description: Benign Essential Hypertension Assessment & Plan (03/07/2019 9:47 AM COTTON ROLL PACKER): - Normotensive following arrest - Irbesartan 300 mg daily, metoprolol 12.5 daily, spironolactone 25 mg daily Assessment & Plan (03/02/2019 6:23 PM COTTON ROLL PACKER): Initially arrived to the floor on nitro [...] (07/27/2019): Added automatically from request for surgery [id number] Unexplained weight loss 07/27/2019 0707/2019 Overview (07/27/2019): Added automatically from request for surgery [id number] Chronic nausea 07/09/2019 08/16/2019 Diarrhea 06/07/2019 08/16/2019 Assessment & Plan (08/10/2019 11:32 AM CDT): Patient has ongoing diarrhea for past several years. Being evaluated as an outpatient, provisional diagnosis IBS-D, no diarrhea since admission - d/c Joellenyl - consider PRN oxy - on regular diet Assessment & Plan (06/09/2019 9:09 AM CDT): Patient with frequent loose, watery stools since over the past several months with 7 stools the day PROCUREMENT COORDINATOR. Did receive abx for a UTI around [...] 09/12 and 09/13 with anticipated discharge to [facility] 09/14 - likely will need BJ extended [...] 09/12 and 09/13 with anticipated discharge to [facility] 09/14 Assessment & Plan (09/10/2019 3:27 PM [...] 09/12 and 09/13 with anticipated discharge to [facility] 09/14 Assessment & Plan (09/01/2019 11:43 PM [...] >2 Assessment & Plan (03/09/2019 9:12 AM COTTON ROLL PACKER): - TTE 02/25 with severe global reduction [...] 02/28/20192019 Assessment & Plan (03/02/2019 6:22 PM COTTON ROLL PACKER): Now resolved. Patient now clearly able to [...] 03/03/2019 Assessment & Plan (03/02/2019 6:24 PM COTTON ROLL PACKER): Trop peak 0.12->0.11->0.10. Per patient's , she [...] 03/03/2019 Assessment & Plan (03/01/2019 1:20 PM COTTON ROLL PACKER): Likely due to flash pulmonary edema. Meeting criteria for severe ARDS with PaO2/FiO2 75 at PEEP 20 on arrival to the CCU. She was given 120 mg IV Lasix in the ED, 500 mg diuril in the nursery laborer, and 80 mg IV bolus on arrival [...] pulm edema on CXR this AM. -03/01: LUMP ROOM SUPERVISOR now have recommended dysphagia 2 diet and thin/regular liquids, on 1 L NC this AM -PT/OT ordered Fever 02/25/2019 03/03/2019 Assessment & Plan (03/02/2019 6:23 PM COTTON ROLL PACKER): Now resolved. On night of admission, the patient was febrile to 38.6. WBC elevated to 19.8. BP stable without pressors. CXR with pulmonary edema, likely flash as prior CXR was clear. UA with negative LE, negative nitrites, reflex to culture. - Started on vanc 2000 q24, cefepime 2000 q12, and Flagyl 500 q8 (02/24-02/26) for empiric antibiotic coverage - F/u blood cultures x2, urine culture, trach aspirate, flu swab - Repeat blood culture, UA, trach aspirate 02/28 Malignant neoplasm of centra l portion of female breast 12/12/2015 10/10/2023 Morbid obesity with BMI of 40.0-44.9, adult 05/12/2015 02/12/2023 Overview (05/17/2016): Morbid obesity with BMI of 40.0-44.9, adult Encounters Date Type Department Care Team Description 06/10/2024 10:40 AM CDT - 06/10/2024 11:59 PM CDT Hospital Encounter [facility] Advanced Medicine Breast Imaging [facility] Advanced Medicine ([facility]) [address] [place] [id number] Breast calcification seen on mammogram Discharge Disposition: Discharge to home or self care 06/09/2024 10:45 AM CDT Therapy [facility] Physical Therapy [place] [address] Maxine De Leon PTA Muscle weakness (generalized) (Primary Dx) 06/07/2024 11:40 AM CDT Lab [facility] Laboratory [address] [address] LVAD (left ventricular assist device) present (HCC) 06/07/2024 10:45 AM CDT Therapy [facility] Physical Therapy - [place] [address] Spike Ott, PT Muscle weakness (generalized) (Primary Dx) 06/07/2024 Anticoagulation Telephone Call [facility] [address] [facility] [address] Mail[address] [phone] [place] [address] Aleta Cevallos, REN 06/03/2024 11:15 AM CDT Therapy [facility] Physical Therapy - [address] [address] Spike Ott, PT Muscle weakness (generalized) (Primary Dx) 05/31/2024 10:45 AM CDT Therapy [facility] Physical Therapy - [place] [address] [place] [address] Maxine De Leon, PROCUREMENT COORDINATOR Muscle weakness (generalized) (Primary Dx) 05/27/2024 10:45 AM CDT Therapy [facility] Physical Therapy [place] [place] [address] Maxine De Leon, PROCUREMENT COORDINATOR Muscle weakness (generalized) (Primary Dx) 05/24/2024 11:30 AM CDT Therapy [facility] [address] [place] [address] Spike Ott, PT Muscle weakness (generalized) (Primary Dx) 05/16/2024 Orders Only [facility] [address] [address] Scotty Oneil MD 05/13/2024 12:00 PM CDT Lab [facility] Laboratory [address] [place] [address] LVAD (left ventricular assist device) present (HCC) 05/13/2024 9:30 AM CDT Office Visit [facility] Cardiology [facility] Medical Office Building [address] [place] [address] Bradycardia (Primary Dx); SOB (shortness of breath); Chronic systolic congestive heart failure (CMS/HCC) ([facility]); Coronary artery disease involving grayling coronary artery of grayling heart without angina pectoris; LVAD (left ventricular assist device) present (HCC) 05/13/2024 Anticoagulation Telephone Call [facility] [address] [facility] [address] [phone] [place] [address] Aleta Cevallos, RN 05/12/2024 1:00 PM CDT Therapy [facility] Physical [place] [address] [place] [address] Maxine De Leon, PROCUREMENT COORDINATOR Muscle weakness (generalized) (Primary Dx) 05/10/2024 12:00 PM CDT Therapy [facility] Physical Therapy - [place] [address] [place] [address] Spike Ott, PT Muscle weakness (generalized) (Primary Dx) 05/10/2024 Telephone [facility] Endocrinology Metabolism and Lipid [address] [facility] 5th [place] [address] [place] [id number] Candy Espinoza RN Prior Auth; ozempic 2 mg 05/03/2024 2:30 PM CDT Therapy [facility] Physical [place] [address] Maxine De Leon, PROCUREMENT COORDINATOR Muscle weakness (generalized) (Primary Dx) 04/30/2024 1:45 PM CDT Therapy [facility] [place] [address] Maxine De Leon, PROCUREMENT COORDINATOR Muscle weakness (generalized) (Primary Dx) 04/29/2024 Telephone [facility] Ophthalmology [address] [facility] 6th Floor, [address] [facility] [place] [address] Whitney Mitchell, SHANE 04/28/2024 11:00 AM CDT Lab [facility] Laboratory [address] [place] [address] LVAD (left ventricular assist device) present (HCC) 04/28/2024 Anticoagulation Telephone Call [facility] [address] [facility] [address] Mail[address] [phone] [place] [address] Aleta Cevallos RN 04/23/2024 10:30 AM CDT Office [facility] [place] [address] [facility] [place] [address] Stefanie Fajardo, LEONCIO Acute non-recurrent maxillary sinusitis (Primary Dx); Class 3 severe obesity due to excess calories with serious comorbidity and body mass index (BMI) of 40.0 to 44.9 in adult (HCC) 04/20/2024 11:00 AM CDT Therapy [facility] Physical Therapy [facility] [address] [place] [address] Spike Ott, JEF Muscle weakness (generalized) (Primary Dx) 04/16/2024 Telephone [facility] Cardiology [address] [facility] 8th [place] [address] [place] [address] Soledad Hedrick, LEONCIO 04/14/2024 Telephone [facility] Endocrinology Metabolism and Lipid [address] [facility] 13th [place] [address] [place] [address] Mine Klein, GIAN MENDIOLA ([facility]) from Last 3 Months Immunizations Immunization Administration Dates Next Due Influenza, Quadrivalent, Debbie l Culture-based MDCK, Antibiotic Free, Intramuscular 12/23/2018 Influenza, Quadrivalent, Hig h Dose, Preservative Free, Intrr 12/17/2021,12/01/2019 Influenza, Unspecified 10/10/2023(Deferr ed: Patient Refused),10/11/2022(Deferred: Patient Refused),02/10/2021(Deferred: Patient Refused),12/20/2020(Deferred: Patient Refused),11/06/2020(Deferred: Patient Refused),02/10/2019(Deferred: Patient Refused),12/23/2018,03/25/2018(Deferre d: Patient Refused),12/30/2016(Deferred: Patient Refused),02/12/2016(Deferred: Patient Refused) Pneumococcal Conjugate PCV 13 12/01/2019 Pneumococcal Polysaccharide PPV23 2021,12/20/2020(Deferred: Patient Refused) ZOSTER Recombinant 12/14/2019 Surgical History Surgery Date Site/Laterality Comments CHOLECYSTECTOMY Cholecystectomy APPENDECTOMY Appendectomy HYSTERECTOMY Hysterectomy US UNLISTED PROCEDURE LYMPH SYSTEM 12/13/2015 N/A BREAST LUMPECTOMY 02/10/2015 - 02/10/2016 Right Malignant phyllodes tumor CORONARY STENT PLACEMENT x 2 CARDIAC CATHETERIZATION CENTRAL LINE PLACEMENT > 5 YEARS 09/10/2019 N/A FLUID DRAIN SOFT TISSUE 09/14/2019 N/A FLUID DRAIN SOFT TISSUE 10/06/2019 N/A ABSCESS CATHETER INJECTION 10/15/2019 N/A LEFT VENTRICULAR ASSIST DEVICE ABSCESS CATHETER INJECTION 10/22/2019 N/A ABSCESS CATHETER INJECTION 10/29/2019 N/A CORONARY ARTERY BYPASS GRAFT ABDOMINAL SURGERY yes BREAST BIOPSY 12/08/2023 Right Medical History Medical History Date Comments Hx Other Medical Sciatica Hx Other Medical Ovarian cyst/ma ss Hypertension Hypertension Cardiovascular disease Coronary artery disease Hx Other Medical Heart Stents x2 Diabetes mellitus (HCC) Diabetes Type 2 diabetes mellitus (HCC) D iabetes type 2; Comments: [place]IS 04/06/2014 - Cardiac disease Heart disease Arrhythmia SVT Coronary artery disease Hyperlipidemia CHF (congestive heart failure) ([facility]) NSTEMI (non-ST elevated myoc ardial infarction) ([facility]) 08/25/2018 GERD (gastroesophageal reflux disease) STACIE (obstructive sleep apnea) CP AP Malignant neoplasm of skin Cance r, skin; Comments: MARIELLE 05/12/2015 - Heart disease Chronic kidney disease Kidney stone Family History Medical History Relation Name Comments Cancer Brother 1 Sel[place] Coronary artery disease Brother 1 [place] Emiliano nary artery disease; Diabetes Brother 1 Selwyn Early Brother 1 [place] Hypertension Brother 1 [place] Obesity Brother 1 [place] Diabetes Brother 2 Diabetes mellit us; Hypertension Brother 3 Hypertension; Coronary artery disease Brother 4 Fami ly history of coronary artery disease - (Added by TW Conv) Diabetes Brother 5 Herber Early Brother 5 Herber Heart attack Brother 5 Herber Family history of heart attack - (Added by TW Conv) Hypertension Brother 5 Herber Diabetes Brother 6 Sathish Family history of diabetes mellitus (DM) - (Added by TW Conv) Early Brother 6 Sathish Hypertension Brother 6 Sathish Rashes / Skin problems Brother 6 Sathish Hypertension Brother 7 Family history of hypertension - (Added by TW Conv) Skin cancer Brother 8 Family history of skin cancer - (Added by TW Conv) Depression Daughter 2 Rossana Diabetes Daughter 2 Rossana Hypertension Daughter 2 Rossana Hypertension; Miscarriages / Stillbirths Daughter 2 Rossana Coronary artery disease Father Chinedu Emiliano nary artery disease; Diabetes Father Chinedu Diabetes mellit us; /Family history of diabetes mellitus (DM) - (Added by TW Conv) Heart attack Father Chinedu Family history of heart attack - (Added by TW Conv) Heart disease Father Chinedu Hypertension Father Chinedu Hypertension; / Family history of hypertension - (Added by TW Conv) Sudden Cardiac Father Chinedu Family history of sudden cardiac - (Added by TW Conv) Cancer Father's Brother Praneeth Cancer Father's Sister Ozzy COPD Maternal Grandfather [place] Cancer Maternal Grandfather Mike Cancer Mother Gerldine Family history of cancer - (Added by TW Conv) Coronary artery disease Mother Gerldine Emiliano nary artery disease; /Family history of coronary artery disease - (Added by TW Conv) Early Mother Gerldine Heart attack Mother Gerldine Family history of heart attack - (Added by TW Conv) Hypertension Mother Gerldine Lung cancer Mother Gerldine Cancer, lung; Obesity Mother Gerldine Rashes / Skin problems Mother Gerldine Vision loss Mother Gerldine Cancer Mother's Brother Jose G Rashes / Skin problems Son Lizzeth Relation Name Status Comments Brother 1 [place] Brother 2 Brother 3 Brother 4 Brother 5 Herber Brother 6 Sathish Brother 7 Brother 8 Daughter 1 Alive Daughter 2 Rossana Father Chinedu Father's Brother Praneeth Father's Sister Ozzy Maternal Grandfather Mike Mother Gerldine Mother's Brother Jose G Son Lizzeth Social History Tobacco Use Types Packs/Day Years [...] often do you attend chur ch or restorationism services? More than 4 times per year 06/10/2019 Do you belong to any clubs o r organizations such as jehovah's witness groups, unions, fraternal or athletic groups, or [...] on file Legal Sex Female 11:50 PM [employer] Gender Identity Female 05/25/2020 10:45 AM CDT Sexual Orientation Straight 07/07/2019 7: 18 PM CDT Obstetrics History Last Filed Vital Signs Vital Sign Reading Time Taken Comments Blood Pressure 66/0 05/13/2024 9:23 AM CDT LVA D Pulse 46 05/13/2024 9:23 AM CDT Temperature 36.8 C (98.3 F) 04/07/2024 10:43 AM [employer]ER Respiratory Rate 20 04/23/2024 10:19 AM CDT Oxygen Saturation 96% 05/13/2024 9:23 AM CDT Inhaled Oxygen Concentration - - Weight 122.5 kg (270 lb) 05/13/2024 9:23 AM CDT Height 167.6 cm (5' 6) 05/13/2024 9:23 AM CDT Body Mass Index 43.58 05/13/2024 9:23 AM CDT Plan of Treatment Health Maintenance Due Date Last Done Comments DTaP/Tdap/Td Vaccine (1 - Tdap) 1966 Hepatitis B Screening 02/02/1972 Zoster Vaccine (2 of 2) 02/08/2020 12/14/2019 Foot Exam 02/16/2021 02/17/2020, 03/13, 01/29/2017, Additional history exists Albumin Creatinine Ratio, Urine 05/28/2023 05/27/2022, 10/18/2021, 12/20/2020 Lipid Panel 08/10/2024 08/11/2023, 090 09/2021, 12/20/2020, Additional history exists Osteoporosis Screening-Bone Density Scan 09/25/2024 09/25/2022 Hemoglobin A1C 10/05/2024 04/07/2024, 1010/2023, 07/17/2023, Additional history exists Fall Risk Assessment 10/09/2024 10/10/2023, 07/18/2023, 09/30/2022, Additional history exists Well Visit 65+ 10/09/2024 10/10/2023, 03/14, 12/20/2020 Influenza Vaccine (Season Ended) 2024 12/17/2021, 12/01/2019, 12/23/2018, Additional history exists Colon Cancer Screening-Colonoscopy 11/10/2024 11/10/2014 Breast Cancer Screening-Mammogram 11/30/2024 12/01/2023, 11/10/2023, 02/19/2018, Additional history exists Dilated Eye Exam 04/21/2025 04/22/2023, , 05/18/2020, Additional history exists Depression Screening 04/23/2025 04/23/2024, 10/10/2023, 09/30/2022, Additional history exists eGFR 06/07/2025 06/07/2024, 04/0 04/2024, 04/28/2024, Additional history exists Colon Cancer Screening-CT Colonography Discontinued 11/10/2014 Colon Cancer Screening-DNA Stool Discontinued 11/11/19 15 Colon Cancer Screening-FIT Discontinued 11/10/2014 Colon Cancer Screening-Sigmoidoscopy Discontinued 11/10/2014 Hepatitis C Screening Completed 12/23/2019 Pneumococcal vaccine 65+ Completed 12/17/2021, 11/11 Medical Devices Implanted Type Area International Coordinator Device Identifier Shelf Expiration Date Model / Serial / Lot [id number] [id number] Angio-Seal Evolution 6fr .035in Guidewire Bypass Tube Suture - [id number] Implanted:Qty: 1 on 08/16/2019 by Chinedu Luther MD PhD at [facility] Collagen Daig Francisco/[employer] 03/12/2020 [id number] / / [id number] Medtronic Cardiac Rhythm Mgmt [id number] M[address] X[address] Bell Physiocurvdomingo Smartshock 32v33zx 2 Chamber - [id number] - [id number] Implanted:Qty: 1 on 03/08/2019 by Mt Collins DO at [facility] ICD Left: Heart Medtronic Inc 07/07/2020 [id number] / [id number] / Description:VF: 200bpm ATP d uring charginJ X 6 VT monitor: 171 [id number] Thoratec Corpheartmate 3 Left Ventricular Device Blood Pump - [id number] - [id number] Implanted:Qty: 1 on 08/24/2019 by Josette Ramirez MD at [facility] LVAD Left: Heart Thoratec Francisco 04/06/2022 [id number] / [id number] / Thoratec Francisco [id number] Heartmate 3 Kit Implant Sterile Latex Free - [id number] Implanted:Qty: 1 on 08/24/2019 by Josette Ramirez MD at [facility] LVAD Left: Heart Thoratec Francisco 03/25/2022 [id number] / / [id number], MLP-0209 02 [id number] Thoratec Corpgraft Outflow Lvad Heartmate 3 W-Bend Relief - [id number] Implanted:Qty: 1 on 08/24/2019 by Josette Ramirez MD at [facility] LVAD Left: Heart Thoratec Francisco 05/20/2021 [id number] / / [id number] Medtronic Cardiac Rhythm Mgmt [id number] Sprint Quattro Secure S 55cm Df-4 Tripolar Screw Defibrillator - [id number] - [id number] Implanted:Qty: 1 on 03/08/2019 by Rubén Davalos MD at [facility] Lead Left: Heart Medtronic Inc 11/23/2020 [id number] / [id number] / Medtronic Cardiac Rhythm Mgmt 5076-45 Capsurefix Novus 6.2fr 2mm 45cm Bipolar Screw In Implantable - [id number] - [id number] Implanted:Qty: 1 on 03/08/2019 by Mt Collins DO at [facility] Lead Left: Heart Medtronic Inc 01/22/2021 5076-45 / [id number] / White Vascular [id number] System Coronary Stent Xience Margareth Everolimus L15 Mm Od3.25 Mm Rapid Exchange - [id number] - [id number] Implanted:Qty: 1 on 09/15/2018 by Ray Mullins MD at [facility] Stent N/A: Coronary [employer] 06/09/2019 [id number] / [id number] / [id number] White Vascular [id number] System Coronary Stent Xience Margareth Everolimus L8 Mm Od3.5 Mm Rapid Exchange - [id number] - [id number] Implanted:Qty: 1 on 09/15/2018 by Ray Mullins MD at [facility] Stent N/A: Coronary [employer] 12/14/2018 [id number] / [id number] / [id number] Edúkame [id number] Cath Iab 6in 8fr 17.4mm Uli Statlock 2 Device Insertion Kit - [id number] - [id number] Implanted:Qty: 1 on 08/17/2019 by Richie Zapien MD at [facility] GET[employer]E [employer]STLE INC 03/01/2022 [id number] / [id number] / [id number] Bard Peripheral Vascular Ultraclip Bard 17ga 10cm 2 Trigger Permanent Ultrasound [id number] - [id number] Implanted:Qty: 1 on 12/08/2023 by Aime Schaefer DO at [facility] Right: Breast Bard Peripheral Vascular [id number] / / Procedures Procedure Name Priority Date/Time [...] POCT HEMOGLOBIN A1C Routine 04/07/2024 10:48 AM [employer] 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 Testing performed by: [facility], [address] [place] [address], [place]., [address] Blood 06/07/2024 11:3 9 AM CDT 06/07/2024 6:32 PM CDT us Rudolph Zhang MD LAB BLOOD ORDERABLES Final R esult [facility] ([facility]) 1 [facility] [place] [address] * (ABNORMAL) Differential, auto (06/07/2024 11:39 AM CDT) Neutrophil abs 5.44 1.50 - 6.50 K/cumm Comment:Testing performed by : [address] [address] Imm gran abs 0.02 0.00 - 0.10 K/cumm [facility] ([facility]) Comment:Testing performed by : [address], [address] Lymphocyte abs 2.98 0.80 - 3.30 K/cumm [facility] ([facility]) Comment:Testing performed by : [facility], [address] [place] [address], [address] Monocyte abs 1.06(H) 0.20 - 0.80 K/cumm [facility] ([facility]) Comment:Testing performed by : [facility], [address] [place] [address]., [address] Eosinophil abs 0.18 0.00 - 0.50 K/cumm [facility] ([facility]) Comment:Testing performed by : [address] [address] Basophil abs 0.08 0.00 - 0.10 K/cumm [facility] ([facility]) Comment:Testing performed by : [address] [address] Neutrophil pct 55.8 % [facility] ([facility]) Comment: Interpretive Data Percent cell count reference ranges are not reported, since discordance with absolute values may lead to misinterpretation of CBC data. Current Interpretive Data was last revised on 2017. Testing performed by: [address], [address] Imm gran pct 0.2 % [facility] ([facility]) Comment: Interpretive Data Percent cell count reference ranges are not reported, since discordance with absolute values may lead to misinterpretation of CBC data. Current Interpretive Data was last revised on 2017. Testing performed by: [facility], [address] [place] [address]., [address] Lymphocyte pct 30.5 % [facility] ([facility]) Comment: Interpretive Data Percent cell count reference ranges are not reported, since discordance with absolute values may lead to misinterpretation of CBC data. Current Interpretive Data was last revised on 2017. Testing performed by: [facility], [address] [place] [address]., [address] Monocyte pct 10.9 % [facility] ([facility]) Comment: Interpretive Data Percent cell count reference ranges are not reported, since discordance with absolute values may lead to misinterpretation of CBC data. Current Interpretive Data was last revised on 2017. Testing performed by: [facility], [address] [place] [address], [address] Eosinophil pct 1.8 % [facility] ([facility]) Comment: Interpretive Data Percent cell count reference ranges are not reported, since discordance with absolute values may lead to misinterpretation of CBC data. Current Interpretive Data was last revised on 2017. Testing performed by: [address] [address] Basophil pct 0.8 % [facility] ([facility]) Comment: Interpretive Data Percent cell count reference ranges are not reported, since discordance with absolute values may lead to misinterpretation of CBC data. Current Interpretive Data was last revised on 2017. Testing performed by: [address] [address] Blood 06/07/2024 11:3 9 AM CDT 06/07/2024 6:10 PM CDT us Rudolph Zhang MD LAB BLOOD ORDERABLES Final R esult [facility]EREDO (FCO) 1 [facility] [place] [address] * (ABNORMAL) CBC with auto differential (06/07/2024 11:39 AM CDT) WBC 9.76 3.80 - 9.90 K/cumm Comment:Testing performed by : [address], [address] Hgb 16.1(H) 11.9 - 15.5 g/dL [facility] ([facility]) Comment:Testing performed by : [address], [address] Hct 51.8(H) 35.6 - 45.5 % [facility] ([facility]) Comment:Testing performed by : [address], [address] Plt 184 150 - 400 K/cumm [facility] ([facility]) Comment:Testing performed by : [address], [address] MPV 12.0 9.1 - 12.3 fL [facility] (CFO) Comment:Testing performed by : [address], [address] RBC 5.38(H) 3.90 - 5.20 M/cumm [facility] ([facility]) Comment:Testing performed by : [address], [address] MCV 96.3 81.3 - 96.4 fL [facility] ([facility]) Comment:Testing performed by : [address], [address] MCH 29.9 27.1 - 33.3 pg [facility] ([facility]) Comment:Testing performed by : [address], [address] MCHC 31.1(L) 32.3 - 35.7 g/dL [facility] ([facility]) Comment:Testing performed by : [address], [address] RDW CV 17.3(H) 11.1 - 14.9 % [facility] ([facility]) Comment:Testing performed by : [address], [address] RDW SD 61.1(H) 35.7 - 48.1 fL [facility] ([facility]) Comment:Testing performed by : [address] [address] NRBC abs 0.00 0.00 - 0.01 K/cumm [facility] (FCO) Comment:Testing performed by : [address] [address] Blood 06/07/2024 11:3 9 AM CDT 06/07/2024 6:10 PM CDT us Rudolph Zhang MD LAB BLOOD ORDERABLES Final R esult Performing Organization Address City/State/[facility] Co de Phone Number TOY FIGUEREDO (SELMA) 1 [facility] [place] [address] * (ABNORMAL) Protime-INR (06/07/2024 11:39 AM CDT) PT 23.1(H) 9.7 - 13.0 sec Comment:Testing performed by : [address], [address] INR 2.11(H) 0.90 - 1.20 TOY FIG[facility] (FCO) Comment: Interpretive data Oral anticoagulant therapeutic ranges: Venous thromboembolism prophylaxis or treatment: 2.0-3.0 CARDIOLOGY Standard range: 2.0-3.0 High-intensity range: 2.5-3.5 Refer to indication-specific guidelines for appropriate target ranges for prosthetic heart valve replacement. Current interpretive data was last revised on 2019. Testing performed by: [facility], [address] [place] [address]., [address] Blood 06/07/2024 11:3 9 AM CDT 06/07/2024 6:10 PM CDT us Rudolph Zhang MD LAB BLOOD ORDERABLES Final R esult [facility] (SELMA) 1 [facility] [place] [address] * (ABNORMAL) Lactate dehydrogenase (LD) (06/07/2024 11:39 AM CDT) Lactate dehydrogenase (LDH) 296(H) 100 - 250 Units/L Comment:Testing performed by : [facility], [address] [place] [address]., [address] Blood 06/07/2024 11:3 9 AM CDT 06/07/2024 6:10 PM CDT Rudolph Zhang MD LAB BLOOD ORDERABLES Final R esult [facility] ([facility]) 1 [facility] [place] [address] * (ABNORMAL) Comprehensive metabolic panel (06/07/2024 11:39 AM CDT) [facility] Sodium 138 135 - 145 mmol/L Comment:Testing performed by : [facility], [address] [place] [address], [address] Potassium, pl 4.3 3.3 - 4.9 mmol/L [facility] ([facility]) Comment:Testing performed by : [facility], [address] [place] [address], [address] Chloride 95(L) 97 - 110 mmol/L [facility] ([facility]) Comment:Testing performed by : [facility], [address] [place] [address], [address] CO2 27 22 - 32 mmol/L [facility] ([facility]) Comment:Testing performed by : [address] [address] Anion gap 16(H) 2 - 15 mmol/L [facility] ([facility]) Comment:Testing performed by : [address], [address] BUN 30(H) 6 - 25 mg/dL [facility] ([facility]) Comment:Testing performed by : [address], [address] Creatinine 1.73(H) 0.60 - 1.10 mg/dL [facility] ([facility]) Comment: Icteric sample, test results may be affected. Testing performed by: [address], [address] Glucose 129 70 - 199 mg/dL [facility] ([facility]) Comment: Interpretive Data Fasting glucose [...] was last revised 2022. Testing performed by: [facility], [address] [place] [address]., [address] Calcium 10.1 8.5 - 10.3 mg/dL [facility] ([facility]) Comment:Testing performed by : [address], [address] Bilirubin, total 1.7(H) 0.1 - 1.2 mg/dL [facility] ([facility]) Comment:Testing performed by : [address], [address] Protein, pl 7.7 6.5 - 8.5 g/dL [facility] ([facility]) Comment:Testing performed by : [address], [address] Albumin 4.3 3.5 - 5.0 g/dL [facility] ([facility]) Comment:Testing performed by : [address], [address] Alk phos 121 40 - 130 Units/L [facility] ([facility]) Comment:Testing performed by : [address], [address] ALT 26 7 - 45 Units/L [facility] ([facility]) Comment:Testing performed by : [address], [address] AST 41 10 - 45 Units/L [facility] ([facility]) Comment:Testing performed by : [address], [address] Blood 06/07/2024 11:3 9 AM CDT 06/07/2024 6:10 PM CDT Rudolph Zhang MD LAB BLOOD ORDERABLES Final R esult Performing Organization Address City/[facility] Co de Phone Number TOY FIGUEREDO (SELMA) 1 [facility] [place] [address] * (ABNORMAL) eGFR (05/13/2024 5:34 PM CDT) [...] was last reviewed 2020. Testing performed by: [address] [address] Blood 05/13/2024 5:34 PM CDT 05/13/2024 5:41 PM CDT us Rudolph Zhang MD LAB BLOOD ORDERABLES Final R esult [facility]ER[facility] (FCO) 1 [facility] [address] * (ABNORMAL) Differential, auto (05/13/2024 5:34 PM CDT) Neutrophil abs 7.12(H) 1.50 - 6.50 K/cumm Comment:Testing performed by : [address] [address] Imm gran abs 0.03 0.00 - 0.10 K/cumm [facility] ([facility]) Comment:Testing performed by : [facility], [address] [place] [address]., [address] Lymphocyte abs 2.87 0.80 - 3.30 K/cumm [facility] ([facility]) Comment:Testing performed by : [facility], [address] [place] [address]., [address] Monocyte abs 1.27(H) 0.20 - 0.80 K/cumm [facility] ([facility]) Comment:Testing performed by : [facility], [address] [place] [address]., [address] Eosinophil abs 0.19 0.00 - 0.50 K/cumm [facility] ([facility]) Comment:Testing performed by : [facility], [address] [place] [address]., [address] Basophil abs 0.08 0.00 - 0.10 K/cumm [facility] ([facility]) Comment:Testing performed by : [facility], [address] [place] [address]., [address] Neutrophil pct 61.6 % [facility] ([facility]) Comment: Interpretive Data Percent cell count reference ranges are not reported, since discordance with absolute values may lead to misinterpretation of CBC data. Current Interpretive Data was last revised on 2017. Testing performed by: [facility], [address] [place] [address]., [address] Imm gran pct 0.3 % [facility] ([facility]) Comment: Interpretive Data Percent cell count reference ranges are not reported, since discordance with absolute values may lead to misinterpretation of CBC data. Current Interpretive Data was last revised on 2017. Testing performed by: [address] [address] Lymphocyte pct 24.8 % [facility] ([facility]) Comment: Interpretive Data Percent cell count reference ranges are not reported, since discordance with absolute values may lead to misinterpretation of CBC data. Current Interpretive Data was last revised on 2017. Testing performed by: [address] [address] Monocyte pct 11.0 % [facility] ([facility]) Comment: Interpretive Data Percent cell count reference ranges are not reported, since discordance with absolute values may lead to misinterpretation of CBC data. Current Interpretive Data was last revised on 2017. Testing performed by: [facility], [address] [place] [address]., [address] Eosinophil pct 1.6 % SHAVONNE FIGUEREDO (FCO) Comment: Interpretive Data Percent cell count reference ranges are not reported, since discordance with absolute values may lead to misinterpretation of CBC data. Current Interpretive Data was last revised on 2017. Testing performed by: [facility], [address] [place] [address], [address] Basophil pct 0.7 % TOY FIGUERED[facility] (FCO) Comment: Interpretive Data Percent cell count reference ranges are not reported, since discordance with absolute values may lead to misinterpretation of CBC data. Current Interpretive Data was last revised on 2017. Testing performed by: [address], [address] Blood 05/13/2024 5:34 PM CDT 05/13/2024 5:34 PM CDT us Rudolph Zhang MD LAB BLOOD ORDERABLES Final R esult TO[facility] (FCO) 1 [facility] [place] [address] * (ABNORMAL) CBC with auto differential (05/13/2024 5:34 PM CDT) WBC 11.56(H) 3.80 - 9.90 K/cumm Comment:Testing performed by : [address] [address] Hgb 16.0(H) 11.9 - 15.5 g/dL TOY FIGUERED[facility] (FCO) Comment:Testing performed by : [address], [address] Hct 51.9(H) 35.6 - 45.5 % TOY FIGUER[facility] (FCO) Comment:Testing performed by : [address], [address] Plt 168 150 - 400 K/cumm [facility] ([facility]) Comment:Testing performed by : [facility], [address] [place] [address], [address] MPV 12.2 9.1 - 12.3 fL [facility] ([facility]) Comment:Testing performed by : [facility], [address] [place] [address], [address] RBC 5.41(H) 3.90 - 5.20 M/cumm [facility] ([facility]) Comment:Testing performed by : [facility], [address] [place] [address], [address] MCV 95.9 81.3 - 96.4 fL [facility] ([facility]) Comment:Testing performed by : [facility], [address] [place] [address], [address] MCH 29.6 27.1 - 33.3 pg [facility] ([facility]) Comment:Testing performed by : [address], [address] MCHC 30.8(L) 32.3 - 35.7 g/dL [facility] ([facility]) Comment:Testing performed by : [address], [address] RDW CV 18.2(H) 11.1 - 14.9 % [facility] ([facility]) Comment:Testing performed by : [address], [address] RDW SD 62.0(H) 35.7 - 48.1 fL [facility] ([facility]) Comment:Testing performed by : [address], [address] NRBC abs 0.02(H) 0.00 - 0.01 K/cumm [facility] ([facility]) Comment:Testing performed by : [address], [address] Blood 05/13/2024 5:34 PM CDT 05/13/2024 5:34 PM CDT us Rudolph Zhang MD LAB BLOOD ORDERABLES Final R esult [facility] ([facility]) 1 [facility] [place] [address] * (ABNORMAL) Protime-INR (05/13/2024 5:34 PM CDT) PT 27.3(H) 9.7 - 13.0 sec Comment:Testing performed by : [facility], [address] [place] [address], [address] INR 2.48(H) 0.90 - 1.20 TOY FIGUEREDO (FCO) Comment: Interpretive data Oral anticoagulant therapeutic ranges: Venous thromboembolism prophylaxis or treatment: 2.0-3.0 CARDIOLOGY Standard range: 2.0-3.0 High-intensity range: 2.5-3.5 Refer to indication-specific guidelines for appropriate target ranges for prosthetic heart valve replacement. Current interpretive data was last revised on 2019. Testing performed by: [address], [address] Blood 05/13/2024 5:34 PM CDT 05/13/2024 5:34 PM CDT us Rudolph Zhang MD LAB BLOOD ORDERABLES Final R esult CONIGHADA FIGUEREDO (SELMA) 1 [place] [address] * (ABNORMAL) Lactate dehydrogenase (LD) (05/13/2024 5:34 PM CDT) Lactate dehydrogenase (LDH) 358(H) 100 - 250 Units/L Comment: Hemolysis present. Results may be affected. Testing performed by: [address], [address] Blood 05/13/2024 5:34 PM CDT 05/13/2024 5:34 PM CDT Rudolph Zhang MD LAB BLOOD ORDERABLES Final R esult TO[facility] FIGUEREDO (FCO) 1 [place] [address] * (ABNORMAL) Comprehensive metabolic panel (05/13/2024 5:34 PM CDT) Sodium 135 135 - 145 mmol/L Comment:Testing performed by : [address] [address] Potassium, pl 4.9 3.3 - 4.9 mmol/L [facility] ([facility]) Comment:Testing performed by : [address] [address] Chloride 92(L) 97 - 110 mmol/L [facility] ([facility]) Comment:Testing performed by : [facility], [address] [place] [address]., [address] CO2 27 22 - 32 mmol/L [facility] ([facility]) Comment:Testing performed by : [address], [address] Anion gap 16(H) 2 - 15 mmol/L [facility] ([facility]) Comment:Testing performed by : [address], [address] BUN 38(H) 6 - 25 mg/dL [facility] ([facility]) Comment:Testing performed by : [address], [address] Creatinine 1.82(H) 0.60 - 1.10 mg/dL [facility] ([facility]) Comment: Icteric sample, test results may be affected. Testing performed by: [address], [address] Glucose 170 70 - 199 mg/dL [facility] ([facility]) [...] was last revised 2022. Testing performed by: [address], [address] Calcium 10.1 8.5 - 10.3 mg/dL [facility] ([facility]) Comment:Testing performed by : [facility], [address] [place] [address]., [address] Bilirubin, total 1.9(H) 0.1 - 1.2 mg/dL [facility] ([facility]) Comment:Testing performed by : [facility], [address] [place] [address], [address] Protein, pl 7.8 6.5 - 8.5 g/dL [facility] ([facility]) Comment:Testing performed by : [facility], [address] [place] [address], [address] Albumin 4.4 3.5 - 5.0 g/dL [facility] ([facility]) Comment:Testing performed by : [facility], [address] [place] [address], [address] Alk phos 145(H) 40 - 130 Units/L [facility] ([facility]) Comment:Testing performed by : [facility], [address] [place] [address], [address] ALT 33 7 - 45 Units/L [facility] ([facility]) Comment:Testing performed by : [facility], [address] [place] [address], [address] AST 42 10 - 45 Units/L [facility] ([facility]) Comment:Testing performed by : [facility], [address] [place] [address], [address] Blood 05/13/2024 5:34 PM CDT 05/13/2024 5:34 PM CDT us Rudolph Zhang MD LAB BLOOD ORDERABLES Final R esult [facility] ([facility]) 1 [facility] [place] [address] * (ABNORMAL) eGFR (04/28/2024 10:57 AM CDT) [...] was last reviewed 2020. Testing performed by: [address] [address] Blood 04/28/2024 10:5 7 AM CDT 04/28/2024 7:07 PM CDT us Rudolph Zhang MD LAB BLOOD ORDERABLES Final R esult TOY FIGUEREDO (SELMA) 1 [facility] [place] [address] * (ABNORMAL) Differential, auto (04/28/2024 10:57 AM CDT) Neutrophil abs 6.1 1.5 - 6.5 K/cumm Comment:Testing performed by : [facility], [address] [place] [address]., [address] Imm gran abs 0.0 0.0 - 0.1 K/cumm [facility] ([facility]) Comment:Testing performed by : [address] [address] Lymphocyte abs 2.8 0.8 - 3.3 K/cumm [facility] ([facility]) Comment:Testing performed by : [address] [address] Monocyte abs 1.2(H) 0.2 - 0.8 K/cumm [facility] ([facility]) Comment:Testing performed by : [address] [address] Eosinophil abs 0.3 0.0 - 0.5 K/cumm [facility] ([facility]) Comment:Testing performed by : [facility], [address] [place] [address]., [id number] Basophil abs 0.1 0.0 - 0.1 K/cumm [facility] ([facility]) Comment:Testing performed by : [facility], [address] [place] [address]., [address] Neutrophil pct 58.6 % [facility] ([facility]) Comment: Interpretive Data Percent cell count reference ranges are not reported, since discordance with absolute values may lead to misinterpretation of CBC data. Current Interpretive Data was last revised on 2017. Testing performed by: [facility], [address] [place] [address]., [address] Imm gran pct 0.3 % [facility] ([facility]) Comment: Interpretive Data Percent cell count reference ranges are not reported, since discordance with absolute values may lead to misinterpretation of CBC data. Current Interpretive Data was last revised on 2017. Testing performed by: [address] [address] Lymphocyte pct 26.6 % [facility] ([facility]) Comment: Interpretive Data Percent cell count reference ranges are not reported, since discordance with absolute values may lead to misinterpretation of CBC data. Current Interpretive Data was last revised on 2017. Testing performed by: [facility], [address] [place] [address]., [address] Monocyte pct 11.4 % [facility] ([facility]) Comment: Interpretive Data Percent cell count reference ranges are not reported, since discordance with absolute values may lead to misinterpretation of CBC data. Current Interpretive Data was last revised on 2017. Testing performed by: [address] [address] Eosinophil pct 2.4 % [facility] ([facility]) Comment: Interpretive Data Percent cell count reference ranges are not reported, since discordance with absolute values may lead to misinterpretation of CBC data. Current Interpretive Data was last revised on 2017. Testing performed by: [address] [address] Basophil pct 0.7 % [facility] ([facility]) Comment: Interpretive Data Percent cell count reference ranges are not reported, since discordance with absolute values may lead to misinterpretation of CBC data. Current Interpretive Data was last revised on 2017. Testing performed by: [address] [address] Blood 04/28/2024 10:5 7 AM CDT 04/28/2024 6:20 PM CDT Rudolph Zhang MD LAB BLOOD ORDERABLES Final R esult [facility] ([facility]) 1 [facility] [place] [address] * (ABNORMAL) CBC with auto differential (04/28/2024 10:57 AM CDT) WBC 10.4(H) 3.8 - 9.9 K/cumm Comment:Testing performed by : [address], [address] Hgb 15.4 11.9 - 15.5 g/dL [facility] ([facility]) Comment:Testing performed by : [address], [address] Hct 51.6(H) 35.6 - 45.5 % [facility] ([facility]) Comment:Testing performed by : [address], [address] Plt 197 150 - 400 K/cumm [facility] ([facility]) Comment:Testing performed by : [address], [address] MPV 12.1 9.1 - 12.3 fL [facility] ([facility]) Comment:Testing performed by : [address], [address] RBC 5.19 3.90 - 5.20 M/cumm [facility] ([facility]) Comment:Testing performed by : [address], [address] MCV 99.4(H) 81.3 - 96.4 fL [facility] ([facility]) Comment:Testing performed by : [address], [address] MCH 29.7 27.1 - 33.3 pg [facility]Y [facility]ER[facility] (FCO) Comment:Testing performed by : [facility], [address] [place] [address], [address] MCHC 29.8(L) 32.3 - 35.7 g/dL TOY FIGUERED[facility] (FCO) Comment:Testing performed by : [facility], [address] [place] [address], [address] RDW CV 17.5(H) 11.1 - 14.9 % [facility] (FCO) Comment:Testing performed by : [facility], [address] [place] [address], [address] RDW SD 63.6(H) 35.7 - 48.1 fL [facility]Y FIG[facility]ER[facility] (FCO) Comment:Testing performed by : [facility], [address] [place] [address], [address] NRBC abs 0.00 0.00 - 0.01 K/cumm TOY FIGUERED[facility] (FCO) Comment:Testing performed by : [facility], [address] [place] [address], [address] Blood 04/28/2024 10:5 7 AM CDT 04/28/2024 6:20 PM CDT Rudolph Zhang MD LAB BLOOD ORDERABLES Final R esult TOY FIGUERED[facility] (SELMA) 1 [facility] [place] [address] * (ABNORMAL) Protime-INR (04/28/2024 10:57 AM CDT) PT 24.9(H) 9.7 - 13.0 sec Comment:Testing performed by : [address], [address] INR 2.27(H) 0.90 - 1.20 TOY FIGUER[facility] (FCO) Comment: Interpretive data Oral anticoagulant therapeutic ranges: Venous thromboembolism prophylaxis or treatment: 2.0-3.0 CARDIOLOGY Standard range: 2.0-3.0 High-intensity range: 2.5-3.5 Refer to indication-specific guidelines for appropriate target ranges for prosthetic heart valve replacement. Current interpretive data was last revised on 2019. Testing performed by: [facility], [address] [place] [address]., [address] Blood 04/28/2024 10:5 7 AM CDT 04/28/2024 6:20 PM CDT Rudolph Zhang MD LAB BLOOD ORDERABLES Final R esult Performing Organization Address [facility] Co de Phone Number TOY FIGUEREDO (SELMA) 1 [place] [address] * (ABNORMAL) Lactate dehydrogenase (LD) (04/28/2024 10:57 AM CDT) Pathologist [facility] [place] Lactate dehydrogenase (LDH) 330(H) 100 - 250 Units/L Comment: Hemolysis present. Results may be affected. Testing performed by: [facility], [address] [place] [address], [address] Blood 04/28/2024 10:5 7 AM CDT 04/28/2024 6:20 PM CDT Rudolph Zhang MD LAB BLOOD ORDERABLES Final R [facility] Performing Organization Address [facility] Co de Phone Number TOY FIGUEREDO (FCO) [address] [place] [address] * (ABNORMAL) Comprehensive metabolic panel (04/28/2024 10:57 AM CDT) Pathologist [facility] Sodium 138 135 - 145 mmol/L Comment:Testing performed by : [address] [address] Potassium, pl 4.8 3.3 - 4.9 mmol/L [facility] ([facility]) Comment:Testing performed by : [address] [address] Chloride 96(L) 97 - 110 mmol/L [facility] ([facility]) Comment:Testing performed by : [address], [address] CO2 28 22 - 32 mmol/L [facility] ([facility]) Comment:Testing performed by : [address] [address] Anion gap 14 2 - 15 mmol/L [facility] ([facility]) Comment:Testing performed by : [address] [address] BUN 31(H) 6 - 25 mg/dL [facility] ([facility]) Comment:Testing performed by : [address] [address] Creatinine 1.42(H) 0.60 - 1.10 mg/dL [facility] ([facility]) Comment:Testing performed by : [facility], [address] [place] [address]., [address] Glucose 75 70 - 199 mg/dL CERNER [...] was last revised 2022. Testing performed by: [address] [address] Calcium 9.7 8.5 - 10.3 mg/dL [facility] ([facility]) Comment:Testing performed by : [address] [address] Bilirubin, total 1.2 0.1 - 1.2 mg/dL [facility] ([facility]) Comment:Testing performed by : [address] [address] Protein, pl 7.6 6.5 - 8.5 g/dL [facility] ([facility]) Comment:Testing performed by : [address] [address] Albumin 4.4 3.5 - 5.0 g/dL [facility] ([facility]) Comment:Testing performed by : [facility], [address], [place]., [address] Alk phos 134(H) 40 - 130 Units/L [facility] ([facility]) Comment:Testing performed by : [facility], [address] [place] [address]., [address] ALT 28 7 - 45 Units/L [facility] ([facility]) Comment:Testing performed by : [facility], [address] [place] [address]., [address]597 AST 35 10 - 45 Units/L [facility] ([facility]) Comment:Testing performed by : [facility], [address] [place] [address]., [address] Blood 04/28/2024 10:5 7 AM CDT 04/28/2024 6:20 PM CDT us Rudolph Zhang MD LAB BLOOD ORDERABLES Final R esult [facility] ([facility]) 1 [facility] [place] [address] * POCT hemoglobin A1c (04/07/2024 10:48 AM [employer]) Hemoglobin A1C, POC 6.2 4.0 - 5.6 % Blood 04/07/2024 10:4 8 AM [employer] us Hay Calvo MD POINT OF CARE [...] last revised on 2017. Testing performed by: [facility], [address] [place] [address]., [address] Triglycerides 224(H) <=149 mg/dL [facility] (FCO) [...] last revised on 2017. Testing performed by: [facility], [address] [place] [address]., [address] HDL 33(L) >=40 mg/dL [facility] FIGUER[facility] (FCO) Comment: Interpretive Data [...] last revised on 2017. Testing performed by: [facility], [address] [place] [address]., [address] LDL, calculated 41 <=129 mg/dL [facility]UER[facility] (FCO) Comment: Interpretive Data [...] last revised on 2017. Testing performed by: [address] [address] Non-HDL Cholesterol 86 mg/dL TOY FIGUEREDO (FCO) Comment: Interpretive Data [...] last revised on 2017. Testing performed by: [facility], [address] [place] [address]., [address] Chol/HDL ratio 4 [facility] (FCO) Comment:Testing performed by : [address] [address] Blood 08/11/2023 11:0 4 AM CDT 08/11/2023 6:30 PM CDT Narrative TOY FIGUEREDO (FCO) - 08/11/2023 7:06 PM CDT These lab test should be done fasting. This means do not eat or drink for at least 12 hours prior to getting your blood drawn. us Hay Calvo MD LAB BLOOD ORDERABLES Final Resu lt TOY [facility] ([facility]) 1 [facility] [place] [address] * (ABNORMAL) DIABETES EYE EXAM (03/12/2023) SCRIBED DIABETIC DILATED EYE EXAM Abnormal Historical Provider HEALTH MAINTENANCE Final Result * Dexa Axial Skeleton Bone Density 1 or 2 Site (09/25/2022 2:02 PM CDT) Anatomical Region Laterality Modality Body N/A Radiographic Sera ging Narrative 09/27/2022 8:17 AM CDT Patient Name: Jose Daniel Martin Date of : 1955 Date of scan: 09/25/2022 Bone mineral density was performed on a HoloE Ink Discovery Densitometer. Based on machine cross-calibration and [...] by the International Society of Clinical Densitometry. [id number] us Hay Calvo MD IM DXA PROCEDURES Final Result * (ABNORMAL) Albumin Creatinine Ratio, Urine (05/27/2022 4:05 PM CDT) Albumin Ur <12.0 mg/L TOY Das (FCO) Comment: Interpretive Data No reference range established. Current interpretive data was last revised 2018. Testing performed by: [address] [address] Creatinine Ur 37.0 mg/dL TOY FIGUEREDO (FCO) Comment: Interpretive Data No reference range established. Current interpretive data was last revised 2018. Testing performed by: [address] [address] Albumin Creatinine Ratio, Ur <32(H) 1 - 29 mg/g TOY FIGUERED[facility] ([facility]CO) Comment: Unable to calculate Testing performed by: [address] [address] Urine 05/27/2022 4:05 PM CDT 05/27/2022 4:06 PM CDT us Hay Calvo MD LAB URINE ORDERABLES Final Resu lt TOY [facility] (SEL[facility]) 1 [facility] [place] [address] * Hepatitis panel, acute (12/23/2019 4:10 PM [employer]) Hep A IgM Nonreactive Nonreactive [facility] Comment: Interpretive Data: If Hep A IgM Ab is reported as Equivocal, a new sample should be drawn in two weeks for testing. Current interpretive data was last revised on 19. Hep B core IgM Nonreactive Nonreactive [facility] Comment: Interpretive Data If HepB Core IgM Ab is reported as Equivocal, a new sample should be drawn in two weeks for testing. Current interpretive data was last revised on 19. Hep C Ab Nonreactive Nonreactive [facility] Comment:Antibodies to HCV no t detected. Does NOT exclude the possibility of recent exposure to HCV. HepBsAg Nonreactive Nonreactive [facility] Blood specimen (specimen) 12/23/2019 4:10 PM [employer] 12/23/2019 4:52 PM [employer] Maeve Kuo MD LAB MICROBIOLOGY - GENERAL O RDERABLES Edited Result - Final Performing Organization Address City/[facility]/ZIP Co de Phone Number TOY GALEANO [facility] Department [place] [address] * DIABETES FOOT EXAM (01/29/2017) Pathologist [facility] Diabetic Foot Exam Unknown Historical Provider HEALTH MAINTENANCE Final Result * COLONOSCOPY REPORT (11/10/2014) Anatomical Region Laterality Modality Other Narrative 11/10/2014 Ordered by an unspecified provider. Historical Surendra MALIN GI PROCEDURE ORDERABLES F inal Result from Last 3 Months or Most Recently Relevant to Health Maintenance Insurance MEDICARE [employer]ICARE [employer] [place] [employer]ICARE [employer] [employer] MEDICARE [facility] MEDICARE [facility] Advance Directives For more information, please contact: [phone] * Full Code (Latest Code Status on [...] 9:45 AM 10/22/2019 3:38 PM Care Teams Gill Tender Relationship Specialty Start Date End Date Scotty Oneil MD [address] [place] [address] PCP - General 05/10/16 Maeve Multani MD [address] [place] [address] Surgeon Breast Surgery 10/27/17 Castillo Hollis MD [address] [facility] [address] [place] [address] Radiation Oncology 10/27/17 Aleta Cevallos, RN [address] [place] [address] VAD Coordinator Manager Strategic Alliances 09/13/19 Josette Ramirez MD [address] [facility] [address] [place] [address] Surgeon Cardiothoracic Surgery 09/15/19 Miscellaneous, Not In File 09/15/19
--- OUTSIDE RECORDS SUMMARY | 2024-07-07 10:14 | XMS_ITS ---
Author Organization [facility] Address [address] [place] [address] Care Team Providers Care Front Desk Attendant Name Role Phone Scotty Oneil MD Primary Care Provider [phone] Maeve Multani MD Unavailable [phone] Castillo Hollis MD Unavailable Aleta Cevallos RN Unavailable Josette Ramirez MD Unavailable [phone] Miscellaneous, Not In File Unavailable Unava ilable Active Problems Problem Noted Date Diagnosed Date [...] ceftriaxone and follow up urine cultures from [facility] -culture has grown Proteus -ceftriaxone 2 [...] ceftriaxone and follow up urine cultures from [facility] -ceftriaxone 2 g daily transitioned to [...] 02/13/2022 Assessment & Plan (02/14/2022 12:57 PM BOX TENDER): Patient states she was feeling weak and her wheelchair was only locked on one side which caused her to lose her balance and have a mechanical fall (no loss of consciousness) -Medtr[employer] ICD interrogation-no arrhythmias -PT/OT evaluated the patient Spo2 96% on room air with activity. pt denied SOB Assessment & Plan (02/13/2022 5:29 PM BOX TENDER): Patient states she was feeling weak and her wheelchair was only locked on one side which caused her to lose her balance and have a mechanical fall (no loss of consciousness) -Medtronic ICD interrogation-no arrythmias Closed nondisplaced fracture of surgical neck of right humerus 02/12/2022 Assessment & Plan (02/15/2022 9:22 AM BOX TENDER): In the setting of a mechanical fall [...] evaluations Assessment & Plan (02/14/2022 12:34 PM BOX TENDER): In the setting of a mechanical fall [...] evaluations Assessment & Plan (02/13/2022 5:40 PM BOX TENDER): In the setting of a mechanical fall [...] 02/12/2022 Assessment & Plan (02/14/2022 12:59 PM BOX TENDER): -Serum Cr currently at baseline -Daily BMPs -Avoid nephrotoxins Assessment & Plan (02/13/2022 5:01 PM BOX TENDER): -Serum Cr currently at baseline -Daily BMPs [...] symptoms. Assessment & Plan (02/14/2022 12:59 PM BOX TENDER): -Continue home Pregabalin Assessment & Plan (02/13/2022 5:01 PM BOX TENDER): -Continue home Pregabalin Left ventricular assist device [...] overload. Assessment & Plan (02/15/2022 9:21 AM BOX TENDER): -Paroxysmal atrial fibrillation but currently in sinus rhythm -Continue home Metoprolol for rate control -Continue warfarin for AC (INR at 2.3) -Monitor on telemetry and replete serum electrolytes for a goal K >4.0 and Mg >2.0 Assessment & Plan (02/14/2022 12:31 PM BOX TENDER): -Paroxysmal atrial fibrillation but currently in sinus rhythm -Continue home Metoprolol for rate control -Continue warfarin for AC (INR at 2.3) -Monitor on telemetry and replete serum electrolytes for a goal K >4.0 and Mg >2.0 Assessment & Plan (02/13/2022 5:09 PM BOX TENDER): -Paroxysmal atrial fibrillation but currently in sinus [...] -telemetry Assessment & Plan (02/15/2022 9:23 AM BOX TENDER): S/p HeartMate 3 implanted 08/24/2019 (DT) -LVAD functioning appropriately without alarms -INR currently 3.2 (INR goal 2.0-3.0) -Continue warfarin 3 mg daily and 2 mg on Friday and Friday -Daily INRs Assessment & Plan (02/14/2022 12:58 PM BOX TENDER): S/p HeartMate 3 implanted 08/24/2019 -LVAD functioning appropriately without alarms -INR currently 2.3 (INR goal 2.0-3.0) -Continue warfarin 3 mg daily and 2 mg on Friday and Friday -Daily INRs Assessment & Plan (02/13/2022 5:24 PM BOX TENDER): S/p HeartMate 3 implanted 08/24/2019 -LVAD functioning [...] (08/16/2019): Added automatically from request for surgery [id number] Assessment & Plan (02/15/2022 9:18 AM BOX TENDER): ACC/AHA stage D heart failure secondary to [...] ) Assessment & Plan (02/14/2022 12:32 PM BOX TENDER): ACC/AHA stage D heart failure secondary to [...] telemetry Assessment & Plan (02/13/2022 5:24 PM BOX TENDER): ACC/AHA stage D heart failure secondary to [...] (08/17/2019): Added automatically from request for surgery [id number] Hx of adenomatous colonic polyps 07/09/2019 ICD [...] mobility and excoriated perineum - Cefepime day 05/17 Assessment & Plan (09/12/2019 2:30 PM CDT): [...] 03/09/2019 Assessment & Plan (03/09/2019 9:11 AM BOX TENDER): S/p Vanc x 2 Will discharge on doxy Cardiac arrest with ventricular fibrillation Assessment & Plan (03/09/2019 9:12 AM BOX TENDER): - Admitted 02/24 following Vfib arrest. Required chest compressions, defibrillation and epinephrine - [facility] 02/24 with widely patent stents in the LAD and obtuse marginal branch and unchanged CAD from prior [facility] in 09/2018 - Was not cooled. Now back at baseline mental status. - Cardiac arrest felt to be due to arrhythmia in the setting of acute on chronic CHF - Was on amiodarone for ectopy earlier this admission. Now discontinued. - Patient not willing to repeat cMRI - S/p ICD placement Assessment & Plan (03/02/2019 6:23 PM BOX TENDER): Unable to view telemetry in the ED showing ventricular fibrillation. Patient previously seen by Dr. De La Paz for SVT where possible SVT ablation had been discussed. S/p multiple rounds of CPR, epinephrine, amiodarone, defibrillation. Per hemodialysis lab technician, most likely 2/2 acute on chronic CHF, [...] (09/03/2018): Added automatically from request for surgery [id number] NSTEMI (non-ST elevated myocardial infarction) 0 08/25/2018 Overview (08/25/2018): Added automatically from request for surgery [id number] SVT (supraventricular tachycardia) 08/13/2018 Assessment & Plan [...] to have any extensive cardiac workup in [facility] and would like to have a [...] apnea Assessment & Plan (02/15/2022 9:16 AM BOX TENDER): Continue nocturnal CPAP Assessment & Plan (02/14/2022 12:58 PM BOX TENDER): Continue nocturnal CPAP Assessment & Plan (02/12/2022 9:21 PM BOX TENDER): Nocturnal CPAP Assessment & Plan (09/01/2019 11:41 [...] 03/31/2015 Assessment & Plan (03/05/2019 11:38 AM BOX TENDER): Improved - R sided, worsened with inspiration, reproduced with palpation - Likely MSK chest pain due to chest compressions. CXR with no obvious rib fractures. - Lidocaine patch, PRN Tylenol Triple vessel coronary artery disease 03/31/2015 Assessment & Plan (02/15/2022 9:17 AM BOX TENDER): History of coronary artery disease complicated by NSTEMI and VF arrest in February of 2019 and multiple prior PCIs -Currently without any angina or equivalent symptoms -Continue aspirin 81 mg daily and Crestor 40 mg daily -continue aggressive risk factor modification Assessment & Plan (02/14/2022 12:59 PM BOX TENDER): History of coronary artery disease complicated by NSTEMI and VF arrest in February of 2019 and multiple prior PCIs -Currently without any angina or equivalent symptoms -Continue aspirin 81 mg daily and Crestor 40 mg daily Assessment & Plan (02/13/2022 5:23 PM BOX TENDER): History of coronary artery disease complicated by [...] plavix Assessment & Plan (03/03/2019 12:24 AM BOX TENDER): - [facility] 02/24/2019 with widely patent stents in LAD [...] 02/12/2023 Assessment & Plan (02/15/2022 9:16 AM BOX TENDER): -Poorly controlled, last A1c 10.4 at time [...] check Assessment & Plan (02/14/2022 12:59 PM BOX TENDER): -Poorly controlled, last A1c 10.4 -Endocrine consulted, [...] -Accuchecks Assessment & Plan (02/13/2022 5:40 PM BOX TENDER): -Poorly controlled, last A1c 10.4 -Endocrine consulted, [...] diet Assessment & Plan (03/03/2019 12:35 AM BOX TENDER): - A1c 6.9% 02/11/2019 - Home regimen: Metformin 1000 mg BID, NPH 35 units BID, lispro 50 unites total daily - Inpatient regimen: NPH 27 units BID, lispro 16 units TID with meals, HDSSI Assessment & Plan (03/02/2019 6:25 PM BOX TENDER): A1c on 02/11/2019 was 6.9. At home, [...] episode with trops 0.31, presented to her neon installer office on 08/20, diagnosed as NSTEMI -cath [...] 11/07/2011 Assessment & Plan (02/15/2022 9:08 AM BOX TENDER): -Continue home Crestor Assessment & Plan (02/14/2022 12:57 PM BOX TENDER): -Continue home Crestor Assessment & Plan (02/13/2022 5:02 PM BOX TENDER): -Continue home Crestor Class 3 severe obesity due t o excess calories with serious comorbidity and body mass index (BMI) of 40.0 to 44.9 in adult 06/26/2010 Overview (05/22/2017): Description: Obesity Assessment & Plan (04/23/2024 10:37 AM CDT): Encouraged heart healthy diet and lifestyle. Advised 150 min/week of aerobic exercise. Assessment & Plan (02/15/2022 9:22 AM BOX TENDER): -BMI 48 -encourage aggressive management of DM and weight control Benign essential hypertension 06/26/2010 Overview (05/22/2017): Description: Benign Essential Hypertension Assessment & Plan (03/07/2019 9:47 AM BOX TENDER): - Normotensive following arrest - Irbesartan 300 mg daily, metoprolol 12.5 daily, spironolactone 25 mg daily Assessment & Plan (03/02/2019 6:23 PM BOX TENDER): Initially arrived to the floor on nitro [...] Dr. Zhang on every 3 month basis. Current Treatment and Therapy Plans No current plan information found. Past Treatment and Therapy Plans Lifetime Dose Tracking * Chemical Lifetime Dose Automatic Entry Manual Entr y Fluoro Time 11.2 minutes 11.2 minutes 0 minutes Air kerma at the reference point (Ka,r) 4,352.373 mGy 132.9 mGy 4,219.473 mGy DLP 12,783 mGycm 12,783 mGycm 0 mGycm Resolved Problems Problem Noted Date Diagnosed Date [...] (07/27/2019): Added automatically from request for surgery [id number] Unexplained weight loss 07/27/2019 07/0 07/2019 Overview (07/27/2019): Added automatically from request for surgery [id number] Chronic nausea 07/09/2019 08/16/2019 Diarrhea 06/07/2019 08/16/2019 [...] several months with 7 stools the day [employer]. Did receive abx for a UTI around [...] 09/12 and 09/[address] [facility] 09/14 - likely will need BJ extended [...] 09/12 and 09/[address] [facility] 09/14 Assessment & Plan (09/10/2019 3:27 PM [...] 09/12 and 09/[address] [facility] 09/14 Assessment & Plan (09/01/2019 11:43 PM [...] index will have to be calculated using levi's). - Pacemaker reset 08/24 - AAI/DDD 90 [...] index will have to be calculated using levi's). - Pacemaker reset 08/24 - AAI/DDD 90 [...] index will have to be calculated using levi's). - Pacemaker reset 08/24 - AAI/DDD 90 [...] index will have to be calculated using levi's). - Pacemaker reset 08/24 - AAI/DDD 90 - milrinone @ 0.5 for inodilation. - epinephrine (concentrated) @ 0.07 - wean q8h for Levi > 2.2 - furosemide gtt @ 15 [...] index will have to be calculated using levi's). - Pacemaker reset 08/24 - AAI/DDD 90 - milrinone @ 0.5 for inodilation. - epinephrine @ 0.07 - wean q8h for Levi > 2.2 - furosemide gtt @ 15 [...] index will have to be calculated using levi's). - Pacemaker reset 08/24 - AAI/DDD 90 - milrinone @ 0.5 for inodilation. - epinephrine @ 0.09 - wean q12h for Levi > 2.2 - furosemide gtt + diuril [...] index will have to be calculated using levi's). - Pacemaker reset 08/24 - AAI/DDD 90 [...] index will have to be calculated using levi's). - Pacemaker reset 08/24 - AAI/DDD 90 - milrinone @ 0.4 for inodilation. - epinephrine @ 0.08, wean q4h for Levi >2.2 - bedside echo showed lower epi [...] index will have to be calculated using levi's) - veletri off for extubation - milrinone [...] index will have to be calculated using levi's) - veletri 160, monitor PA pressures, wean [...] >2 Assessment & Plan (03/09/2019 9:12 AM BOX TENDER): - TTE 02/25 with severe global reduction [...] 02/28/20192019 Assessment & Plan (03/02/2019 6:22 PM BOX TENDER): Now resolved. Patient now clearly able to [...] 03/03/2019 Assessment & Plan (03/02/2019 6:24 PM BOX TENDER): Trop peak 0.12->0.11->0.10. Per patient's , she did not endorse CP prior to arrest. ST elevations in III, aVR, ST depressions in I, aVL, V5, V6. S/p ASA 243 in the ED, Brilinta 180 mg, and heparin bolus. [facility] 02/24: L main w mild luminal irregularities; [...] 03/03/2019 Assessment & Plan (03/01/2019 1:20 PM BOX TENDER): Likely due to flash pulmonary edema. Meeting criteria for severe ARDS with PaO2/FiO2 75 at PEEP 20 on arrival to the CCU. She was given 120 mg IV Lasix in the ED, 500 mg diuril in the hemodialysis lab technician, and 80 mg IV bolus on arrival [...] pulm edema on CXR this AM. -03/01: SHOE CUTTER now have recommended dysphagia 2 diet and thin/regular liquids, on 1 L NC this AM -PT/OT ordered Fever 02/25/2019 03/03/2019 Assessment & Plan (03/02/2019 6:23 PM BOX TENDER): Now resolved. On night of admission, the [...]
--- OUTSIDE RECORDS SUMMARY | 2024-07-07 10:14 | XMS_ITS | Encounter Summary ---
Author Organization [facility] Address [address] [place] [address] Care Team Providers Care Stone Cleaner Name Role Phone Scotty Oneil MD Primary Care Provider [phone] NerissaMaeve judd MD Unavailable [phone] Castillo Hollis MD Unavailable Aleta Cevallos RN Unavailable [phone] Josette Ramirez MD Unavailable [phone] Miscellaneous, Not In File Unavailable Unava ilable Zenia Gerber MA Unavailable [phone] Encounter Details Date Type Department Care Team (Late st Contact Info) Description 08/24/2019 Documentation [facility] Case Management [address] [place] [address] Court Dumont RN Social History Tobacco Use Types Packs/Day Years [...] often do you attend chur ch or synagogue services? More than 4 times per year 06/10/2019 Do you belong to any clubs o r organizations such as mandaeism groups, unions, fraternal or athletic groups, or [...] on file Legal Sex Female 11:50 PM FINANCIAL SERVICES SPECIALIST Gender Identity Female 05/25/2020 10:45 AM CDT Sexual Orientation Straight 07/07/2019 7: 18 PM CDT documented as of this encounter Plan of Treatment Not on file documented as of this encounter Visit Diagnoses Not on filedocumented in this encounter Additional Health Concerns Infection Onset Date Last Indicated Resolved Time MRSA 08/15/2019 08/15/2019 09/27/2020 5:00 AM CDT COVID: Suspected 02/14/2020 02/14/2020 02/15/2020 1:07 PM FINANCIAL SERVICES SPECIALIST Respiratory Infection (ZOHRA), contact + droplet Comment:Automatically added due to negative COVID-19 result. 02/15/2020 02/15/2020 02/29/2020 3:0 7 AM FINANCIAL SERVICES SPECIALIST COVID19 03/14/2020 03/14/2020 03/28/2020 3:06 AM FINANCIAL SERVICES SPECIALIST COVID: Recovered Comment:Added based on recent COVID infection. 03/28/2020 03/29/2020 07/26/2020 3:05 AM C DT COVID: Suspected 01/17/2022 01/17/2022 01/17/2022 10:16 AM FINANCIAL SERVICES SPECIALIST COVID19 02/12/2022 02/12/2022 02/25/2022 3:05 AM FINANCIAL SERVICES SPECIALIST COVID: Recovered Comment:Added based on recent COVID infection. 02/25/2022 02/25/2022 05/26/2022 3:05 AM C DT documented as of this encounter Care Teams Stone Cleaner Relationship Specialty Start Date End Date Scotty Oneil MD [address] [place] [address] PCP - General 05/10/16 KeedysvilleMaeve MD [address] [place] [address] Surgeon Breast Surgery 10/27/17 Castillo Hollis MD [address] [facility] [address] [place] [address] Radiation Oncology 10/27/17 Aleta Cevallos, RN [address] [place] [address] [place] [address] VAD Coordinator Director Of Instruction 09/13/19 Josette Ramirez MD [address] [place] [address] Surgeon Cardiothoracic Surgery 09/15/19 Miscellaneous, Not In File 09/15/19 Zenia Gerber MA [address] [place] [address] [address] [place] [address] ACO Care Agricultural Mechanic 11/28/20 11/28/20 documented as of this encounter
[2024-07-07 10:16] VITALS: PULSE 108; RESP 20; TEMP 36.5; O2SAT 100
--- NOTE | 2024-07-07 10:35 | ED_ITS ---
HPI - Fall General Chief Complaint: Fall Stated Complaint: fall Time Seen by Provider: 07/07/24 10:35 Source: patient Mode of arrival: ambulatory Limitations: no limitations History of Present Illness HPI Narrative: 69 yo F with hx of CHF, has had LVAD for 5 years, presents with c/o pain to L thumb, R wrist and R elbow, R ribs. Stubbed toe on dog gate and fell forward onto R side. Put hands down to catch herself. Denies hitting head. Called her PCP regarding fall and told her to be seen at for x-rays. Ambulatory with steady gait. R rib pain did not start till day after fall. No CP or SOB. Fall was 4 days ago. All systems reviewed and negative except as noted above. Related Data Home Medications ?Medication ?Instructions ?Recorded ?Confirmed ?Last Taken ?Type albuterol sulfate 90 mcg/actuation inhalation 07/07/24 Unknown History aerosol inhaler allopurinol 100 mg tablet mg 07/07/24 Unknown History bumetanide 1 mg tablet mg 07/07/24 Unknown History cephalexin 250 mg capsule mg 07/07/24 Unknown History ergocalciferol (vitamin D2) 1,250 07/07/24 Unknown History mcg (50,000 unit) capsule fluticasone propionate 50 intranasal 07/07/24 Unknown History mcg/actuation nasal spray,suspension magnesium oxide 400 mg (241.3 mg mg 07/07/24 Unknown History magnesium) tablet metoprolol succinate 25 mg mg PO 07/07/24 Unknown History tablet,extended release 24 hr omeprazole 20 mg capsule,delayed mg 07/07/24 Unknown History release pregabalin 25 mg capsule mg 07/07/24 Unknown History rosuvastatin 40 mg tablet mg 07/07/24 Unknown History semaglutide 2 mg/dose (8 mg/3 mL) mg subcut 07/07/24 Unknown History subcutaneous pen injector (Ozempic) spironolactone 25 mg tablet mg 07/07/24 Unknown History warfarin 2 mg tablet mg 07/07/24 Unknown History Allergies Allergy/AdvReac Type Severity Reaction Status Date / Time empagliflozin (From Allergy Unknown Unknown Verified 07/07/24 10:33 Jardiance) lisinopril Allergy Unknown Unknown Verified 07/07/24 10:33 Review of Systems Review of Systems: CONSTITUTIONAL: Denies fever, chills, or sweats. EYES: Denies visual changes, redness, or discharge. ENT: Denies rhinorrhea, congestion, sore throat, or otalgia. CARDIOVASCULAR: Denies chest pain, palpitations, or edema. RESPIRATORY: Denies cough or dyspnea. GASTROINTESTINAL: Denies abdominal pain, nausea, vomiting, or diarrhea. GENITOURINARY: Denies dysuria or hematuria. SKIN: Denies rash or itching. MUSCULOSKELETAL: Denies back pain . Reports right wrist and elbow pain, left thumb pain. Reports pain to right ribs. NEUROLOGIC: Denies headache, numbness, or weakness. PSYCHIATRIC: Denies anxiety or depression. All other systems reviewed are negative, except as documented in HPI. PMFSH Comments At time of signature, agree with nursing past medical, surgical, social and family history. There is no relevant family history pertinent to the presenting complaint. Exam Narrative: GENERAL: This is a well-nourished, well-developed patient, in no apparent distress. HEAD: normocephalic, atraumatic. EYES: PERRL. Sclera clear/white. Vision is grossly intact. EARS: External ears normal NOSE: External nose normal NECK: Neck supple, non-tender without lymphadenopathy, masses or thyromegaly. CARDIOVASCULAR: Regular rate and rhythm without murmurs, gallops, or rubs. RESPIRATORY: Clear to auscultation. Breath sounds equal bilaterally. No wheezes, rales, or rhonchi. MUSCULOSKELETAL: tenderness to anterior aspect R rib without bruising, swelling or deformity SKIN: warm, Dry, intact with no suspicious lesions or rash, good texture and tu rgor. NEURO: awake, alert, and oriented to person, place and time. There were no obvious focal neurologic abnormalities. EXTREMITIES: mild swelling to right wrist with generalized tenderness. Range of motion intact. Tenderness to radial head of right elbow with swelling. Flexion decreased due to pain. Tenderness and bruising to 1st metacarpal. BACK: Nontender without deformity. Course Course Level of Care: Express Care Visit Vital Signs Vital signs: Vital Signs Temperature 36.5 C 07/07/24 10:16 Pulse Rate 108 H 07/07/24 10:16 Respiratory Rate 20 07/07/24 10:16 Pulse Oximetry 100 07/07/24 10:16 Oxygen Delivery Room Air 07/07/24 10:16 Temperature 36.5 C 07/07/24 10:16 Pulse Rate 108 H 07/07/24 10:16 Respiratory Rate 20 07/07/24 10:16 Pulse Oximetry 100 07/07/24 10:16 Oxygen Delivery Room Air 07/07/24 10:16 Reviewed MDM - Fall MDM Narrative Medical decision making narrative: discussed x-ray results with patient. X-ray of right elbow shows fracture. Patient placed in sling. Referred to Orthopedics for follow-up. Possible fractures to 4th through 7th right ribs. Patient is tender on palpation to this area But there is no bruising or swelling. Patient states also that her right prior pain did not start until 1 day after fall. Recommend follow-up with primary care physician for further outpatient imaging to evaluate possible rib fractures. Patient is alert, nontoxic. Agrees with discharge plan of care. Will go to the ER for any worsening of symptoms. Imaging Data My impression: Agree with radiologist Radiologist's impression: EXAMINATION: XR elbow RT min 3V DATE: 07/07/2024 11:28 INDICATION: Right elbow pain and swelling post fall TECHNIQUE: Anteroposterior, two oblique and lateral views of the right elbow were obtained. COMPARISON: None. FINDINGS: Alignment is normal. Subtle cortical discontinuity the right radial head neck junction with subtle linear sclerosis extending transversely across the head neck junction consistent with a minimally impacted fracture. No evident involvement of the articular cortex. Mild osteoarthritis at the right elbow. Small enthesophytes at the medial and lateral epicondyles. Small right elbow joint effusion with displacement of the anterior but not the posterior fat pads. Soft tissues are otherwise unremarkable. IMPRESSION: 1. Minimally impacted fracture the proximal right radial head neck junction with small elbow joint effusion. Discharge Plan Discharge Clinical Impression: Closed fracture of right elbow Qualifiers: Encounter type: initial encounter Qualified Code(s): S42.401A - Unspecified fracture of lower end of right humerus, initial encounter for closed fracture Left thumb sprain Qualifiers: Encounter type: initial encounter Sprain of finger site: unspecified site Qualified Code(s): S63.602A - Unspecified sprain of left thumb, initial encoun ter Right wrist sprain Qualifiers: Encounter type: initial encounter Wrist sprain location: unspecified location Qualified Code(s): S63.501A - Unspecified sprain of right wrist, initial encounter Multiple fractures of right lower extremity, ribs, and sternum Qualifiers: Encounter type: initial encounter Fracture type: closed Qualified Code(s): S82.91XA - Unspecified fracture of right lower leg, initial encounter for closed fracture Patient Disposition: Home Condition: Stable Instructions: Elbow Fracture (ED), Rib Fracture (ED) Additional Instructions: the x-ray of your right elbow shows a fracture. The x-ray of your right wrist and left thumb were negative for fracture. There were possible fractures to your right 4th, 5th, 6th, 7th rib. There is possible artifact to this x-ray. Follow-up with your primary care physician for further evaluation, possible outpatient imaging to further evaluate evaluate for rib fracture. Take Tylenol every 6-8 hours as needed for pain. Call and schedule follow-up appointment with investigative research specialist. Patient Language: Azerbaijani Prescriptions: No Action cephalexin 250 mg capsule allopurinol 100 mg tablet spironolactone 25 mg tablet magnesium oxide 400 mg (241.3 mg magnesium) tablet warfarin 2 mg tablet omeprazole 20 mg capsule,delayed release(DR/EC) bumetanide 1 mg tablet metoprolol succinate 25 mg tablet extended release 24 hr PO ergocalciferol (vitamin D2) 1,250 mcg (50,000 unit) capsule albuterol sulfate 90 mcg/actuation HFA aerosol inhaler INHALATION fluticasone propionate 50 mcg/actuation spray,suspension INTRANASAL rosuvastatin 40 mg tablet pregabalin 25 mg capsule Ozempic 2 mg/dose (8 mg/3 mL) pen injector SUBCUT Follow-up/Referrals: Jonatan Womack MD [Physician] - ( Follow-up with investigative research specialist for further evaluation of right elbow fracture) Harms,Scotty Sky M.D. [Primary Care Provider] - Time of Disposition: 12:28
--- NOTE | 2024-07-07 11:34 | PC.NURSE ---
1133 PT MAP 74.
== END 2024-07-07 12:34 | disposition home or self-care (01) ==
PROVIDERS: Emergency Provider Nurse Practitioner Family; PCP Family Medicine
DX: S42.401A Unspecified fracture of lower end of right humerus, initial encounter for closed fracture (principal); W18.09XA Striking against other object with subsequent fall, initial encounter; S63.602A Unspecified sprain of left thumb, initial encounter; S63.501A Unspecified sprain of right wrist, initial encounter; S22.41XA Multiple fractures of ribs, right side, initial encounter for closed fracture; I11.0 Hypertensive heart disease with heart failure; I50.9 Heart failure, unspecified; E11.9 Type 2 diabetes mellitus without complications
CPT/HCPCS: 71101; 73080; 73110; 73140; 99204; A4565; G0463